=== PATIENT | male | born 1935 | race Caucasian/White ===

== ENCOUNTER → 2017-12-16 12:01 | Outpatient (CLI) | payer MEDICARE, SELFPAY ==
[2017-12-16 12:51] LABS: Add Manual Diff / Slide Review NO; Basophils Percent Auto 0.2 % (0-2); Eosinophils Percent Auto 1.1 % (2-4); Hematocrit 43.7 % (41-53); Hemoglobin 14.8 g/dL (13.5-17.5); Lymphocytes Percent Auto 7.9 % (25-40); Mean Corpuscular HGB Conc 33.8 % (30-36); Mean Corpuscular Hemoglobin 32.6 PG (26-34); Mean Corpuscular Volume 96.4 fL (80-100); Monocytes Percent Auto 5.5 % (3-14); Neutrophils Absolute Auto 8100 /uL (3000-5900); Neutrophils Percent Auto 85.3 % (50-75); Platelet Count 243 X10^3/uL (150-400); Red Blood Cell Count 4.53 X10^6/uL (4.5-5.9); Red Cell Distribution Width 13.6 % (11.6-14.8); White Blood Cell Count 9.5 X10^3/uL (4.5-11.0)
[2017-12-16 12:53] LABS: Alanine Aminotransferase 29 IU/L (21-72); Albumin 4.4 g/dL (3.5-5.0); Albumin Globulin Ratio 1.5 (1.0-2.8); Alkaline Phosphatase 50 U/L (38-126); Aspartate Aminotransferase 27 IU/L (17-59); BUN Creatinine Ratio 22.9 (6-22); Blood Urea Nitrogen 16 mg/dL (9-20); Calcium 9.9 mg/dL (8.4-10.2); Carbon Dioxide 36 mmol/L (22-32); Chloride 101 mmol/L (98-107); Cholesterol 254 mg/dL (140-199); Estimated Glomerular Filt Rate > 60.0 mL/min (>60); Globulin 2.9 g/dL (1.7-4.1); Glucose 89 mg/dL (80-110); HDL Cholesterol 53 mg/dL (40-60); HEMOLYSIS < 15 (0-50); LDL Cholesterol Calculated 165 mg/dL (<100); Potassium 4.1 mmol/L (3.4-5.1); Sodium 144 mmol/L (137-145); Total Protein 7.3 g/dL (6.3-8.2); Triglycerides 181 mg/dL (35-150)
[2017-12-16 14:05] LABS: TSH w/ Reflex to FT4 0.95 uIU/mL (0.47-4.68)
== END ==
PROVIDERS: Family Provider Family Medicine; PCP Family Medicine; Visit Provider Family Medicine
DX: E78.00 Pure hypercholesterolemia, unspecified (principal); I48.91 Unspecified atrial fibrillation; M35.3 Polymyalgia rheumatica
CPT/HCPCS: 36415; 80053; 80061; 84443; 85025

== ENCOUNTER → 2018-10-06 12:45 | Outpatient (CLI) | payer MEDICARE, SELFPAY | PROVIDERS: Family Provider Family Medicine; PCP Family Medicine; Visit Provider Family Medicine | DX: M35.3 Polymyalgia rheumatica (principal); M85.80 Other specified disorders of bone density and structure, unspecified site; M89.9 Disorder of bone, unspecified; R29.890 Loss of height | CPT/HCPCS: 77080; 77081 ==

== ENCOUNTER 2018-10-19 08:17 | Day surgery (SDC) | payer MEDICARE, SELFPAY ==
[2018-10-19 09:15] VITALS: BP 143/84; PULSE 91; RESP 16; TEMP 36.3; O2SAT 100
[2018-10-19 09:25] VITALS: BMI 21.7
[2018-10-19] MEDS: PROPARACAINE 0.5% OPHTH SOL 2 DROPS EYE-OP (09:34)
[2018-10-19] MEDS: CATARACT EYE COMPOUND (10 DROPS/SYRINGE) 3 DROPS EYE-OP (09:35)
--- NOTE | 2018-10-19 09:48 | PM.PREOP ---
Pre-operative Note Interval Note History & Physical reviewed/Exam performed by Physician: No Changes to H&P: No
--- NOTE | 2018-10-19 09:48 | PM.OP.1 ---
Operative Date/Time/Diagnoses Pre-op diagnosis: Nuclear cataract right eye Procedure & Clinicians Procedure: Cataract Surgery Same procedure as scheduled: Yes Surgeon: Mandeep Astorga Anesthesia Type: MAC +/- and Sedation Operative Notes Procedure in detail: Patient brought to the operating suite. Tetracaine drops placed in the right eye. Patient was prepped and draped in sterile manner. Wire lid speculum was placed in the eye. Betadine drops were placed on the eye. This was irrigated. Lidocaine jelly was placed on the eye. A paracentesis port was created with a side-port blade. 0.1 mL 1% preservative free lidocaine was injected into the anterior chamber. The anterior chamber was deepened with viscoelastic. 2.6 mm keratome was used to create a temporal clear corneal incision. The pupil was floppy and miotic. A 6.25 mm Malugyin ring was used to enlarge the pupil. Cystotome and Utrata forceps were used to create continuous tear capsulorrhexis. Balanced salt solution was used to hydro dissect the nucleus. The phacoemulsification handpiece was inserted and the nucleus was removed using the stop and chop technique. The irrigation aspiration handpiece was inserted and the remaining cortex was removed. Anterior chamber was deepened with viscoelastic. An Neil ZCB00 intraocular lens with a power of 20.5 was injected into the capsular bag. The malyugin ring was removed. Irrigation aspiration handpiece was inserted and the remaining viscoelastic was removed. Incision was hydrated with balanced salt solution and found to be leak free with pressure with Weck-Cat sponges. 0.1 mL Vigamox injected anterior chamber. 0.3 mL Kenalog 10 mg was injected subconjunctivally. Lid speculum was removed. The patient left the operating room in excellent condition. Complications: none Condition: stable Disposition: same day surgery
--- NOTE | 2018-10-19 10:23 | SUR.OPER ---
Supine on eye stretcher, head on extension cradle secured with tape. Arms tucked at sides with blanket. Pillow under knees. Supine on eye stretcher, head on extension cradle secured with tape. Arms tucked at sides with blanket. Pillow under knees.
--- NOTE | 2018-10-19 10:23 | SUR.OPER ---
Supine on eye stretcher, head on extension cradle secured with tape. Arms tucked at sides with blanket. Pillow under knees.
[2018-10-19] MEDS: MOXIFLOXACIN OPHTH DROPS 3 ML BOTTLE 2 DROPS INJ ×2 (10:29)
[2018-10-19] MEDS: TETRACAINE 0.5% OPHTH DROPS 15 ML 2 DROPS EYE-RIGHT (10:30)
[2018-10-19] MEDS: CHONDROIDTIN/SOD HYALURONATE 1.05 ML SYRINGE INTRAOCULA (10:30)
[2018-10-19] MEDS: TRIAMCINOLONE 50 MG/5 ML VIAL INJ (10:30)
[2018-10-19] MEDS: BALANCED SALT IRRIG SOLN NO.2 500 ML, EPINEPHrine 1 MG IRR (10:31)
[2018-10-19 10:40] VITALS: BP 103/70; PULSE 81; RESP 14; TEMP 36.1; O2SAT 100
== END 2018-10-19 10:52 | disposition home or self-care (01) ==
LOC: OR 08:20
PROVIDERS: Family Provider Family Medicine; PCP Family Medicine; Visit Provider Ophthalmology
PROC: (CPT 66984; principal; 2018-10-19 10:15)
DX: H25.11 Age-related nuclear cataract, right eye (principal); I48.91 Unspecified atrial fibrillation
CPT/HCPCS: 66984; J0171; J2250; J3010; J3301

== ENCOUNTER 2018-11-09 09:14 | Day surgery (SDC) | payer MEDICARE, SELFPAY ==
[2018-11-09 09:51] VITALS: BMI 22.2
[2018-11-09 09:58] VITALS: BP 107/58; PULSE 74; RESP 16; TEMP 36.6; O2SAT 99
[2018-11-09] MEDS: PROPARACAINE 0.5% OPHTH SOL 2 DROPS EYE-OP (10:00)
[2018-11-09] MEDS: CATARACT EYE COMPOUND (10 DROPS/SYRINGE) 3 DROPS EYE-OP (10:05)
--- NOTE | 2018-11-09 11:23 | PM.PREOP ---
Pre-operative Note Interval Note History & Physical reviewed/Exam performed by Physician: No Changes to H&P: No
--- NOTE | 2018-11-09 11:23 | PM.OP.1 ---
Operative Date/Time/Diagnoses Pre-op diagnosis: Nuclear Cataract Left eye Post-op diagnosis: same Procedure & Clinicians Surgeon: Mandeep Astorga Anesthesia Type: MAC +/- and Sedation Operative Notes Procedure in detail: Patient brought to the operating suite. Tetracaine drops placed in the left eye. Patient was prepped and draped in sterile manner. Wire lid speculum was placed in the eye. Betadine drops were placed on the eye. This was irrigated. Lidocaine jelly was placed on the eye. A paracentesis port was created with a side-port blade. 0.1 mL 1% preservative free lidocaine was injected into the anterior chamber. The anterior chamber was deepened with viscoelastic. 2.6 mm keratome was used to create a temporal clear corneal incision. The pupil was floppy and miotic. A 6.25mm Malyugin ring was used to enlarge the pupil. Cystotome and Utrata forceps were used to create continuous tear capsulorrhexis. Balanced salt solution was used to hydro dissect the nucleus. The phacoemulsification handpiece was inserted and the nucleus was removed using the stop and chop technique. The irrigation aspiration handpiece was inserted and the remaining cortex was removed. Anterior chamber was deepened with viscoelastic. An Neil ZCB00 intraocular lens with a power of 21.0 was injected into the capsular bag. The Malyugin ring was removed. A tear was noted in the anterior capsule. This did not extend and there was no vitreous. Irrigation aspiration handpiece was inserted and the remaining viscoelastic was removed. Incision was hydrated with balanced salt solution and found to be leak free with pressure with Weck-Cat sponges. 0.1 mL Vigamox injected anterior chamber. 0.3 mL Kenalog 10 mg was injected subconjunctivally. Lid speculum was removed. The patient left the operating room in excellent condition. Complications: none Condition: stable Disposition: same day surgery
[2018-11-09] MEDS: PHENYLEPHRINE/LIDOCAINE VIAL (OR) 0.2 ML EYE-OP (11:41)
[2018-11-09] MEDS: TRIAMCINOLONE 50 MG/5 ML VIAL INJ (11:42)
[2018-11-09] MEDS: MOXIFLOXACIN INJ 5 MG/ML VIAL EYE-OP (11:42)
[2018-11-09] MEDS: LIDOCAINE JELLY 2% 5 ML 1 APPLIC TOP (11:43)
[2018-11-09] MEDS: BALANCED SALT IRRIG SOLN NO.2 500 ML, EPINEPHrine 1 MG IRR (11:43)
[2018-11-09] MEDS: CHONDROIDTIN/SOD HYALURONATE 1.05 ML SYRINGE INTRAOCULA (11:43)
[2018-11-09] MEDS: TETRACAINE 0.5% OPHTH DROPS 4 ML 2 DROPS EYE-OP (11:43)
[2018-11-09 12:05] VITALS: BP 105/65; PULSE 84; RESP 16; TEMP 36.2; O2SAT 100
--- NOTE | 2018-11-09 15:06 | SUR.PREOP ---
Addendum entered by Prachi Garcia R.N. 11/09/18 15:13: bag place in safe bag [id number] and logged into the safe book. Original Note: 1500 Staff found gold colored ring in OR room 1; remembered pt taking off ring. I called and spoke to his , she checked her 's hand (he was sleeping) and found that it was missing. She described it as gold and square. 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
--- NOTE | 2018-11-09 15:19 | SUR.PREOP ---
pre p pt took off gold band . he was planning on giving it to his pre op. when i asked pt if he handed it off he told me he had. I never witnessed it. later the band was found in the OR. placed in to valuables for pt to pickling grader later
== END 2018-11-09 12:10 | disposition home or self-care (01) ==
LOC: OR 09:16
PROVIDERS: Family Provider Family Medicine; PCP Family Medicine; Visit Provider Ophthalmology
PROC: (CPT 66982; principal; 2018-11-09 11:15)
DX: H25.12 Age-related nuclear cataract, left eye (principal); I48.91 Unspecified atrial fibrillation; E78.00 Pure hypercholesterolemia, unspecified; Z79.01 Long term (current) use of anticoagulants
CPT/HCPCS: 66982; J0171; J2250; J3301

== ENCOUNTER → 2018-11-24 12:40 | Outpatient (CLI) | payer MEDICARE, SELFPAY ==
[2018-11-24 13:11] LABS: Hematocrit 41.9 % (41-53); Hemoglobin 14.2 g/dL (13.5-17.5); Mean Corpuscular HGB Conc 33.8 % (30-36); Mean Corpuscular Hemoglobin 33.4 PG (26-34); Mean Corpuscular Volume 98.7 fL (80-100); Platelet Count 238 X10^3/uL (150-400); Red Blood Cell Count 4.25 X10^6/uL (4.5-5.9); Red Cell Distribution Width 14.6 % (11.6-14.8); White Blood Cell Count 6.5 X10^3/uL (4.5-11.0)
[2018-11-24 13:56] LABS: Alanine Aminotransferase 23 IU/L (21-72); Albumin Globulin Ratio 1.5 (1.0-2.8); Alkaline Phosphatase 60 U/L (38-126); Aspartate Aminotransferase 30 IU/L (17-59); BUN Creatinine Ratio 23.3 (6-22); Blood Urea Nitrogen 14 mg/dL (9-20); Calcium 9.7 mg/dL (8.4-10.2); Carbon Dioxide 29 mmol/L (22-32); Chloride 100 mmol/L (98-107); Estimated Glomerular Filt Rate > 60.0 mL/min (>60); Globulin 2.6 g/dL (1.7-4.1); Glucose 105 mg/dL (80-110); HEMOLYSIS < 15 (0-50); Sodium 139 mmol/L (137-145); Total Protein 6.6 g/dL (6.3-8.2); Uric Acid 5.7 mg/dL (3.5-8.5)
[2018-11-24 13:59] LABS: Erythrocyte Sedimentation Rate 7 MM/HR (0-15)
[2018-11-24 14:09] LABS: C-Reactive Protein Quant < 0.5 mg/dL (<1.0)
[2018-11-24 14:21] LABS: TSH w/ Reflex to FT4 1.09 uIU/mL (0.47-4.68)
== END ==
PROVIDERS: PCP Family Medicine; Visit Provider Family Medicine
DX: E78.00 Pure hypercholesterolemia, unspecified (principal); M35.3 Polymyalgia rheumatica; M47.816 Spondylosis without myelopathy or radiculopathy, lumbar region; M51.36 Other intervertebral disc degeneration, lumbar region
CPT/HCPCS: 36415; 80053; 84443; 84550; 85027; 85651; 86140

== ENCOUNTER 2019-06-30 11:57 | Inpatient (IN) | payer MEDICARE, SELFPAY ==
[2019-06-30] VITALS (29 sets, daily range): BP systolic 69–139; BP diastolic 40–92; PULSE 74–156; RESP 12–27; TEMP 36.1–36.8; O2SAT 93–100; BMI 21.3
--- NOTE | 2019-06-30 | PATH_ITS ---
[facility] Accession Number: [id number] . 01 Material submitted: . colon - COLON BIOPSY AT 30 CM . 02 Diagnosis: Colon At 30 CM, Biopsy: Fragments of ulcer bed; please see comment. No intact colonic mucosa present. No neoplasm identified. [facility] 07/04/2019 1306 Local . 02 Comment: The finding of ulcer raises a differential diagnosis including infection, drug/toxin-induced injury, ischemia, and in the appropriate clinical setting, idiopathic inflammatory bowel disease. . . . 02 Electronically signed: . Jamey Harris MD, PhD, Pathologist NPI- [id number] . 01 Gross description: . Received in formalin, labeled colon biopsy @ 30 cm, are multiple fragments of infante tissue (0.8 x 0.5 x 0.1 cm in aggregate). Filtered and entirely submitted in cassette A1. ([id number]) /MRV 07/03/2019 2159 Local . 02 Pathologist provided ICD-10: K63.3 . 02 CPT . [id number] Performed at: 01 [facility] [address], [place], [place] [id number] MD Brad Macdonald MD Phone: [phone] Performed at: 02 [facility] [address] [place], [place] [id number] MD Zulay Castaneda MD Phone: [phone]
--- NOTE | 2019-06-30 12:20 | DI.RAD.S_ITS ---
PROCEDURE: XR CHEST 1V INDICATIONS: Flu like symptoms TECHNIQUE: One view of the chest was acquired. COMPARISON: [facility], , CHEST 2 VIEW, 07/19/2014, 10:10. FINDINGS: Surgical changes and devices: None. Lungs and pleura: Lungs are clear. No pleural effusions or pneumothorax. Chronic elevation of right hemidiaphragm. Mediastinum: Mediastinal contours appear normal. Heart size is normal. Bones and chest wall: No suspicious bony lesions. Overlying soft tissues appear unremarkable. IMPRESSION: No evidence acute pulmonary process. Dictated by: John Rebollar M.D. on 06/30/2019 at 12:42 Approved by: John Rebollar M.D. on 06/30/2019 at 12:44
--- NOTE | 2019-06-30 12:30 | ED_ITS ---
HPI - Weakness General Chief complaint: Weakness Stated complaint: very depressed/suicidal/fall Time Seen by Provider: 06/30/19 12:19 Source: patient and family Limitations: no limitations History of Present Illness HPI Narrative: This is a 84-year-old male comes to the emergency department with complaint of feeling weak and unwell for the past several days. He states he has pain all over from multiple falls he falls quite frequently most recently was yesterday. He did not think he had a head injury initially but is unsure. He is on warfarin. His weakness has been generalized. He has also felt like his heart rate has been elevated at times. He denies any chest pain or pressure. He denies any shortness of breath. He denies any nausea or vomiting he has had some achiness in his belly but denies any discrete pain. He has had bright red blood in his stool for the past 4 days and describes loose stools with a ?sheet of bright red blood when he wipes. Patient takes warfarin for atrial fibrillation. His primary care to stop the digoxin about a week ago as he has been feeling increasingly weak and they thought this may be part of his symptomatology. He also has a history of colon cancer, aortic aneurysm, dyslipidemia, hypertension, prior lung cancer, prior salivary gland cancer, TIA, and chronic lumbar/mid and low back pain. Related Data Home Medications Medication Instructions Recorded Confirmed CYANOCOBALAMIN (VITAMIN B-12) 1 tab PO QDAY #0 07/22/12 06/30/19 cholecalciferol (vitamin D3) 1,000 unit PO QDAY #0 01/20/17 06/30/19 [Vitamin D3] Previous Rx's Medication Instructions Recorded sildenafil (pulm.hypertension) 20 See Rx Instructions PO .PRN #30 tab 05/31/18 mg tablet losartan 50 mg tablet 25 mg PO QDAY #45 tab 08/24/18 digoxin 125 mcg (0.125 mg) tablet 125 mcg PO QDAY #90 tab 11/19/18 tamsulosin 0.4 mg capsule 0.4 mg PO DAILY #90 cap 11/24/18 ipratropium bromide 42 mcg (0.06 2 spray NASAL QID #15 ml 01/14/19 %) nasal spray prednisone 5 mg tablet 10 mg PO QDAY #180 tab 01/28/19 warfarin 2.5 mg tablet 2.5 mg PO DAILY #130 tab 02/28/19 metoprolol succinate 25 mg 25 mg PO QDAY #90 tab 05/09/19 tablet,extended release 24 hr Allergies Allergy/AdvReac Type Severity Reaction Status Date / Time iodine [IODINE] Allergy Mild FACIAL Verified 06/30/19 12:28 SWELLING Patient History Medical History Ankle pain (Chronic) Anxiety (Acute) Aortic aneurysm (Chronic) Atrial fibrillation (Chronic) Cancer of parotid gland (Resolved) Chronic back pain (Chronic) Chronic cough (Chronic) Colorectal cancer (Resolved) Foot pain (Chronic) Head and neck cancer (Resolved) Hyperlipidemia (Chronic) Hypertension (Chronic) Lumbar spine pain (Chronic) Lung cancer (Resolved) Mid back pain (Chronic) Osteopenia (Chronic 2015) Positive PPD (Resolved) Salivary gland cancer (Resolved) TIA (transient ischemic attack) (Resolved) Surgical History Anesthesia (Resolved) History of head, eyes, ears, nose, and throat (HEENT) surgery (Resolved) History of sinus surgery (Resolved) History of surgery of head (Resolved) History of throat surgery (Resolved) Status post cervical spinal fusion (Resolved) Status post colectomy (Resolved) Status post lumbar laminectomy (Resolved) Family History Brother Heart disease Mother Breast cancer Heart disease Father Heart disease Social History marital status: household members: spouse Smoking Status: Former smoker alcohol intake: current (2+ A DAY ) substance use type: does not use Smoking Status: Former smoker alcohol intake frequency: 0-2 drinks per day Substance Use Type: does not use Exam Narrative Exam Narrative: GEN: Patient appears in mild distress. HEAD: No evidence of trauma, no raccoon/Guerrero sign. NECK: Nontender, painless range of motion, trachea midline Negative Nexus criteria, there is no mid line tenderness, distracting injury, altered mental status, neuro deficit, recent EtOH. EYES: PERRLA, EOMI ENT: External inspection normal, trachea is midline, TM's are normal no hemotypanum, no dental or oral injury, airway is normal and with normal occlusion, No bony tenderness RESP: Chest is nontender and has symmetric movement, no ecchymosis, breath sounds are normal no crackles, wheezes or rales, patient does have bruises on his anterior chest consistent with prior falls and landing on his walker. CVS: Heart sounds are normal, no murmur noted, No JVD. ABG/GI: Nontender, soft, normal bowel sounds, no distention, no organomegaly, pelvic rock is negative GENIT, RECTAL: Normal external inspection, normal rectal tone, [prostate is in normal position] NEURO: Oriented AOx3, neuro is grossly intact, sensation and motor is normal all 4 extremities moving, cranial nerves II through XII are intact, GCS is 15 PSYCH: Normal mood and affect SKIN: Intact, warm and dry, no crepitus and without decubitus BACK: No CVA tenderness, no vertebral tenderness, no step-off's, no crepitus EXT: Atraumatic, hips are nontender, no pedal edema, normal color and temperature, normal range of motion of extremities with normal tendon exam, 2+ pulses in all four extremities Initial Vital Signs Initial Vital Signs: Vital Signs Temperature 97.9 F 06/30/19 12:00 Pulse Rate 125 H 06/30/19 12:00 Respiratory Rate 20 06/30/19 12:00 Blood Pressure 77/40 L 06/30/19 12:00 Pulse Oximetry 97 06/30/19 12:00 Course Orders Ordered: ED Orders 06/30/19 12:15 Complete Blood Count AUTO DIFF Stat Comprehensive Metabolic Panel Stat Digoxin Stat Lactate (Lactic Acid) Stat Magnesium Stat NT-proBNP (BNP-Adult 18+) Stat Packed Cells Stat Partial Thromboplastin Time Stat Prothrombin Time INR Stat Thyroid Stimulating Hormone Stat Troponin & CK Cardiac Panel Stat Type and Screen Stat 06/30/19 12:20 XR chest 1V Stat EKG-12 Lead Stat 06/30/19 12:43 CT abdomen pelvis w con Stat CT head/brain wo con Stat 06/30/19 14:13 Urine Culture Stat Urine Microscopic Stat Discontinued Medications Digoxin (Lanoxin) 500 mcg IV NOW ONE Stop: 06/30/19 12:31 Last Admin: 06/30/19 12:37 Dose: 500 mcg Documented by: MARYSOL Fentanyl (Sublimaze) 25 mcg IV NOW ONE Stop: 06/30/19 13:40 Last Admin: 06/30/19 13:49 Dose: 25 mcg Documented by: KRISTALONEStan Sodium Chloride (Normal Saline 0.9%) 1,000 mls @ 1,000 mls/hr IV BOLUS ONE Stop: 06/30/19 13:43 Last Infusion: 06/30/19 14:20 Dose: 0 mls/hr Documented by: Admin: 06/30/19 12:52 Dose: 1,000 mls/hr Documented by: MARYSOL Phytonadione 5 mg/ Dextrose 50.5 mls @ 101 mls/hr IV NOW ONE Stop: 06/30/19 14:47 Last Infusion: 06/30/19 16:14 Dose: 0 mls/hr Documented by: Admin: 06/30/19 15:20 Dose: 101 mls/hr Documented by: GEOFF Methylprednisolone (Solu-Medrol 125 Mg Vial) 125 mg IV NOW ONE Stop: 06/30/19 13:40 Last Admin: 06/30/19 13:49 Dose: 125 mg Documented by: GEOFF Pantoprazole Sodium (Protonix) 40 mg IV NOW ONE Stop: 06/30/19 15:03 Last Admin: 06/30/19 15:20 Dose: 40 mg Documented by: GEOFF Vital Signs Vital signs: Vital Signs - 8 hr 06/30/19 12:00 06/30/19 12:11 06/30/19 12:20 Temperature 97.9 F Pulse Rate 125 H 110 H 154 H Respiratory Rate 20 22 22 Blood Pressure 77/40 L Blood Pressure [Left Arm] 106/58 L 99/58 L Pulse Oximetry 97 99 95 06/30/19 12:30 06/30/19 12:37 06/30/19 13:30 Temperature Pulse Rate 140 H 140 H 120 H Respiratory Rate 20 24 Blood Pressure 86/61 L Blood Pressure [Left Arm] 88/61 L 133/92 H Pulse Oximetry 96 98 06/30/19 14:04 06/30/19 15:00 Temperature Pulse Rate 118 H 90 Respiratory Rate 27 H 25 H Blood Pressure Blood Pressure [Left Arm] 99/66 124/58 L Pulse Oximetry 93 95 MDM - Weakness Lab Data Attestation: I reviewed the patient's lab results. Result diagrams: 06/30/19 12:15 06/30/19 12:15 Labs: Lab Results 06/30/19 06/30/19 06/30/19 Range/Units 12:15 12:15 12:15 WBC 8.0 (4.5-11.0) X10^3/uL RBC 2.58 L (4.5-5.9) X10^6/uL Hgb 8.5 L (13.5-17.5) g/dL Hct 25.6 L (41-53) % MCV 99.1 (80-100) fL MCH 33.0 (26-34) PG MCHC 33.4 (30-36) % RDW 13.6 (11.6-14.8) % Plt Count 250 (150-400) X10^3/uL Neut % (Auto) 83.9 H (50-75) % Lymph % (Auto) 9.7 L (25-40) % Ransom % (Auto) 5.6 (3-14) % Eos % (Auto) 0.3 L (2-4) % Baso % (Auto) 0.5 (0-2) % Neut # (Auto) 6700 (2759-7005) /uL Lymph # (Auto) 800 L (0721-3895) /uL Ransom # (Auto) 400 (0-900) /uL Eos # (Auto) 0 (0-450) /uL Baso # (Auto) 0 (0-100) /uL PT 29.6 H (10.1-12.7) SECONDS INR 2.6 H (0.9-1.3) APTT 35 (26.4-36.2) SECONDS Sodium 136 L (137-145) mmol/L Potassium 3.9 (3.4-5.1) mmol/L Chloride 104 (98-107) mmol/L Carbon Dioxide 25 (22-32) mmol/L BUN 37 H (9-20) mg/dL Creatinine 0.63 L (0.66-1.25) mg/dL Estimated GFR > 60.0 (>60) mL/min BUN/Creatinine Ratio 58.7 H (6-22) Glucose 135 H (80-110) mg/dL Lactate (0.7-2.1) mmol/L Calcium 8.7 (8.4-10.2) mg/dL Magnesium (1.6-2.3) mg/dL Total Bilirubin 0.6 (0.2-1.3) mg/dL AST 22 (17-59) IU/L ALT 14 (<50) IU/L Alkaline Phosphatase 49 (38-126) U/L Total Creatine Kinase 36 L (55-170) U/L CK-MB (CK-2) TNP CK-MB (CK-2) Rel Index TNP Troponin I < 0.012 (0.01-0.034) ng/mL NT-Pro-B Natriuret Pep 720 H (<450) pg/mL Total Protein 5.8 L (6.3-8.2) g/dL Albumin 3.2 L (3.5-5.0) g/dL Globulin 2.6 (1.7-4.1) g/dL Albumin/Globulin Ratio 1.2 (1.0-2.8) TSH (0.47-4.68) uIU/mL Urine RBC (0-5/HPF) Urine WBC (0-5/HPF) Ur Squamous Epith Cells (0-5/HPF) Amorphous Sediment Urine Bacteria (None) Urine Mucus (Negative) Ur Culture Indicated? Digoxin (0.8-2.0) ng/mL Blood Type Antibody Screen Crossmatch 06/30/19 06/30/19 06/30/19 Range/Units 12:15 12:15 12:15 WBC (4.5-11.0) X10^3/uL RBC (4.5-5.9) X10^6/uL Hgb (13.5-17.5) g/dL Hct (41-53) % MCV (80-100) fL MCH (26-34) PG MCHC (30-36) % RDW (11.6-14.8) % Plt Count (150-400) X10^3/uL Neut % (Auto) (50-75) % Lymph % (Auto) (25-40) % Ransom % (Auto) (3-14) % Eos % (Auto) (2-4) % Baso % (Auto) (0-2) % Neut # (Auto) (3251-3587) /uL Lymph # (Auto) (9372-7974) /uL Ransom # (Auto) (0-900) /uL Eos # (Auto) (0-450) /uL Baso # (Auto) (0-100) /uL PT (10.1-12.7) SECONDS INR (0.9-1.3) APTT (26.4-36.2) SECONDS Sodium (137-145) mmol/L Potassium (3.4-5.1) mmol/L Chloride (98-107) mmol/L Carbon Dioxide (22-32) mmol/L BUN (9-20) mg/dL Creatinine (0.66-1.25) mg/dL Estimated GFR (>60) mL/min BUN/Creatinine Ratio (6-22) Glucose (80-110) mg/dL Lactate 3.2 H (0.7-2.1) mmol/L Calcium (8.4-10.2) mg/dL Magnesium (1.6-2.3) mg/dL Total Bilirubin (0.2-1.3) mg/dL AST (17-59) IU/L ALT (<50) IU/L Alkaline Phosphatase (38-126) U/L Total Creatine Kinase (55-170) U/L CK-MB (CK-2) CK-MB (CK-2) Rel Index Troponin I (0.01-0.034) ng/mL NT-Pro-B Natriuret Pep (<450) pg/mL Total Protein (6.3-8.2) g/dL Albumin (3.5-5.0) g/dL Globulin (1.7-4.1) g/dL Albumin/Globulin Ratio (1.0-2.8) TSH (0.47-4.68) uIU/mL Urine RBC (0-5/HPF) Urine WBC (0-5/HPF) Ur Squamous Epith Cells (0-5/HPF) Amorphous Sediment Urine Bacteria (None) Urine Mucus (Negative) Ur Culture Indicated? Digoxin < 0.4 L (0.8-2.0) ng/mL Blood Type A Positive Antibody Screen Negative Crossmatch See Detail 06/30/19 06/30/19 06/30/19 Range/Units 12:15 12:15 14:13 WBC (4.5-11.0) X10^3/uL RBC (4.5-5.9) X10^6/uL Hgb (13.5-17.5) g/dL Hct (41-53) % MCV (80-100) fL MCH (26-34) PG MCHC (30-36) % RDW (11.6-14.8) % Plt Count (150-400) X10^3/uL Neut % (Auto) (50-75) % Lymph % (Auto) (25-40) % Ransom % (Auto) (3-14) % Eos % (Auto) (2-4) % Baso % (Auto) (0-2) % Neut # (Auto) (6657-5745) /uL Lymph # (Auto) (6141-5364) /uL Ransom # (Auto) (0-900) /uL Eos # (Auto) (0-450) /uL Baso # (Auto) (0-100) /uL PT (10.1-12.7) SECONDS INR (0.9-1.3) APTT (26.4-36.2) SECONDS Sodium (137-145) mmol/L Potassium (3.4-5.1) mmol/L Chloride (98-107) mmol/L Carbon Dioxide (22-32) mmol/L BUN (9-20) mg/dL Creatinine (0.66-1.25) mg/dL Estimated GFR (>60) mL/min BUN/Creatinine Ratio (6-22) Glucose (80-110) mg/dL Lactate (0.7-2.1) mmol/L Calcium (8.4-10.2) mg/dL Magnesium 1.7 (1.6-2.3) mg/dL Total Bilirubin (0.2-1.3) mg/dL AST (17-59) IU/L ALT (<50) IU/L Alkaline Phosphatase (38-126) U/L Total Creatine Kinase (55-170) U/L CK-MB (CK-2) CK-MB (CK-2) Rel Index Troponin I (0.01-0.034) ng/mL NT-Pro-B Natriuret Pep (<450) pg/mL Total Protein (6.3-8.2) g/dL Albumin (3.5-5.0) g/dL Globulin (1.7-4.1) g/dL Albumin/Globulin Ratio (1.0-2.8) TSH 1.61 (0.47-4.68) uIU/mL Urine RBC None seen (0-5/HPF) Urine WBC 1-5/hpf (0-5/HPF) Ur Squamous Epith Cells 0-1 /hpf (0-5/HPF) Amorphous Sediment 1+ Urine Bacteria None seen (None) Urine Mucus 1+ H (Negative) Ur Culture Indicated? Specimen cultured Digoxin (0.8-2.0) ng/mL Blood Type Antibody Screen Crossmatch 06/30/19 Range/Units 14:40 WBC (4.5-11.0) X10^3/uL RBC (4.5-5.9) X10^6/uL Hgb (13.5-17.5) g/dL Hct (41-53) % MCV (80-100) fL MCH (26-34) PG MCHC (30-36) % RDW (11.6-14.8) % Plt Count (150-400) X10^3/uL Neut % (Auto) (50-75) % Lymph % (Auto) (25-40) % Ransom % (Auto) (3-14) % Eos % (Auto) (2-4) % Baso % (Auto) (0-2) % Neut # (Auto) (2573-2560) /uL Lymph # (Auto) (1406-2576) /uL Ransom # (Auto) (0-900) /uL Eos # (Auto) (0-450) /uL Baso # (Auto) (0-100) /uL PT (10.1-12.7) SECONDS INR (0.9-1.3) APTT (26.4-36.2) SECONDS Sodium (137-145) mmol/L Potassium (3.4-5.1) mmol/L Chloride (98-107) mmol/L Carbon Dioxide (22-32) mmol/L BUN (9-20) mg/dL Creatinine (0.66-1.25) mg/dL Estimated GFR (>60) mL/min BUN/Creatinine Ratio (6-22) Glucose (80-110) mg/dL Lactate 1.4 (0.7-2.1) mmol/L Calcium (8.4-10.2) mg/dL Magnesium (1.6-2.3) mg/dL Total Bilirubin (0.2-1.3) mg/dL AST (17-59) IU/L ALT (<50) IU/L Alkaline Phosphatase (38-126) U/L Total Creatine Kinase (55-170) U/L CK-MB (CK-2) CK-MB (CK-2) Rel Index Troponin I (0.01-0.034) ng/mL NT-Pro-B Natriuret Pep (<450) pg/mL Total Protein (6.3-8.2) g/dL Albumin (3.5-5.0) g/dL Globulin (1.7-4.1) g/dL Albumin/Globulin Ratio (1.0-2.8) TSH (0.47-4.68) uIU/mL Urine RBC (0-5/HPF) Urine WBC (0-5/HPF) Ur Squamous Epith Cells (0-5/HPF) Amorphous Sediment Urine Bacteria (None) Urine Mucus (Negative) Ur Culture Indicated? Digoxin (0.8-2.0) ng/mL Blood Type Antibody Screen Crossmatch Urine Dip Bedside Urine Glucose Negative Bedside Urine Bilirubin ++ 2 Bedside Urine Ketone - Negative Urine Specific [place] 1.010 Bedside Urine Occult Blood - Negative Bedside Urine pH 6.0 Bedside Urine Protein +/- 15 Bedside Urine Urobilinogen +/- 1mg Bedside Urine Nitrite - Negative Bedside Urine Leukocytes +/- [address] scan - head: Radiologist Impression: [address] [address] [address] Scan Report Signed Patient: Alex Galan BMR#: [id number] : 6Acct:[id number] Age/Sex: 84 / MDate of Service: 06/30/19 Loc: ED Accession Number: [id number] Procedure: CT head/brain wo con Ordering Provider: Pricila Wilcox D.O. PROCEDURE: CT HEAD/BRAIN WO CON INDICATIONS: multiple falls, on warfarin TECHNIQUE: Noncontrast 4.5 mm thick angled axial sections acquired from the foramen magnum to the vertex, with coronal and sagittal reformats. For radiation dose reduction, the following was used: automated exposure control, adjustment of mA and/or kV according to patient size. COMPARISON: [facility], MR, BRAIN WITHOUT CONTRAST, 05/19/2017, 13:49. [facility], MR, STROKE PROTOCOL, 01/09/2014, 13:15. [facility], CT, HEAD WITHOUT CONTRAST, 01/05/2014, 7:53. FINDINGS: Image quality: Excellent. CSF spaces: Basal cisterns are patent. No extra-axial fluid collections. The ventricles are symmetric in size and shape. Brain: No intracranial bleeds or masses. There is cerebral volume loss for age, with resultant ventricular and sulcal prominence. There are periventricular and deep white matter chronic small vessel ischemic changes. Old lacunar infarcts in the right thalamus and internal capsule. There is intracranial internal carotid artery atherosclerosis. Skull and face: Calvarium and visualized facial bones appear intact, without suspicious lesions. Sinuses: Visualized sinuses and mastoids are clear. IMPRESSION: 1. No acute intracranial abnormalities. 2. Cerebral volume loss and chronic microvascular ischemic changes. 2. Old lacunar infarcts. Dictated by: Dwight Gaviria M.D. on 06/30/2019 at 13:20 Approved by: Dwight Gaviria M.D. on 06/30/2019 at 13:24 CT scan - abdomen/pelvis: Radiologist Impression: [place] [address] CT Scan Report Signed Patient: Alex Galan BMR#: [id number] : 6Acct:[id number] Age/Sex: 84 / MDate of Service: 06/30/19 Loc: ED Accession Number: [id number] Procedure: CT abdomen pelvis w con Ordering Provider: Pricila Wilcox D.O. PROCEDURE: CT ABDOMEN PELVIS W CON INDICATIONS: rectal bleeding, BRB and hx colon ca TECHNIQUE: After the administration of intravenous contrast, 5 mm thick sections acquired from the diaphragm to the symphysis. 5 mm coronal and sagittal reformats were acquired. For radiation dose reduction, the following was used: automated exposure control, adjustment of mA and/or kV according to patient size. COMPARISON: None. FINDINGS: Image quality: Excellent. ABDOMEN: Lung bases: Lung bases are clear. 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 Scattered vascular calcifications seen in the aorta. Coronary artery calcifications are present. Solid organs: Liver is normal in size and enhancement. Gallbladder negative. Biliary system is non dilated. Pancreas enhances normally. Spleen is normal in size and enhancement. No adrenal nodules. Kidneys demonstrate normal size and enhancement, without hydronephrosis. Left renal cortical scarring/small infarcts. 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 Postsurgical changes, with surgical anastomosis present in the distal colon. Colonic diverticulosis is seen without evidence of acute complication. Normal appendix. No free fluid or air. Nodes and vessels: No retroperitoneal or mesenteric adenopathy by size criteria. Aorta and inferior vena cava are normal in size. Miscellaneous: No ventral hernias. PELVIS: Genitourinary: Bladder is unremarkable. Numerous pelvic surgical clips. Small bilateral fat-containing inguinal hernias. Bones: No suspicious bony lesions. No vertebral body compression fractures. Diffuse spondylosis and facet arthropathy IMPRESSION: Overall, no acute abnormality seen. 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 Postsurgical changes and chronic incidental findings as detailed above. Normal appendix Large amount of stool within the rectal vault raising the possibility of fecal retention/impaction ECG Data Attestation: I personally reviewed and interpreted this ECG as follows: Interpretation: AFib with rapid ventricular response rate of 119 QRS 80 and QTC 385. No obvious ST segment changes appreciated. MDM Narrative Medical decision making narrative: Patient comes in with AFib with RVR, patient did have his digoxin stopped about a week ago but he has also noticed bright red blood with his stool. His hemoglobin is 8.5 today was 14 in November of 2018 with a significant change. He does not have a white count or drop in his platelets. Patient is anticoagulated on Coumadin with an INR of 2.6. His labs show a sodium 136, BUN is 37 creatinine is and typical range for the patient. Glucose is 135 his lactate is elevated at 3.2, LFTs do not show any major abnormalities. Troponins negative with a BNP that is elevated at 720 with no priors for comparison. And TSH is 1.61. Does levels less than 0.4. No acute changes or obvious pulmonary edema. Negative this was ordered as patient has had multiple falls some hitting his head and is on Coumadin. He has old lacunar infarcts and chronic microvascular ischemic changes. With his history of colon cancer CT of abdomen pelvis was ordered as he has had bright red bleeding. This shows aneurysmal enlargement the ascending thoracic aorta measuring 4.7 cm. Patient has duodenal diverticulum with air-fluid level. Postsurgical changes and a large amount of stool in the rectal vault raising possibility of fecal impaction/retention. Patient does not have prior imaging available with AAA sizing but is aware of his AAA and has in his prior visits. I spoke with , patient does have a history of aneurysm and he states that it large and there was discussion about getting evaluated and repaired in the past but patient deferred at that time. Spoke with Dr. Javier, asks for patient to be prepped not today but potentially tomorrow. Order rapid covered as patient will go to the OR and needs to be ruled out, reversal of Coumadin and to prep patient medically with is afib with RVR so that he can tolerate sedation for a colonoscopy. Spoke with Dr. Nelson, she accepts for admission. Discussed patient is AFib RVR he does have a drop in his hemoglobin although unclear how quickly this occurred and he has also had his digoxin recently stopped in the last week or so so this could be a combination of events causing his tachycardia and hypotension versus is AFib or having his drop in hemoglobin cause him to flip into atrial fibrillat ion. Heart rate has been improving although not completely controlled with digoxin IV. Patient has a negative troponin but BNP is slightly elevated with no prior proBNP is available. His lactate elevated at 3.2 but was improved on repeat. Renal functions and electrolytes do not show major changes BUN is elevated at 37. Plan to give vitamin K 5mg. Covid testing for rule out sent as rapid test. Discharge Plan Departure Patient Disposition: Admitted as Observation Clinical Impression: Atrial fibrillation with RVR, GI bleed Admit Date/Time: 06/30/19 15:01 Admit Provider: Evelyn Nelson
[2019-06-30 12:31] LABS: Add Manual Diff / Slide Review NO; Basophils Absolute Auto 0 /uL (0-100); Basophils Percent Auto 0.5 % (0-2); Eosinophils Absolute Auto 0 /uL (0-450); Eosinophils Percent Auto 0.3 % (2-4); Hematocrit 25.6 % (41-53); Hemoglobin 8.5 g/dL (13.5-17.5); Lymphocytes Absolute Auto 800 /uL (1100-4500); Lymphocytes Percent Auto 9.7 % (25-40); Mean Corpuscular HGB Conc 33.4 % (30-36); Mean Corpuscular Volume 99.1 fL (80-100); Monocytes Absolute Auto 400 /uL (0-900); Monocytes Percent Auto 5.6 % (3-14); Neutrophils Absolute Auto 6700 /uL (1500-7000); Neutrophils Percent Auto 83.9 % (50-75); Platelet Count 250 X10^3/uL (150-400); Red Blood Cell Count 2.58 X10^6/uL (4.5-5.9); Red Cell Distribution Width 13.6 % (11.6-14.8)
[2019-06-30 12:33] LABS: INR 2.6 (0.9-1.3); Prothrombin Time 29.6 SECONDS (10.1-12.7)
[2019-06-30 12:35] LABS: PTT Partial Thromboplastin Tim 35 SECONDS (26.4-36.2)
[2019-06-30 12:37] LABS: Alanine Aminotransferase 14 IU/L (<50); Albumin 3.2 g/dL (3.5-5.0); Albumin Globulin Ratio 1.2 (1.0-2.8); Alkaline Phosphatase 49 U/L (38-126); Aspartate Aminotransferase 22 IU/L (17-59); BUN Creatinine Ratio 58.7 (6-22); Bilirubin Total 0.6 mg/dL (0.2-1.3); Blood Urea Nitrogen 37 mg/dL (9-20); Calcium 8.7 mg/dL (8.4-10.2); Carbon Dioxide 25 mmol/L (22-32); Chloride 104 mmol/L (98-107); Creatine Kinase 36 U/L (55-170); Estimated Glomerular Filt Rate > 60.0 mL/min (>60); Globulin 2.6 g/dL (1.7-4.1); Glucose 135 mg/dL (80-110); HEMOLYSIS < 15 (0-50); Potassium 3.9 mmol/L (3.4-5.1); Sodium 136 mmol/L (137-145); Total Protein 5.8 g/dL (6.3-8.2)
[2019-06-30] MEDS: DIGOXIN 500 MCG/2 ML AMPUL IV (12:37)
[2019-06-30 12:43] LABS: Lactate (Lactic Acid) 3.2 mmol/L (0.7-2.1)
--- NOTE | 2019-06-30 12:43 | DI.CT.S_ITS ---
PROCEDURE: CT HEAD/BRAIN WO CON INDICATIONS: multiple falls, on warfarin TECHNIQUE: Noncontrast 4.5 mm thick angled axial sections acquired from the foramen magnum to the vertex, with coronal and sagittal reformats. For radiation dose reduction, the following was used: automated exposure control, adjustment of mA and/or kV according to patient size. COMPARISON: [facility], MR, BRAIN WITHOUT CONTRAST, 05/19/2017, 13:49. [facility], MR, STROKE PROTOCOL, 01/09/2014, 13:15. [facility], CT, HEAD WITHOUT CONTRAST, 01/05/2014, 7:53. FINDINGS: Image quality: Excellent. CSF spaces: Basal cisterns are patent. No extra-axial fluid collections. The ventricles are symmetric in size and shape. Brain: No intracranial bleeds or masses. There is cerebral volume loss for age, with resultant ventricular and sulcal prominence. There are periventricular and deep white matter chronic small vessel ischemic changes. Old lacunar infarcts in the right thalamus and internal capsule. There is intracranial internal carotid artery atherosclerosis. Skull and face: Calvarium and visualized facial bones appear intact, without suspicious lesions. Sinuses: Visualized sinuses and mastoids are clear. IMPRESSION: 1. No acute intracranial abnormalities. 2. Cerebral volume loss and chronic microvascular ischemic changes. 2. Old lacunar infarcts. Dictated by: Dwight Gaviria M.D. on 06/30/2019 at 13:20 Approved by: Dwight Gaviria M.D. on 06/30/2019 at 13:24
--- NOTE | 2019-06-30 12:43 | DI.CT.S_ITS ---
PROCEDURE: CT ABDOMEN PELVIS W CON INDICATIONS: rectal bleeding, BRB and hx colon ca TECHNIQUE: After the administration of intravenous contrast, 5 mm thick sections acquired from the diaphragm to the symphysis. 5 mm coronal and sagittal reformats were acquired. For radiation dose reduction, the following was used: automated exposure control, adjustment of mA and/or kV according to patient size. COMPARISON: None. FINDINGS: Image quality: Excellent. ABDOMEN: Lung bases: Lung bases are clear. 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 Scattered vascular calcifications seen in the aorta. Coronary artery calcifications are present. Solid organs: Liver is normal in size and enhancement. Gallbladder negative. Biliary system is non dilated. Pancreas enhances normally. Spleen is normal in size and enhancement. No adrenal nodules. Kidneys demonstrate normal size and enhancement, without hydronephrosis. Left renal cortical scarring/small infarcts. 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 Postsurgical changes, with surgical anastomosis present in the distal colon. Colonic diverticulosis is seen without evidence of acute complication. Normal appendix. No free fluid or air. Nodes and vessels: No retroperitoneal or mesenteric adenopathy by size criteria. Aorta and inferior vena cava are normal in size. Miscellaneous: No ventral hernias. PELVIS: Genitourinary: Bladder is unremarkable. Numerous pelvic surgical clips. Small bilateral fat-containing inguinal hernias. Bones: No suspicious bony lesions. No vertebral body compression fractures. Diffuse spondylosis and facet arthropathy IMPRESSION: Overall, no acute abnormality seen. 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 Postsurgical changes and chronic incidental findings as detailed above. Normal appendix Large amount of stool within the rectal vault raising the possibility of fecal retention/impaction Dictated by: Devon Merchant M.D. on 06/30/2019 at 13:24 Approved by: Devon Merchant M.D. on 06/30/2019 at 13:38
[2019-06-30 12:48] LABS: NT-proBNP (BNP-Adult 18+) 720 pg/mL (<450); Troponin I < 0.012 ng/mL (0.01-0.034)
[2019-06-30] MEDS: SODIUM CHLORIDE 0.9% 1,000 ML 1000 ML IV (12:52)
[2019-06-30 12:57] LABS: Digoxin < 0.4 ng/mL (0.8-2.0)
[2019-06-30 13:03] LABS: Magnesium 1.7 mg/dL (1.6-2.3)
--- NOTE | 2019-06-30 13:11 | PC.NURSE ---
pt has had multiple falls recently. patient states the falls are causing pain all over.
[2019-06-30 13:34] LABS: Thyroid Stimulating Hormone 1.61 uIU/mL (0.47-4.68)
[2019-06-30] MEDS: fentaNYL 100 MCG/2 ML INJ 25 MCG IV (13:49)
[2019-06-30] MEDS: methylPREDNISolone 125 MG/2 ML VIAL IV (13:49)
[2019-06-30 14:31] LABS: Bacteria Urine None Seen; RBC Urine None Seen (0-5/HPF)
[2019-06-30 14:37] LABS: Reflexed Lactate in 2 Hours Y
[2019-06-30 14:45] LABS: Amorphous Sediment Urine 1+; Culture Indicated Urine Specimen Cultured; Mucus Urine 1+ (Negative); Squamous Epithelial Cell Urine 0-1 /HPF (0-5/HPF); WBC Urine 1-5/HPF (0-5/HPF)
[2019-06-30 14:57] LABS: Lactate 2HR (Lactic Acid Rflx) 1.4 mmol/L (0.7-2.1)
--- NOTE | 2019-06-30 15:02 | PM.CN ---
History of Present Illness Consult details Date Patient Seen: 06/30/19 Time Patient Seen: 15:03 Chief complaint: very depressed/suicidal/fall Reason for consult: GI bleed/anemia Requesting provider: Pricila Wilcox Narrative: The patient is a gentleman whose had a 4 day history of blood per rectum. Sometimes he passed a large amount of very dark stool. It appeared to him to be black. He has not had this before. He is anticoagulated on warfarin and has a long history of atrial fibrillation. He has been having upper abdominal pain. Is located mainly in the epigastric area. His last colonoscopy was over 10 years ago. He has a history of a colon cancer but he does not know what part of his colon was removed. Meds Home Medications and Allergies Home Medications Medication Instructions Recorded Confirmed Type CYANOCOBALAMIN (VITAMIN B-12) 1 tab PO QDAY #0 07/22/12 06/30/19 History cholecalciferol (vitamin D3) 1,000 unit PO QDAY #0 01/20/17 06/30/19 History [Vitamin D3] sildenafil (pulm.hypertension) 20 See Rx Instructions PO .PRN #30 tab 05/31/18 06/30/19 Rx mg tablet losartan 50 mg tablet 25 mg PO QDAY #45 tab 08/24/18 06/30/19 Rx digoxin 125 mcg (0.125 mg) tablet 125 mcg PO QDAY #90 tab 11/19/18 06/30/19 Rx tamsulosin 0.4 mg capsule 0.4 mg PO DAILY #90 cap 11/24/18 06/30/19 Rx ipratropium bromide 42 mcg (0.06 2 spray NASAL QID #15 ml 01/14/19 06/30/19 Rx %) nasal spray prednisone 5 mg tablet 10 mg PO QDAY #180 tab 01/28/19 06/30/19 Rx warfarin 2.5 mg tablet 2.5 mg PO DAILY #130 tab 02/28/19 06/30/19 Rx metoprolol succinate 25 mg 25 mg PO QDAY #90 tab 05/09/19 06/30/19 Rx tablet,extended release 24 hr Allergies Allergy/AdvReac Type Severity Reaction Status Date / Time iodine [IODINE] Allergy Mild FACIAL Verified 06/30/19 12:28 SWELLING Review of Systems Review of Systems Narrative: Has been generally weak the last few days and required using a cane or a walker which normally he did not need. Patient denies vomiting. No seizures or blackouts. He is not aware of ever having a heart attack. When asked if he has chest pain he says that he hurts from his head to his toes. He does get up at night to urinate but no blood in his urine. He takes medicine for an enlarged prostate. Exam Vital Signs (past 8 hours): - 06/30/19 12:00 06/30/19 12:11 06/30/19 12:20 Temperature 97.9 F Pulse Rate 125 H 110 H 154 H Respiratory Rate 20 22 22 Blood Pressure 77/40 L Blood Pressure [Left Arm] 106/58 L 99/58 L Pulse Oximetry 97 99 95 06/30/19 12:30 06/30/19 12:37 06/30/19 13:30 Temperature Pulse Rate 140 H 140 H 120 H Respiratory Rate 20 24 Blood Pressure 86/61 L Blood Pressure [Left Arm] 88/61 L 133/92 H Pulse Oximetry 96 98 06/30/19 14:04 Temperature Pulse Rate 118 H Respiratory Rate 27 H Blood Pressure Blood Pressure [Left Arm] 99/66 Pulse Oximetry 93 Oxygen Delivery Method Room Air Narrative Exam Narrative: Cooperative gentleman a little hard of hearing in no apparent distress. His eyes are nonicteric. Lungs are clear to auscultation. No rales or rhonchi. Heart irregularly irregular. He has a 2 to 3/6 blowing systolic murmur heard best at the bases with radiation into both sides of his neck. Abdomen is scaphoid soft. He has a vertical midline scar from the umbilicus down. No tenderness. No hernias appreciated. Patient is alert and oriented x3. Speech rate and content are appropriate. Affect is appropriate. His memory is fairly intact though he does have trouble remembering some details about his health. Patient is very thin with very little fat and no significant muscle mass suggesting possible chronic malnutrition. Objective Labs Result Diagrams: 06/30/19 12:15 06/30/19 12:15 Labs: Laboratory Results - last 24 hr 06/30/19 06/30/19 06/30/19 12:15 12:15 12:15 WBC 8.0 RBC 2.58 L Hgb 8.5 L Hct 25.6 L MCV 99.1 MCH 33.0 MCHC 33.4 RDW 13.6 Plt Count 250 Neut % (Auto) 83.9 H Lymph % (Auto) 9.7 L [place] % (Auto) 5.6 Eos % (Auto) 0.3 L Baso % (Auto) 0.5 Neut # (Auto) 6700 Lymph # (Auto) 800 L [place] # (Auto) 400 Eos # (Auto) 0 Baso # (Auto) 0 PT 29.6 H INR 2.6 H APTT 35 Sodium 136 L Potassium 3.9 Chloride 104 Carbon Dioxide 25 BUN 37 H Creatinine 0.63 L Estimated GFR > 60.0 BUN/Creatinine Ratio 58.7 H Glucose 135 H Lactate Calcium 8.7 Magnesium Total Bilirubin 0.6 AST 22 ALT 14 Alkaline Phosphatase 49 Total Creatine Kinase 36 L CK-MB (CK-2) TNP CK-MB (CK-2) Rel Index TNP Troponin I < 0.012 NT-Pro-B Natriuret Pep 720 H Total Protein 5.8 L Albumin 3.2 L Globulin 2.6 Albumin/Globulin Ratio 1.2 TSH Urine RBC Urine WBC Ur Squamous Epith Cells Amorphous Sediment Urine Bacteria Urine Mucus Ur Culture Indicated? Digoxin Blood Type Antibody Screen Crossmatch 06/30/19 06/30/19 06/30/19 12:15 12:15 12:15 WBC RBC Hgb Hct MCV MCH MCHC RDW Plt Count Neut % (Auto) Lymph % (Auto) [place] % (Auto) Eos % (Auto) Baso % (Auto) Neut # (Auto) Lymph # (Auto) [place] # (Auto) Eos # (Auto) Baso # (Auto) PT INR APTT Sodium Potassium Chloride Carbon Dioxide BUN Creatinine Estimated GFR BUN/Creatinine Ratio Glucose Lactate 3.2 H Calcium Magnesium Total Bilirubin AST ALT Alkaline Phosphatase Total Creatine Kinase CK-MB (CK-2) CK-MB (CK-2) Rel Index Troponin I NT-Pro-B Natriuret Pep Total Protein Albumin Globulin Albumin/Globulin Ratio TSH Urine RBC Urine WBC Ur Squamous Epith Cells Amorphous Sediment Urine Bacteria Urine Mucus Ur Culture Indicated? Digoxin < 0.4 L Blood Type A Positive Antibody Screen Negative Crossmatch See Detail 06/30/19 06/30/19 06/30/19 12:15 12:15 14:13 WBC RBC Hgb Hct MCV MCH MCHC RDW Plt Count Neut % (Auto) Lymph % (Auto) [place] % (Auto) Eos % (Auto) Baso % (Auto) Neut # (Auto) Lymph # (Auto) [place] # (Auto) Eos # (Auto) Baso # (Auto) PT INR APTT Sodium Potassium Chloride Carbon Dioxide BUN Creatinine Estimated GFR BUN/Creatinine Ratio Glucose Lactate Calcium Magnesium 1.7 Total Bilirubin AST ALT Alkaline Phosphatase Total Creatine Kinase CK-MB (CK-2) CK-MB (CK-2) Rel Index Troponin I NT-Pro-B Natriuret Pep Total Protein Albumin Globulin Albumin/Globulin Ratio TSH 1.61 Urine RBC None seen Urine WBC 1-5/hpf Ur Squamous Epith Cells 0-1 /hpf Amorphous Sediment 1+ Urine Bacteria None seen Urine Mucus 1+ H Ur Culture Indicated? Specimen cultured Digoxin Blood Type Antibody Screen Crossmatch 06/30/19 14:40 WBC RBC Hgb Hct MCV MCH MCHC RDW Plt Count Neut % (Auto) Lymph % (Auto) [place] % (Auto) Eos % (Auto) Baso % (Auto) Neut # (Auto) Lymph # (Auto) [place] # (Auto) Eos # (Auto) Baso # (Auto) PT INR APTT Sodium Potassium Chloride Carbon Dioxide BUN Creatinine Estimated GFR BUN/Creatinine Ratio Glucose Lactate 1.4 Calcium Magnesium Total Bilirubin AST ALT Alkaline Phosphatase Total Creatine Kinase CK-MB (CK-2) CK-MB (CK-2) Rel Index Troponin I NT-Pro-B Natriuret Pep Total Protein Albumin Globulin Albumin/Globulin Ratio TSH Urine RBC Urine WBC Ur Squamous Epith Cells Amorphous Sediment Urine Bacteria Urine Mucus Ur Culture Indicated? Digoxin Blood Type Antibody Screen Crossmatch Assessment & Plan Assessment & Plan narrative: Patient with an intestinal bleed. This could be a lower bleed but also likely to be upper given the darkness of the stool in his epigastric pain. He has an INR of 2.6. He had a fairly rapid atrial fibrillation apparently initially but has been given digoxin and had his heart rate has slowed at the time I am seeing him. He does appear to be quite thin and has lost fat and muscle mass. Effects of Coumadin are being reversed. Heart rate is being controlled. I would recommend a proton pump inhibitor Protonix 40 mg twice a day IV. I would recommend that he have an upper endoscopy and a colonoscopy. If the bleeding process continues with black stool an upper endoscopy should be done urgently. Otherwise I would bowel prep him tomorrow if his bleeding ceases and an EGD and colonoscopy could be done together on Thursday or Thursday. I would keep him NPO for now in case he needs an emergent EGD.
[2019-06-30] MEDS: PHYTONADIONE (VIT K1) 5 MG in DEXTROSE 5 % IN WATER 50 ML 101 ML IV (15:20)
[2019-06-30] MEDS: PANTOPRAZOLE 40 MG VIAL IV (15:20)
--- NOTE | 2019-06-30 16:17 | PC.NURSE ---
late entry, patient arrived with heart rate of 130's to 150's. pt tolerated the digoxin well. his heart rate did come down to 100'-120', as charted in his vitals. pt started his fluid bolus of NS of 1000mls. with in 300mls pt heart rate down to 80's-100s. pt bp also more stable. pt states he was feeling better. after pt CT scan, complaints of pain increasing and having tremors, pt oral temp 97.5 rec'd orders for pain medicine.
[2019-06-30] MEDS: PHYTONADIONE (VIT K1) 10 MG in DEXTROSE 5 % IN WATER 50 ML 102 ML IV (18:07)
[2019-06-30 18:10] LABS: Hematocrit 22.4 % (41-53); Hemoglobin 7.4 g/dL (13.5-17.5)
[2019-06-30] MEDS: HYDROCORTISONE 100 MG/2 ML VIAL IV (18:43)
[2019-06-30] MEDS: PANTOPRAZOLE 80 MG in SODIUM CHLORIDE 0.9% 100 ML 10 ML IV (18:45)
--- NOTE | 2019-06-30 18:46 | PM.PREOP ---
Pre-operative Note Interval Note History & Physical reviewed/Exam performed by Physician: Yes Changes to H&P: Yes H&P completed within 30 days and has changed as indicated here:: pt became hypotensive and tacchycardic after a large black bowel movement. He has been resuscitated with 2 units of prbc and a unit of FFP . His pulse is variable and his blood pressure has responded appropriately. He is alert. I discussed the procedure with him including risks of perforation, bleeding, cardiac issues, and aspiration. Anesthesia will be necessary to protect his airway and due to the critical nature of his condition
[2019-06-30] MEDS: MAGNESIUM SULFATE 2 GM/50 ML PIGGYBACK IV (18:51)
--- NOTE | 2019-06-30 18:55 | PM.HP.1 ---
History of Present Illness History of Present Illness Date Patient Seen: 06/30/19 Chief complaint: GI bleed, generalized weakness, falls Narrative: Alex Galan is an 84-year-old male with a past medical history significant for CAD, hypertension, hyperlipidemia, ascending aortic aneurysm, chronic atrial fibrillation on warfarin, BPH, colon cancer status post colon resection, parotid gland cancer status post parotidectomy, TIA, and polymyalgia rheumatica on prednisone who presented to the ED from PCP's office due to progressive worsening generalized weakness, multiple falls, and GI bleed. Upon entry to the room, the patient was on the toilet and was having symptomatic GI bleeding with lightheadedness. Multiple nursing staff moved patient to bed and he had a presyncopal episode in which he was briefly unresponsive and is eyes rolled into the back of his head. A rapid response was called. His systolic blood pressure was 69 mmHg and he was in atrial fibrillation with RVR with heart rate in te 160 to 180's. He was placed in Trendelenburg and given a normal saline bolus wide open until the 2 units of PRBCs on standby were brought up from blood bank. He is on warfarin and received another dose of vitamin K 10 mg IV x1 (previously received vitamin K 5 mg PO x 1 in ED) and he was started on a Protonix gtt (received Protonix 40 mg IV x1 in ED). His blood pressure improved with SBP 120s and heart rate 80-100 bpm. General surgery, Dr. Javier, was contacted and the patient was prepared to go to OR for upper endoscopy. The patient reports he has had multiple falls over the last 5 days with injury to his head several days ago. CT brain without contrast did not demonstrate any acute intracranial abnormalities. The patient reports he aches all over and he did not take his prednisone this morning. He received a stress dose of hydrocortisone 100 mg IV x1. He endorses generalized weakness, fatigue, and lightheadedness. He denies any shortness of breath, chest pain/pressure, nausea or vomiting. He complains of epigastric and mid abdominal pain that radiates to low abdomen over the last 1 week. The patient has had melanotic stool with occasional bright red blood per rectum. The patient was recently taken off of digoxin by his PCP due to concern for digoxin driven generalized weakness. The patient was found to be in atrial fibrillation with RVR in the ED and he was loaded with digoxin. The patient is admitted inpatient to intensive care unit for symptomatic GI bleed. Patient History Medical History Ankle pain (Chronic) Anxiety (Acute) Aortic aneurysm (Chronic) Atrial fibrillation (Chronic) Cancer of parotid gland (Resolved) Chronic back pain (Chronic) Chronic cough (Chronic) Colorectal cancer (Resolved) Foot pain (Chronic) Head and neck cancer (Resolved) Hyperlipidemia (Chronic) Hypertension (Chronic) Lumbar spine pain (Chronic) Lung cancer (Resolved) Mid back pain (Chronic) Osteopenia (Chronic 2015) Positive PPD (Resolved) Salivary gland cancer (Resolved) TIA (transient ischemic attack) (Resolved) Surgical History Anesthesia (Resolved) History of head, eyes, ears, nose, and throat (HEENT) surgery (Resolved) History of sinus surgery (Resolved) History of surgery of head (Resolved) History of throat surgery (Resolved) Status post cervical spinal fusion (Resolved) Status post colectomy (Resolved) Status post lumbar laminectomy (Resolved) Family & Social History Family History Brother Heart disease Mother Breast cancer Heart disease Father Heart disease Social History: household members spouse Safety & Behavioral: Feels Safe in Current Yes Environment Been Physically Hurt or No Threatened By a Person Tobacco & Substance use: Smoking Status Former smoker alcohol intake current alcohol intake frequency 0-2 drinks per day Substance Use Type does not use Meds Home Medications and Allergies Home Medications Medication Instructions Recorded Confirmed Type CYANOCOBALAMIN (VITAMIN B-12) 1 tab PO QDAY #0 07/22/12 06/30/19 History cholecalciferol (vitamin D3) 1,000 unit PO QDAY #0 01/20/17 06/30/19 History [Vitamin D3] sildenafil (pulm.hypertension) 20 See Rx Instructions PO .PRN #30 tab 05/31/18 06/30/19 Rx mg tablet losartan 50 mg tablet 25 mg PO QDAY #45 tab 08/24/18 06/30/19 Rx digoxin 125 mcg (0.125 mg) tablet 125 mcg PO QDAY #90 tab 11/19/18 06/30/19 Rx tamsulosin 0.4 mg capsule 0.4 mg PO DAILY #90 cap 11/24/18 06/30/19 Rx ipratropium bromide 42 mcg (0.06 2 spray NASAL QID #15 ml 01/14/19 06/30/19 Rx %) nasal spray prednisone 5 mg tablet 10 mg PO QDAY #180 tab 01/28/19 06/30/19 Rx warfarin 2.5 mg tablet 2.5 mg PO DAILY #130 tab 02/28/19 06/30/19 Rx metoprolol succinate 25 mg 25 mg PO QDAY #90 tab 05/09/19 06/30/19 Rx tablet,extended release 24 hr Allergies Allergy/AdvReac Type Severity Reaction Status Date / Time iodine [IODINE] Allergy Mild FACIAL Verified 06/30/19 12:28 SWELLING Review of Systems Review of Systems Narrative: A 10 system comprehensive review of systems was conducted with the patient and found to be negative except as above in the History of Present Illness. Exam Vital Signs (past 8 hours): - 06/30/19 14:04 06/30/19 15:00 06/30/19 16:35 Temperature 98.3 F Pulse Rate 118 H 90 117 H Respiratory Rate 27 H 25 H 18 Blood Pressure 128/76 Blood Pressure [Left Arm] 99/66 124/58 L Pulse Oximetry 93 95 94 06/30/19 18:00 06/30/19 18:09 06/30/19 18:14 Temperature 98.3 F 97.0 F L Pulse Rate 156 H 117 H 117 H Respiratory Rate 18 18 Blood Pressure 69/43 L 96/74 108/75 Blood Pressure [Left Arm] Pulse Oximetry 06/30/19 18:30 06/30/19 18:40 06/30/19 18:46 Temperature 97.4 F L 98.3 F 97.4 F L Pulse Rate 108 H 97 H 134 H Respiratory Rate 18 18 18 Blood Pressure 108/65 132/59 L 116/78 Blood Pressure [Left Arm] Pulse Oximetry 06/30/19 18:55 06/30/19 19:12 06/30/19 20:56 Temperature 98.3 F 98.2 F 97.1 F L Pulse Rate 97 H 107 H 83 Respiratory Rate 18 18 14 Blood Pressure 132/59 L 117/71 103/69 Blood Pressure [Left Arm] Pulse Oximetry 99 06/30/19 21:01 06/30/19 21:06 06/30/19 21:11 Temperature 97.1 F L 97.2 F L 96.9 F L Pulse Rate 76 98 H 74 Respiratory Rate 12 25 H 16 Blood Pressure 101/64 110/73 111/70 Blood Pressure [Left Arm] Pulse Oximetry 99 100 99 06/30/19 21:16 06/30/19 21:30 Temperature 97.6 F Pulse Rate 100 H 77 Respiratory Rate 22 16 Blood Pressure 111/64 117/77 Blood Pressure [Left Arm] Pulse Oximetry 100 100 Oxygen Delivery Method Room Air Oxygen Flow Rate 0 Narrative Exam Narrative: General: Elderly pale gentleman lying in bed and in mild distress with symptomatic GI bleed with lightheadedness. HEENT: Normocephalic, atraumatic. External ears without defect. Pupils equal, round, and reactive to light. Pale conjunctiva. No lid lag. Oropharynx free of erythema and cobble stoning with moist mucosa. Neck: Supple with full range of motion. No jugular venous distension. No lymphadenopathy or thyromegaly. Cardiovascular: Irregularly irregular, tachycardic, without murmurs, rubs, or gallops appreciated. Pulmonary: Clear to auscultation bilaterally without crackles, wheezes, or rhonchi. Normal respiratory effort with no use of accessory muscles. Abdomen: Soft, scaphoid, bowel sounds present, small palpable mass in mid right abdomen that is mildly tender, nondistended. No hepatosplenomegaly or masses appreciated. Extremities: No clubbing, cyanosis, or edema. Skin: Normal temperature, turgor, and texture; no rash, ulcers, or subcutaneous nodules appreciated. Neurological: Cranial nerves grossly intact. Psychiatric: Depressed mood and affect. Mild drowsiness. Appears oriented to person, place, and time. Patient reports has had suicidal thoughts in the past but has no suicide plan or intent to kill himself. Objective Labs Result Diagrams: 07/01/19 06:00 07/01/19 06:00 Labs: Laboratory Results - last 24 hr 06/30/19 06/30/19 06/30/19 12:15 12:15 12:15 WBC 8.0 RBC 2.58 L Hgb 8.5 L Hct 25.6 L MCV 99.1 MCH 33.0 MCHC 33.4 RDW 13.6 Plt Count 250 Neut % (Auto) 83.9 H Lymph % (Auto) 9.7 L [place] % (Auto) 5.6 Eos % (Auto) 0.3 L Baso % (Auto) 0.5 Neut # (Auto) 6700 Lymph # (Auto) 800 L [place] # (Auto) 400 Eos # (Auto) 0 Baso # (Auto) 0 PT 29.6 H INR 2.6 H APTT 35 Sodium 136 L Potassium 3.9 Chloride 104 Carbon Dioxide 25 BUN 37 H Creatinine 0.63 L Estimated GFR > 60.0 BUN/Creatinine Ratio 58.7 H Glucose 135 H Lactate Calcium 8.7 Magnesium Total Bilirubin 0.6 AST 22 ALT 14 Alkaline Phosphatase 49 Total Creatine Kinase 36 L CK-MB (CK-2) TNP CK-MB (CK-2) Rel Index TNP Troponin I < 0.012 NT-Pro-B Natriuret Pep 720 H Total Protein 5.8 L Albumin 3.2 L Globulin 2.6 Albumin/Globulin Ratio 1.2 TSH Urine RBC Urine WBC Ur Squamous Epith Cells Amorphous Sediment Urine Bacteria Urine Mucus Ur Culture Indicated? Digoxin Blood Type Antibody Screen Crossmatch 06/30/19 06/30/19 06/30/19 12:15 12:15 12:15 WBC RBC Hgb Hct MCV MCH MCHC RDW Plt Count Neut % (Auto) Lymph % (Auto) [place] % (Auto) Eos % (Auto) Baso % (Auto) Neut # (Auto) Lymph # (Auto) [place] # (Auto) Eos # (Auto) Baso # (Auto) PT INR APTT Sodium Potassium Chloride Carbon Dioxide BUN Creatinine Estimated GFR BUN/Creatinine Ratio Glucose Lactate 3.2 H Calcium Magnesium Total Bilirubin AST ALT Alkaline Phosphatase Total Creatine Kinase CK-MB (CK-2) CK-MB (CK-2) Rel Index Troponin I NT-Pro-B Natriuret Pep Total Protein Albumin Globulin Albumin/Globulin Ratio TSH Urine RBC Urine WBC Ur Squamous Epith Cells Amorphous Sediment Urine Bacteria Urine Mucus Ur Culture Indicated? Digoxin < 0.4 L Blood Type A Positive Antibody Screen Negative Crossmatch See Detail 06/30/19 06/30/19 06/30/19 12:15 12:15 14:13 WBC RBC Hgb Hct MCV MCH MCHC RDW Plt Count Neut % (Auto) Lymph % (Auto) [place] % (Auto) Eos % (Auto) Baso % (Auto) Neut # (Auto) Lymph # (Auto) [place] # (Auto) Eos # (Auto) Baso # (Auto) PT INR APTT Sodium Potassium Chloride Carbon Dioxide BUN Creatinine Estimated GFR BUN/Creatinine Ratio Glucose Lactate Calcium Magnesium 1.7 Total Bilirubin AST ALT Alkaline Phosphatase Total Creatine Kinase CK-MB (CK-2) CK-MB (CK-2) Rel Index Troponin I NT-Pro-B Natriuret Pep Total Protein Albumin Globulin Albumin/Globulin Ratio TSH 1.61 Urine RBC None seen Urine WBC 1-5/hpf Ur Squamous Epith Cells 0-1 /hpf Amorphous Sediment 1+ Urine Bacteria None seen Urine Mucus 1+ H Ur Culture Indicated? Specimen cultured Digoxin Blood Type Antibody Screen Crossmatch 06/30/19 06/30/19 06/30/19 14:40 18:05 18:58 WBC RBC Hgb 7.4 L Hct 22.4 L MCV MCH MCHC RDW Plt Count Neut % (Auto) Lymph % (Auto) [place] % (Auto) Eos % (Auto) Baso % (Auto) Neut # (Auto) Lymph # (Auto) [place] # (Auto) Eos # (Auto) Baso # (Auto) PT 25.3 H INR 2.2 H APTT Sodium Potassium Chloride Carbon Dioxide BUN Creatinine Estimated GFR BUN/Creatinine Ratio Glucose Lactate 1.4 Calcium Magnesium Total Bilirubin AST ALT Alkaline Phosphatase Total Creatine Kinase CK-MB (CK-2) CK-MB (CK-2) Rel Index Troponin I NT-Pro-B Natriuret Pep Total Protein Albumin Globulin Albumin/Globulin Ratio TSH Urine RBC Urine WBC Ur Squamous Epith Cells Amorphous Sediment Urine Bacteria Urine Mucus Ur Culture Indicated? Digoxin Blood Type Antibody Screen Crossmatch 06/30/19 06/30/19 18:58 18:58 WBC RBC Hgb 9.6 L Hct 28.4 L MCV MCH MCHC RDW Plt Count Neut % (Auto) Lymph % (Auto) [place] % (Auto) Eos % (Auto) Baso % (Auto) Neut # (Auto) Lymph # (Auto) [place] # (Auto) Eos # (Auto) Baso # (Auto) PT INR APTT Sodium 136 L Potassium 4.5 Chloride 107 Carbon Dioxide 22 BUN 34 H Creatinine 0.58 L Estimated GFR > 60.0 BUN/Creatinine Ratio 58.6 H Glucose 173 H Lactate Calcium 7.8 L Magnesium 1.5 L Total Bilirubin AST ALT Alkaline Phosphatase Total Creatine Kinase CK-MB (CK-2) CK-MB (CK-2) Rel Index Troponin I NT-Pro-B Natriuret Pep Total Protein Albumin Globulin Albumin/Globulin Ratio TSH Urine RBC Urine WBC Ur Squamous Epith Cells Amorphous Sediment Urine Bacteria Urine Mucus Ur Culture Indicated? Digoxin Blood Type Antibody Screen Crossmatch Assessment & Plan Assessment & Plan narrative: Alex Galan is an 84-year-old male with a past medical history significant for CAD, hypertension, hyperlipidemia, ascending aortic aneurysm, chronic atrial fibrillation on warfarin, BPH, colon cancer status post colon resection, parotid gland cancer status post parotidectomy, TIA, and polymyalgia rheumatica on prednisone who presented to the ED from PCP's office due to progressive worsening generalized weakness, multiple falls, and GI bleed. 1. Acute symptomatic GI bleed with acute blood loss anemia, generalized weakness and hypotension, present on admission. Active. -Patient presented with generalized weakness and fatigue x1 week with associated melena and occasional hematochezia. -CT abdomen and pelvis with contrast did not demonstrate any acute abnormalities. Note is made of CAD, aneurysmal enlargement of ascending thoracic aorta, and large amount of stool within the rectal vault raising the possibility of fecal retention/impaction. -Initial hemoglobin 8.5. Patient had large melanotic BM and dropped hemoglobin to 7.4. Received 2 units PRBC and 1 unit FFP. Ordered another 2 units PRBC on standby. Continue to monitor hemoglobin and hematocrit every 6 hours. Transfusion goal hemoglobin < 8.0 as patient has evidence of CAD on CT scan. -Initial INR therapeutic at 2.6. Reversed warfarin with vitamin K 5 mg PO x1 in ED, additional vitamin K 10 mg IV x1 and 1 unit FFP. Continue to hold warfarin. -Received Protonix 40 mg IV x1 in ED. Started and continue Protonix gtt. -Continue to monitor closely on telemetry. -Consulted general surgery, Dr. Javier, who plans to perform emergent EGD this evening. Patient is NPO. 2. Chronic atrial fibrillation on warfarin with acute RVR, present on admission. Active. -Secondary to GI bleed as above. -Patient was found to be in atrial fibrillation with RVR with heart rate in the 160s upon presentation to the ED. -Patient was recently taken off digoxin due to concern symptomatology of generalized weakness. -Received digoxin loading with 500 mcg IV x 1 in ED. Plan to give additional 250 mcg IV x1 6 hours later then start 125 mcg daily thereafter. -Initial INR therapeutic at 2.6. Reversed warfarin with vitamin K 5 mg PO x1 in ED, additional vitamin K 10 mg IV x1 and 1 unit FFP. Continue to hold warfarin. -Held home losartan and metoprolol due to hypotension from GI bleed. -Continue to monitor closely on telemetry. -Continue to treat underlying cause of GI bleed as above. 3. PMR, acute on chronic, present on admission. Active. -Patient reports he did not take his prednisone this morning. He endorses aches and pains all over with associated muscle twitching. -Received stress dose of hydrocortisone 100 mg IV x1 and then hydrocortisone 50 mg IV every 6 hours thereafter while NPO. 4. BPH, chronic, present on admission. Stable. -Held tamsulosin 0.4 mg daily due to hypotension from GI bleed as above. 5. Depression, chronic, present on admission. Stable. -Patient has depressed mood and he reports he has had suicidal thoughts in the past but has no suicide plan or intent to kill himself. The patient's driving factor for depression seems to be pain. -Recommend outpatient follow-up with PCP and consideration of antidepressant and cognitive behavioral therapy. Also may consider pain management referral. 6. History of colon cancer status post colon resection thought to be in remission. -Patient is followed by oncology in [place]. 7. History of parotid gland cancer status post parotidectomy thought to be in remission. -Patient is followed by oncology in [place]. 8. History of lung cancer status post chemo and radiation thought to be in remission. -Patient is followed by oncology in [place]. Code status: DNR/DNI DVT prophylaxis: Contraindicated 90 minutes critical care time spent Inpatient stay Patient is admitted under inpatient status with expected length of stay greater than 2 midnights due to severity of presenting symptoms, risk of adverse event, and complexity of treatment plan.
[2019-06-30 19:04] LABS: Hematocrit 28.4 % (41-53); Hemoglobin 9.6 g/dL (13.5-17.5)
[2019-06-30 19:09] LABS: INR 2.2 (0.9-1.3); Prothrombin Time 25.3 SECONDS (10.1-12.7)
[2019-06-30 19:13] LABS: BUN Creatinine Ratio 58.6 (6-22); Blood Urea Nitrogen 34 mg/dL (9-20); Calcium 7.8 mg/dL (8.4-10.2); Carbon Dioxide 22 mmol/L (22-32); Chloride 107 mmol/L (98-107); Estimated Glomerular Filt Rate > 60.0 mL/min (>60); Glucose 173 mg/dL (80-110); HEMOLYSIS < 15 (0-50); Magnesium 1.5 mg/dL (1.6-2.3); Potassium 4.5 mmol/L (3.4-5.1); Sodium 136 mmol/L (137-145)
[2019-06-30] MEDS: DIGOXIN 500 MCG/2 ML AMPUL 250 MCG IV (19:17)
[2019-06-30] MEDS: SODIUM CHLORIDE 0.9% 1,000 ML 84 ML IV (19:46)
--- NOTE | 2019-06-30 20:28 | PM.OP.ENDO ---
Operative Date/Time/Diagnoses Date of procedure: 06/30/19 Time of procedure: 20:28 Pre-op diagnosis: Gastrointestinal bleeding Post-op diagnosis: same (Suspect ischemic colitis versus Clostridium difficile colitis. Large duodenal diverticulum multiple. No blood in the upper tract.) Procedure & Clinicians Study performed: EGD. Flexible sigmoidoscopy to 30 cm. Same procedure as scheduled: Yes Indications: Determine cause of gastrointestinal bleeding. Surgeon: Smooth Javier Procedure Notes SCOAP/Timeout: Performed Procedure in detail: Patient was placed supine on his bed in the GI lab. He underwent general endotracheal anesthesia. Because of the significant bleeding hypotension and tachycardia we had just resuscitated him from the usual COVID-19 precautions were amended and such that the time from intubation to the procedure was foreshortened considerably. A bite block was inserted and scope advanced through it into the esophagus under direct vision. The esophagus was normal. The GE junction was at 43 cm. It was normal in appearance. The stomach insufflated well. It was somewhat shortened. The pyloric channel was widely patent. The duodenal bulb was pristine. As I made the turn into the 2nd part of the duodenum there was a huge diverticulum noted. A 2nd 1 was noted further down on the 2nd part of the duodenum and another was noted in the 3rd part of the duodenum. There was no blood in any of these and no evidence of recent bleeding. The scope was brought back into the stomach and retroflexed. The proximal stomach was normal in appearance. The scope was removed. Colonoscope was obtained and inserted into the anus. I immediately encountered maroon stool. We irrigated and suctioned and advanced to a level of about 30 cm from the anal verge. At this level in irrigating identified what appeared to be either pseudomembrane or evidence of colonic ischemia. I biopsied this area. I could really not get further beyond it however due to the solid column of clot. Colonic fluid mostly blood was collected to be submitted for GI panel which would include C diff testing. The scope was removed and the patient tolerated the procedure well. Scope withdrawal time: Not applicable Sedation minutes: 0 (General anesthesia necessary to protect the patient's airway and due to his critical ill nature.) Findings: colitis and diverticulosis (Of the duodenum) Specimen(s): other (Biopsies at 30 cm) Complications: none Post-procedure Recommendations: Start medication(s) (Will treat for both C diff and for ischemia. Will correct coagulopathy from warfarin) Plan for aftercare: To the ICU after recovery in the GI lab Disposition: ICU
--- NOTE | 2019-06-30 21:52 | SUR.PHASEI ---
Patient taken to room 227 in stable condition. Report given to receiving RN and patient left in room with receiving RN at bedside.
--- NOTE | 2019-06-30 22:13 | TAR.TRANSNT ---
Blood product would not scan d/t FFPT and expiration wrote in.
[2019-06-30 22:32] LABS: Adenovirus F 40/41 Not Detected (Not Detect); Astrovirus Not Detected (Not Detect); Campylobacter Not Detected (Not Detect); Clostridium difficile toxin AB Not Detected (Not Detect); Cryptosporidium Not Detected (Not Detect); Cyclospora cayetanensis Not Detected (Not Detect); Entamoeba histolytica Not Detected (Not Detect); Enteroaggregative E.coli Not Detected (Not Detect); Enteropathogenic E.coli Not Detected (Not Detect); Enterotoxigenic E.coli It/st Not Detected (Not Detect); Giardia lamblia Not Detected (Not Detect); Norovirus GI/GII Not Detected (Not Detect); Plesiomonsa shigelloides Not Detected (Not Detect); Rotavirus A Not Detected (Not Detect); Salmonella Not Detected (Not Detect); Sapovirus Not Detected (Not Detect); Shiga-like toxin-prod E.coli Not Detected (Not Detect); Shigella/Enteroinvasive E.coli Not Detected (Not Detect); Vibrio Not Detected (Not Detect); Vibrio cholerae Not Detected (Not Detect); Yersinia enterocolitica Not Detected (Not Detect)
--- NOTE | 2019-06-30 22:50 | PC.NURSE ---
LATE NOTE, PATIENT WAS ASSISTED UP TO BATHROOM ,HAD LARGE BLOODY STOOL,BECAME DIZZY,PALE, BP DROPPED INTO 60-70, HE WAS ASSISTED BACK TO BED, IN ROOM ,WE STARTED NS WIDE OPEN ,AND GOT TWO UNITS OF PRBCS TRANSFUSING WIDE OPEN,AND PATIENT BEGAN TO FEEL BETTER,1 UNIT FFP ALSO GIVEN BEFORE TAKING PT TO SURGERY. PATIENT WAS ABLE TO TALK TO STAFF THE ENTIRE TIME PRIOR TO GOING TO SURGERY. UPDATED PATIENTS , PRIOR TO LEAVING THE FLOOR. PATIENT WAS GETTING MAG.RIDER AND PROTONIX DRIP , LEFT FLOOR APPROX [id number]
--- NOTE | 2019-06-30 23:19 | PC.NURSE ---
2129- Patient arrived to room 227 from PACU. Patient is awake though groggy. Patient cleaned and new bedding and gown applied. Patient has dark stool in his chux and gown. Patient is cooperative, vitals are stable. Report rec. from [facility] at bedside. Coordinator got FFP and hung it when available. Patient in AFIB/CVR. Patient oriented to the room and advised to not get oob without assist. Patient does not have a tyler and pulled out one IV attempting to sit up to void. Stable at this time.
[2019-07-01] VITALS (18 sets, daily range): BP systolic 87–132; BP diastolic 50–71; PULSE 67–113; RESP 18–20; TEMP 30.7–36.8; O2SAT 92–100
[2019-07-01] MEDS: VANCOMYCIN 125 MG CAPSULE PO (00:01)
[2019-07-01] MEDS: CEFTRIAXONE 1 GM/50 ML FROZ.PIGGY IV ×2 (00:03→10:47)
[2019-07-01 02:05] LABS: COVID19 Sendout Not Detected (Not Detect)
[2019-07-01] MEDS: PANTOPRAZOLE 80 MG in SODIUM CHLORIDE 0.9% 100 ML 10 ML IV (04:12)
[2019-07-01] MEDS: metroNIDAZOLE 500 MG/100 ML PIGGYBACK 100 MG IV ×3 (04:38→15:40)
[2019-07-01] MEDS: MORPHINE 2 MG/ML INJ IV (05:54)
[2019-07-01 06:14] LABS: Add Manual Diff / Slide Review NO; Basophils Absolute Auto 0 /uL (0-100); Basophils Percent Auto 0.2 % (0-2); Eosinophils Absolute Auto 0 /uL (0-450); Hemoglobin 7.4 g/dL (13.5-17.5); Lymphocytes Absolute Auto 500 /uL (1100-4500); Lymphocytes Percent Auto 6.1 % (25-40); Mean Corpuscular HGB Conc 34.4 % (30-36); Mean Corpuscular Hemoglobin 31.7 PG (26-34); Mean Corpuscular Volume 91.9 fL (80-100); Monocytes Absolute Auto 300 /uL (0-900); Neutrophils Absolute Auto 7800 /uL (1500-7000); Neutrophils Percent Auto 90.7 % (50-75); Platelet Count 158 X10^3/uL (150-400); Red Blood Cell Count 2.35 X10^6/uL (4.5-5.9); Red Cell Distribution Width 16.1 % (11.6-14.8); White Blood Cell Count 8.6 X10^3/uL (4.5-11.0)
[2019-07-01] MEDS: SODIUM CHLORIDE 0.9% 500 ML 1000 ML IV (06:15)
[2019-07-01 06:17] LABS: INR 1.4 (0.9-1.3); Prothrombin Time 16.2 SECONDS (10.1-12.7)
[2019-07-01 06:22] LABS: Alanine Aminotransferase 11 IU/L (<50); Albumin 2.1 g/dL (3.5-5.0); Alkaline Phosphatase 28 U/L (38-126); Aspartate Aminotransferase 18 IU/L (17-59); BUN Creatinine Ratio 52.7 (6-22); Bilirubin Total 1.6 mg/dL (0.2-1.3); Blood Urea Nitrogen 29 mg/dL (9-20); Calcium 7.5 mg/dL (8.4-10.2); Carbon Dioxide 25 mmol/L (22-32); Chloride 109 mmol/L (98-107); Estimated Glomerular Filt Rate > 60.0 mL/min (>60); Globulin 2.1 g/dL (1.7-4.1); Glucose 151 mg/dL (80-110); HEMOLYSIS < 15 (0-50); Hematocrit 21.6 % (41-53); Potassium 4.2 mmol/L (3.4-5.1); Sodium 136 mmol/L (137-145); Total Protein 4.2 g/dL (6.3-8.2)
--- NOTE | 2019-07-01 06:24 | PC.NURSE ---
Addendum entered by Lucille Love R.N. 07/01/19 06:29: Pt has not had a stool this shift, Urine slightly pink in color at 0615 Original Note: NOC NOTE: Pt completed FFP this shift and received 1untit of PRBC this shift, ABX given in between the blood products. At 0605 reported a cramping ABD pain of 6/10, IVP morhine given. At 0615 Pt requested to sit at side of bed and use the urinal, he became lightheaded and was put back to bed. BP check at this time was 87/50 map of 64. CLARISSA Kapoor notified and ordered 500cc bolus, repeat if SBP is below 100. H&H 7.4 and 21.6 this morning.
[2019-07-01] MEDS: HYDROCORTISONE 100 MG/2 ML VIAL 50 MG IV ×2 (08:57→15:42)
--- NOTE | 2019-07-01 10:33 | P.DS_ITS ---
History of Present Illness History of Present Illness Date Patient Seen: 06/30/19 Chief complaint: GI bleed, generalized weakness, falls Narrative: Written by myself Dr. Nelson: Alex Galan is an 84-year-old male with a past medical history significant for CAD, hypertension, hyperlipidemia, ascending aortic aneurysm, chronic atrial fibrillation on warfarin, BPH, colon cancer status post colon resection, parotid gland cancer status post parotidectomy, TIA, and polymyalgia rheumatica on prednisone who presented to the ED from PCP's office due to progressive worsening generalized weakness, multiple falls, and GI bleed. Upon entry to the room, the patient was on the toilet and was having symptomatic GI bleeding with lightheadedness. Multiple nursing staff moved patient to bed and he had a presyncopal episode in which he was briefly unresponsive and is eyes rolled into the back of his head. A rapid response was called. His systolic blood pressure was 69 mmHg and he was in atrial fibrillation with RVR with heart rate in te 160 to 180's. He was placed in Trendelenburg and given a normal saline bolus wide open until the 2 units of PRBCs on standby were brought up from blood bank. He is on warfarin and received another dose of vitamin K 10 mg IV x1 (previously received vitamin K 5 mg PO x 1 in ED) and he was started on a Protonix gtt (received Protonix 40 mg IV x1 in ED). His blood pressure improved with SBP 120s and heart rate 80-100 bpm. General surgery, Dr. Javier, was contacted and the patient was prepared to go to OR for upper endoscopy. The patient reports he has had multiple falls over the last 5 days with injury to his head several days ago. CT brain without contrast did not demonstrate any acute intracranial abnormalities. The patient reports he aches all over and he did not take his prednisone this morning. He received a stress dose of hydrocortisone 100 mg IV x1. He endorses generalized weakness, fatigue, and lightheadedness. He denies any shortness of breath, chest pain/pressure, nausea or vomiting. He complains of epigastric and mid abdominal pain that radiates to low abdomen over the last 1 week. The patient has had melanotic stool with occasional bright red blood per rectum. The patient was recently taken off of digoxin by his PCP due to concern for digoxin driven generalized weakness. The patient was found to be in atrial fibrillation with RVR in the ED and he was loaded with digoxin. The patient is admitted inpatient to intensive care unit for symptomatic GI bleed. Discharge Providers Provider Date of admission: 06/30/19 15:01 Discharge Date: 07/01/19 Primary care physician: Leif Healy MD Consults: 06/30/19 21:57 Consult to Discharge Planning Routine Comment: Discharge provider: Evelyn Nelson DO Summary Hospital Course Discharge Diagnosis: 1. Acute symptomatic GI bleed with acute blood loss anemia, generalized weakness and hypotension, present on admission. Active. 2. Chronic atrial fibrillation on warfarin with acute RVR, present on admission. Active. 3. PMR, acute on chronic, present on admission. Active. 4. BPH, chronic, present on admission. Stable. 5. Depression, chronic, present on admission. Stable. 6. History of colon cancer status post colon resection thought to be in remission. 7. History of parotid gland cancer status post parotidectomy thought to be in remission. 8. History of lung cancer status post chemo and radiation thought to be in remission. Hospital Course: Alex Galan is an 84-year-old male with a past medical history significant for CAD, hypertension, hyperlipidemia, ascending aortic aneurysm, chronic atrial fibrillation on warfarin, BPH, colon cancer status post colon resection, parotid gland cancer status post parotidectomy, TIA, and polymyalgia rheumatica on prednisone who presented to the ED from PCP's office due to progressive worsening generalized weakness, multiple falls, and GI bleed. 1. Acute symptomatic GI bleed with acute blood loss anemia, generalized weakness and hypotension, present on admission. Active. -Patient presented with generalized weakness and fatigue x1 week with associated melena and occasional hematochezia. -CT abdomen and pelvis with contrast did not demonstrate any acute abnormalities. Note is made of CAD, aneurysmal enlargement of ascending t horacic aorta, and large amount of stool within the rectal vault raising the possibility of fecal retention/impaction. -Initial hemoglobin 8.5. Patient had large melanotic BM and dropped hemoglobin to 7.4. Received 3 units PRBC and 1 unit FFP with improvement in hemoglobin to 9.6. Patient's hemoglobin dropped to 7.4 with morning labs and he had recurrent atrial fibrillation with RVR heart rate 120-140s this morning with mild hypotension SBP 90s and received 1 additional unit PRBC with improvement of SBP to 130s and heart rate to 90s. Continued to monitor hemoglobin and hematocrit every 6 hours. Transfusion goal hemoglobin < 8.0 as patient has evidence of CAD on CT scan. -Initial INR therapeutic at 2.6. Reversed warfarin with vitamin K 5 mg PO x1 in ED, additional vitamin K 10 mg IV x1 and 1 unit FFP. Continued to hold warfarin. INR now 1.4. -Received Protonix 40 mg IV x1 in ED. Started and continued Protonix gtt. -Continued to monitor vital signs and telemetry closely. -Consulted general surgery, Dr. Javier, who performed emergent EGD and flexible sigmoidoscopy without evidence of upper GI bleed or stigmata of bleeding with several large diverticulum of duodenum (could potentially be source of bleed although no evidence visualize) and flexible sigmoidoscopy with black/maroon liquid stool and large clot permitting further evaluation of colon without source of bleeding identified. -Patient on clear liquid diet. 2. Chronic atrial fibrillation on warfarin with acute RVR, present on admission. Active. -Secondary to GI bleed as above. -Patient was found to be in atrial fibrillation with RVR with heart rate in the 160s upon presentation to the ED. -Patient was recently taken off digoxin due to concern for contributing to generalized weakness. -Received digoxin loading with 500 mcg IV x 1 in ED and 250 mcg IV x1 6 hours later then started and continued digoxin 125 mcg daily. Recommend digoxin level and 3-4 days. -Initial INR therapeutic at 2.6. Reversed warfarin with vitamin K 5 mg PO x1 in ED, additional vitamin K 10 mg IV x1 and 1 unit FFP. Continued to hold warfarin. INR now 1.4. -Held home losartan and metoprolol due to hypotension from GI bleed. -Continued to monitor closely on telemetry. -Continued to treat underlying cause of GI bleed as above. 3. PMR, acute on chronic, present on admission. Active. -Patient reports he did not take his prednisone on the morning of admission. He endorses aches and pains all over with associated muscle twitching. -Received stress dose of hydrocortisone 100 mg IV x1 and continued hydrocortisone 50 mg IV every 6 hours. 4. BPH, chronic, present on admission. Stable. -Iniitally held tamsulosin 0.4 mg daily due to hypotension from GI bleed as above. Restarted and continued tamsulosin 0.4 mg daily. 5. Depression, chronic, present on admission. Stable. -Patient has depressed mood and he reports he has had suicidal thoughts in the past but has no suicide plan or intent to kill himself. The patient's driving factor for depression seems to be uncontrolled pain. -Recommend outpatient follow-up with PCP and consideration of antidepressant and cognitive behavioral therapy. Also may consider pain management referral. 6. History of colon cancer status post colon resection thought to be in remiss ion. -Patient is followed by oncology in [place]. 7. History of parotid gland cancer status post parotidectomy thought to be in remission. -Patient is followed by oncology in [place]. 8. History of lung cancer status post chemo and radiation thought to be in remission. -Patient is followed by oncology in [place]. Exam Vital Signs (past 8 hours): - 07/01/19 04:40 07/01/19 04:43 07/01/19 06:15 Temperature 98.2 F 98.2 F Pulse Rate 81 81 94 H Respiratory Rate 18 18 20 Blood Pressure 112/71 112/71 87/50 L Pulse Oximetry 99 07/01/19 06:46 07/01/19 06:58 07/01/19 07:10 Temperature 97.6 F 87.2 F L 97.0 F L Pulse Rate 92 H 87 92 H Respiratory Rate 18 18 18 Blood Pressure 91/60 93/53 L 89/54 L Pulse Oximetry 100 07/01/19 08:00 07/01/19 08:48 07/01/19 09:12 Temperature 97.2 F L 97.1 F L 97.5 F L Pulse Rate 79 83 86 Respiratory Rate 18 18 18 Blood Pressure 96/58 L 132/57 L 107/55 L Pulse Oximetry 100 97 100 07/01/19 09:28 Temperature 97.5 F L Pulse Rate 86 Respiratory Rate 18 Blood Pressure 107/55 L Pulse Oximetry Oxygen Delivery Method Room Air Oxygen Flow Rate 0 Narrative Exam Narrative: General: Elderly pale gentleman lying in bed comfortably, in no acute distress, depressed with slight emotional lability but otherwise appropriately interactive. HEENT: Normocephalic, atraumatic. External ears without defect. Pupils equal, round, and reactive to light. Pale conjunctiva. No lid lag. Oropharynx free of erythema and cobble stoning with moist mucosa. Neck: Supple with full range of motion. No jugular venous distension. No lymphadenopathy or thyromegaly. Cardiovascular: Irregularly irregular, normal rate, without murmurs, rubs, or gallops appreciated. Pulmonary: Clear to auscultation bilaterally without crackles, wheezes, or rhonchi. Normal respiratory effort with no use of accessory muscles. Abdomen: Soft, scaphoid, bowel sounds present, nontender, nondistended. Small palpable pulsatile mass in mid abdomen. No hepatosplenomegaly appreciated. Extremities: No clubbing or cyanosis. Mild bipedal edema. Skin: Normal temperature, turgor, and texture; no rash, ulcers, or subcutaneous nodules appreciated. Neurological: Cranial nerves grossly intact. Psychiatric: Depressed mood and affect. Slight emotional lability. Alert and oriented to person, place, and time. Patient reports has had suicidal thoughts in the past but has no suicide plan or intent to kill himself. Objective Labs Result Diagrams: 07/01/19 06:00 07/01/19 06:00 Labs: Laboratory Results - last 24 hr 06/30/19 06/30/19 06/30/19 12:15 12:15 12:15 WBC 8.0 RBC 2.58 L Hgb 8.5 L Hct 25.6 L MCV 99.1 MCH 33.0 MCHC 33.4 RDW 13.6 Plt Count 250 Neut % (Auto) 83.9 H Lymph % (Auto) 9.7 L [place] % (Auto) 5.6 Eos % (Auto) 0.3 L Baso % (Auto) 0.5 Neut # (Auto) 6700 Lymph # (Auto) 800 L [place] # (Auto) 400 Eos # (Auto) 0 Baso # (Auto) 0 PT 29.6 H INR 2.6 H APTT 35 Sodium 136 L Potassium 3.9 Chloride 104 Carbon Dioxide 25 BUN 37 H Creatinine 0.63 L Estimated GFR > 60.0 BUN/Creatinine Ratio 58.7 H Glucose 135 H Lactate Calcium 8.7 Magnesium Total Bilirubin 0.6 AST 22 ALT 14 Alkaline Phosphatase 49 Total Creatine Kinase 36 L CK-MB (CK-2) TNP CK-MB (CK-2) Rel Index TNP Troponin I < 0.012 NT-Pro-B Natriuret Pep 720 H Total Protein 5.8 L Albumin 3.2 L Globulin 2.6 Albumin/Globulin Ratio 1.2 TSH Urine RBC Urine WBC Ur Squamous Epith Cells Amorphous Sediment Urine Bacteria Urine Mucus Ur Culture Indicated? Nasal Screen MRSA (PCR) Stl C. cayetanensis PCR Stool Rotavirus (PCR) Stool Adenovirus (PCR) Stool Astrovirus (PCR) Stool Cryptosporidium PCR Stl E.coli Shiga Tox PCR St Sh/Enteroin Ecoli PCR Stool E coli O157 PCR Stl Enterotoxigenic E PCR Stool EPEC (PCR) Stl E. histolytica PCR Stool Giardia Lamblia PCR Stool Sapovirus (PCR) Stl P. shigelloides PCR St Y.enterocolitica PCR Stool Vibrio (PCR) Stl Vibrio cholerae PCR Stl Enteroaggr Ecoli PCR Stl Norovirus GI/GII PCR Digoxin Campylobacter (PCR) C. difficile Tox (PCR) COVID-19 PCR Salmonella (PCR) Blood Type Antibody Screen Crossmatch 06/30/19 06/30/19 06/30/19 12:15 12:15 12:15 WBC RBC Hgb Hct MCV MCH MCHC RDW Plt Count Neut % (Auto) Lymph % (Auto) [place] % (Auto) Eos % (Auto) Baso % (Auto) Neut # (Auto) Lymph # (Auto) [place] # (Auto) Eos # (Auto) Baso # (Auto) PT INR APTT Sodium Potassium Chloride Carbon Dioxide BUN Creatinine Estimated GFR BUN/Creatinine Ratio Glucose Lactate 3.2 H Calcium Magnesium Total Bilirubin AST ALT Alkaline Phosphatase Total Creatine Kinase CK-MB (CK-2) CK-MB (CK-2) Rel Index Troponin I NT-Pro-B Natriuret Pep Total Protein Albumin Globulin Albumin/Globulin Ratio TSH Urine RBC Urine WBC Ur Squamous Epith Cells Amorphous Sediment Urine Bacteria Urine Mucus Ur Culture Indicated? Nasal Screen MRSA (PCR) Stl C. cayetanensis PCR Stool Rotavirus (PCR) Stool Adenovirus (PCR) Stool Astrovirus (PCR) Stool Cryptosporidium PCR Stl E.coli Shiga Tox PCR St Sh/Enteroin Ecoli PCR Stool E coli O157 PCR Stl Enterotoxigenic E PCR Stool EPEC (PCR) Stl E. histolytica PCR Stool Giardia Lamblia PCR Stool Sapovirus (PCR) Stl P. shigelloides PCR St Y.enterocolitica PCR Stool Vibrio (PCR) Stl Vibrio cholerae PCR Stl Enteroaggr Ecoli PCR Stl Norovirus GI/GII PCR Digoxin < 0.4 L Campylobacter (PCR) C. difficile Tox (PCR) COVID-19 PCR Salmonella (PCR) Blood Type A Positive Antibody Screen Negative Crossmatch See Detail 06/30/19 06/30/19 06/30/19 12:15 12:15 14:13 WBC RBC Hgb Hct MCV MCH MCHC RDW Plt Count Neut % (Auto) Lymph % (Auto) [place] % (Auto) Eos % (Auto) Baso % (Auto) Neut # (Auto) Lymph # (Auto) [place] # (Auto) Eos # (Auto) Baso # (Auto) PT INR APTT Sodium Potassium Chloride Carbon Dioxide BUN Creatinine Estimated GFR BUN/Creatinine Ratio Glucose Lactate Calcium Magnesium 1.7 Total Bilirubin AST ALT Alkaline Phosphatase Total Creatine Kinase CK-MB (CK-2) CK-MB (CK-2) Rel Index Troponin I NT-Pro-B Natriuret Pep Total Protein Albumin Globulin Albumin/Globulin Ratio TSH 1.61 Urine RBC None seen Urine WBC 1-5/hpf Ur Squamous Epith Cells 0-1 /hpf Amorphous Sediment 1+ Urine Bacteria None seen Urine Mucus 1+ H Ur Culture Indicated? Specimen cultured Nasal Screen MRSA (PCR) Stl C. cayetanensis PCR Stool Rotavirus (PCR) Stool Adenovirus (PCR) Stool Astrovirus (PCR) Stool Cryptosporidium PCR Stl E.coli Shiga Tox PCR St Sh/Enteroin Ecoli PCR Stool E coli O157 PCR Stl Enterotoxigenic E PCR Stool EPEC (PCR) Stl E. histolytica PCR Stool Giardia Lamblia PCR Stool Sapovirus (PCR) Stl P. shigelloides PCR St Y.enterocolitica PCR Stool Vibrio (PCR) Stl Vibrio cholerae PCR Stl Enteroaggr Ecoli PCR Stl Norovirus GI/GII PCR Digoxin Campylobacter (PCR) C. difficile Tox (PCR) COVID-19 PCR Salmonella (PCR) Blood Type Antibody Screen Crossmatch 06/30/19 06/30/19 06/30/19 14:40 15:30 18:05 WBC RBC Hgb 7.4 L Hct 22.4 L MCV MCH MCHC RDW Plt Count Neut % (Auto) Lymph % (Auto) [place] % (Auto) Eos % (Auto) Baso % (Auto) Neut # (Auto) Lymph # (Auto) [place] # (Auto) Eos # (Auto) Baso # (Auto) PT INR APTT Sodium Potassium Chloride Carbon Dioxide BUN Creatinine Estimated GFR BUN/Creatinine Ratio Glucose Lactate 1.4 Calcium Magnesium Total Bilirubin AST ALT Alkaline Phosphatase Total Creatine Kinase CK-MB (CK-2) CK-MB (CK-2) Rel Index Troponin I NT-Pro-B Natriuret Pep Total Protein Albumin Globulin Albumin/Globulin Ratio TSH Urine RBC Urine WBC Ur Squamous Epith Cells Amorphous Sediment Urine Bacteria Urine Mucus Ur Culture Indicated? Nasal Screen MRSA (PCR) Stl C. cayetanensis PCR Stool Rotavirus (PCR) Stool Adenovirus (PCR) Stool Astrovirus (PCR) Stool Cryptosporidium PCR Stl E.coli Shiga Tox PCR St Sh/Enteroin Ecoli PCR Stool E coli O157 PCR Stl Enterotoxigenic E PCR Stool EPEC (PCR) Stl E. histolytica PCR Stool Giardia Lamblia PCR Stool Sapovirus (PCR) Stl P. shigelloides PCR St Y.enterocolitica PCR Stool Vibrio (PCR) Stl Vibrio cholerae PCR Stl Enteroaggr Ecoli PCR Stl Norovirus GI/GII PCR Digoxin Campylobacter (PCR) C. difficile Tox (PCR) COVID-19 PCR Not detected Salmonella (PCR) Blood Type Antibody Screen Crossmatch 06/30/19 06/30/19 06/30/19 18:58 18:58 18:58 WBC RBC Hgb 9.6 L Hct 28.4 L MCV MCH MCHC RDW Plt Count Neut % (Auto) Lymph % (Auto) [place] % (Auto) Eos % (Auto) Baso % (Auto) Neut # (Auto) Lymph # (Auto) [place] # (Auto) Eos # (Auto) Baso # (Auto) PT 25.3 H INR 2.2 H APTT Sodium 136 L Potassium 4.5 Chloride 107 Carbon Dioxide 22 BUN 34 H Creatinine 0.58 L Estimated GFR > 60.0 BUN/Creatinine Ratio 58.6 H Glucose 173 H Lactate Calcium 7.8 L Magnesium 1.5 L Total Bilirubin AST ALT Alkaline Phosphatase Total Creatine Kinase CK-MB (CK-2) CK-MB (CK-2) Rel Index Troponin I NT-Pro-B Natriuret Pep Total Protein Albumin Globulin Albumin/Globulin Ratio TSH Urine RBC Urine WBC Ur Squamous Epith Cells Amorphous Sediment Urine Bacteria Urine Mucus Ur Culture Indicated? Nasal Screen MRSA (PCR) Stl C. cayetanensis PCR Stool Rotavirus (PCR) Stool Adenovirus (PCR) Stool Astrovirus (PCR) Stool Cryptosporidium PCR Stl E.coli Shiga Tox PCR St Sh/Enteroin Ecoli PCR Stool E coli O157 PCR Stl Enterotoxigenic E PCR Stool EPEC (PCR) Stl E. histolytica PCR Stool Giardia Lamblia PCR Stool Sapovirus (PCR) Stl P. shigelloides PCR St Y.enterocolitica PCR Stool Vibrio (PCR) Stl Vibrio cholerae PCR Stl Enteroaggr Ecoli PCR Stl Norovirus GI/GII PCR Digoxin Campylobacter (PCR) C. difficile Tox (PCR) COVID-19 PCR Salmonella (PCR) Blood Type Antibody Screen Crossmatch 06/30/19 06/30/19 07/01/19 20:10 22:56 06:00 WBC RBC Hgb Hct MCV MCH MCHC RDW Plt Count Neut % (Auto) Lymph % (Auto) [place] % (Auto) Eos % (Auto) Baso % (Auto) Neut # (Auto) Lymph # (Auto) [place] # (Auto) Eos # (Auto) Baso # (Auto) PT 16.2 H D INR 1.4 H APTT Sodium Potassium Chloride Carbon Dioxide BUN Creatinine Estimated GFR BUN/Creatinine Ratio Glucose Lactate Calcium Magnesium Total Bilirubin AST ALT Alkaline Phosphatase Total Creatine Kinase CK-MB (CK-2) CK-MB (CK-2) Rel Index Troponin I NT-Pro-B Natriuret Pep Total Protein Albumin Globulin Albumin/Globulin Ratio TSH Urine RBC Urine WBC Ur Squamous Epith Cells Amorphous Sediment Urine Bacteria Urine Mucus Ur Culture Indicated? Nasal Screen MRSA (PCR) Negative for mrsa Stl C. cayetanensis PCR Not detected Stool Rotavirus (PCR) Not detected Stool Adenovirus (PCR) Not detected Stool Astrovirus (PCR) Not detected Stool Cryptosporidium PCR Not detected Stl E.coli Shiga Tox PCR Not detected St Sh/Enteroin Ecoli PCR Not detected Stool E coli O157 PCR Not Reportable Stl Enterotoxigenic E PCR Not detected Stool EPEC (PCR) Not detected Stl E. histolytica PCR Not detected Stool Giardia Lamblia PCR Not detected Stool Sapovirus (PCR) Not detected Stl P. shigelloides PCR Not detected St Y.enterocolitica PCR Not detected Stool Vibrio (PCR) Not detected Stl Vibrio cholerae PCR Not detected Stl Enteroaggr Ecoli PCR Not detected Stl Norovirus GI/GII PCR Not detected Digoxin Campylobacter (PCR) Not detected C. difficile Tox (PCR) Not detected COVID-19 PCR Salmonella (PCR) Not detected Blood Type Antibody Screen Crossmatch 07/01/19 07/01/19 06:00 06:00 WBC 8.6 RBC 2.35 L Hgb 7.4 L Hct 21.6 L MCV 91.9 D MCH 31.7 MCHC 34.4 RDW 16.1 H Plt Count 158 Neut % (Auto) 90.7 H Lymph % (Auto) 6.1 L [place] % (Auto) 3.0 Eos % (Auto) 0.0 L Baso % (Auto) 0.2 Neut # (Auto) 7800 H Lymph # (Auto) 500 L [place] # (Auto) 300 Eos # (Auto) 0 Baso # (Auto) 0 PT INR APTT Sodium 136 L Potassium 4.2 Chloride 109 H Carbon Dioxide 25 BUN 29 H Creatinine 0.55 L Estimated GFR > 60.0 BUN/Creatinine Ratio 52.7 H Glucose 151 H Lactate Calcium 7.5 L Magnesium 2.0 Total Bilirubin 1.6 H AST 18 ALT 11 Alkaline Phosphatase 28 L Total Creatine Kinase CK-MB (CK-2) CK-MB (CK-2) Rel Index Troponin I NT-Pro-B Natriuret Pep Total Protein 4.2 L Albumin 2.1 L Globulin 2.1 Albumin/Globulin Ratio 1.0 TSH Urine RBC Urine WBC Ur Squamous Epith Cells Amorphous Sediment Urine Bacteria Urine Mucus Ur Culture Indicated? Nasal Screen MRSA (PCR) Stl C. cayetanensis PCR Stool Rotavirus (PCR) Stool Adenovirus (PCR) Stool Astrovirus (PCR) Stool Cryptosporidium PCR Stl E.coli Shiga Tox PCR St Sh/Enteroin Ecoli PCR Stool E coli O157 PCR Stl Enterotoxigenic E PCR Stool EPEC (PCR) Stl E. histolytica PCR Stool Giardia Lamblia PCR Stool Sapovirus (PCR) Stl P. shigelloides PCR St Y.enterocolitica PCR Stool Vibrio (PCR) Stl Vibrio cholerae PCR Stl Enteroaggr Ecoli PCR Stl Norovirus GI/GII PCR Digoxin Campylobacter (PCR) C. difficile Tox (PCR) COVID-19 PCR Salmonella (PCR) Blood Type Antibody Screen Crossmatch Discharge Plan Discharge Plan [facility] Under care of provider: Dr. Oneil, hospitalist Diet/Activity/Treatments Diet: Clear Liquid Activity: Bedrest Discharge Data Primary Care Provider: Leif Healy Attending Provider: Evelyn Nelson Admit Date/Time: 06/30/19 15:01
[2019-07-01] MEDS: DIGOXIN 0.125 MG TABLET PO (10:50)
--- NOTE | 2019-07-01 11:37 | P.PN_ITS ---
Subjective Subjective Date Patient Seen: 07/01/19 Time Patient Seen: 11:37 Interval history: The patient denies any further bloody bowel movements overnight. He denies abdominal pain. He c/o discolored urine, but can not remember when he last voided. Exam Vital Signs (past 8 hours): - 07/01/19 04:40 07/01/19 04:43 07/01/19 06:15 Temperature 98.2 F 98.2 F Pulse Rate 81 81 94 H Respiratory Rate 18 18 20 Blood Pressure 112/71 112/71 87/50 L Pulse Oximetry 99 07/01/19 06:46 07/01/19 06:58 07/01/19 07:10 Temperature 97.6 F 87.2 F L 97.0 F L Pulse Rate 92 H 87 92 H Respiratory Rate 18 18 18 Blood Pressure 91/60 93/53 L 89/54 L Pulse Oximetry 100 07/01/19 08:00 07/01/19 08:48 07/01/19 09:12 Temperature 97.2 F L 97.1 F L 97.5 F L Pulse Rate 79 83 86 Respiratory Rate 18 18 18 Blood Pressure 96/58 L 132/57 L 107/55 L Pulse Oximetry 100 97 100 07/01/19 09:28 Temperature 97.5 F L Pulse Rate 86 Respiratory Rate 18 Blood Pressure 107/55 L Pulse Oximetry Oxygen Delivery Method Room Air Oxygen Flow Rate 0 Narrative Exam Narrative: GENERAL: Alert, comfortable, pale. Appears stated age. Answers questions promptly. Appears moderately confused. Vital signs noted. HENT: Normocephalic, atraumatic. Hearing intact. Oral mucosa is pink and moist. EYES: Conjunctiva pink, sclera white, no periorbital swelling. CARDIOVASCULAR: Irregularly irregular RESPIRATORY: Non-tachypneic, breathing comfortably on room air. GASTROINTESTINAL: Abdomen soft and non-distended; non tender; no palpable masses GENITALURINARY: No flank tenderness. MUSCULOSKELETAL: Equal tone and mass bilaterally. SKIN: Warm, dry, soft, pale, otherwise appropriate color for ethnicity. No other lesions, rashes, or wounds. NEURO: Oriented to self; some confusion c/w mild to moderate dementia. No gross sensory deficits. PSYCH: Flattened affect and depressed mood. Objective Labs Result Diagrams: 07/01/19 06:00 07/01/19 06:00 Labs: Laboratory Results - last 24 hr 06/30/19 06/30/19 06/30/19 12:15 12:15 12:15 WBC 8.0 RBC 2.58 L Hgb 8.5 L Hct 25.6 L MCV 99.1 MCH 33.0 MCHC 33.4 RDW 13.6 Plt Count 250 Neut % (Auto) 83.9 H Lymph % (Auto) 9.7 L Anderson % (Auto) 5.6 Eos % (Auto) 0.3 L Baso % (Auto) 0.5 Neut # (Auto) 6700 Lymph # (Auto) 800 L Anderson # (Auto) 400 Eos # (Auto) 0 Baso # (Auto) 0 PT 29.6 H INR 2.6 H APTT 35 Sodium 136 L Potassium 3.9 Chloride 104 Carbon Dioxide 25 BUN 37 H Creatinine 0.63 L Estimated GFR > 60.0 BUN/Creatinine Ratio 58.7 H Glucose 135 H Lactate Calcium 8.7 Magnesium Total Bilirubin 0.6 AST 22 ALT 14 Alkaline Phosphatase 49 Total Creatine Kinase 36 L CK-MB (CK-2) TNP CK-MB (CK-2) Rel Index TNP Troponin I < 0.012 NT-Pro-B Natriuret Pep 720 H Total Protein 5.8 L Albumin 3.2 L Globulin 2.6 Albumin/Globulin Ratio 1.2 TSH Urine RBC Urine WBC Ur Squamous Epith Cells Amorphous Sediment Urine Bacteria Urine Mucus Ur Culture Indicated? Nasal Screen MRSA (PCR) Stl C. cayetanensis PCR Stool Rotavirus (PCR) Stool Adenovirus (PCR) Stool Astrovirus (PCR) Stool Cryptosporidium PCR Stl E.coli Shiga Tox PCR St Sh/Enteroin Ecoli PCR Stool E coli O157 PCR Stl Enterotoxigenic E PCR Stool EPEC (PCR) Stl E. histolytica PCR Stool Giardia Lamblia PCR Stool Sapovirus (PCR) Stl P. shigelloides PCR St Y.enterocolitica PCR Stool Vibrio (PCR) Stl Vibrio cholerae PCR Stl Enteroaggr Ecoli PCR Stl Norovirus GI/GII PCR Digoxin Campylobacter (PCR) C. difficile Tox (PCR) COVID-19 PCR Salmonella (PCR) Blood Type Antibody Screen Crossmatch 06/30/19 06/30/19 06/30/19 12:15 12:15 12:15 WBC RBC Hgb Hct MCV MCH MCHC RDW Plt Count Neut % (Auto) Lymph % (Auto) Anderson % (Auto) Eos % (Auto) Baso % (Auto) Neut # (Auto) Lymph # (Auto) Anderson # (Auto) Eos # (Auto) Baso # (Auto) PT INR APTT Sodium Potassium Chloride Carbon Dioxide BUN Creatinine Estimated GFR BUN/Creatinine Ratio Glucose Lactate 3.2 H Calcium Magnesium Total Bilirubin AST ALT Alkaline Phosphatase Total Creatine Kinase CK-MB (CK-2) CK-MB (CK-2) Rel Index Troponin I NT-Pro-B Natriuret Pep Total Protein Albumin Globulin Albumin/Globulin Ratio TSH Urine RBC Urine WBC Ur Squamous Epith Cells Amorphous Sediment Urine Bacteria Urine Mucus Ur Culture Indicated? Nasal Screen MRSA (PCR) Stl C. cayetanensis PCR Stool Rotavirus (PCR) Stool Adenovirus (PCR) Stool Astrovirus (PCR) Stool Cryptosporidium PCR Stl E.coli Shiga Tox PCR St Sh/Enteroin Ecoli PCR Stool E coli O157 PCR Stl Enterotoxigenic E PCR Stool EPEC (PCR) Stl E. histolytica PCR Stool Giardia Lamblia PCR Stool Sapovirus (PCR) Stl P. shigelloides PCR St Y.enterocolitica PCR Stool Vibrio (PCR) Stl Vibrio cholerae PCR Stl Enteroaggr Ecoli PCR Stl Norovirus GI/GII PCR Digoxin < 0.4 L Campylobacter (PCR) C. difficile Tox (PCR) COVID-19 PCR Salmonella (PCR) Blood Type A Positive Antibody Screen Negative Crossmatch See Detail 06/30/19 06/30/19 06/30/19 12:15 12:15 14:13 WBC RBC Hgb Hct MCV MCH MCHC RDW Plt Count Neut % (Auto) Lymph % (Auto) Anderson % (Auto) Eos % (Auto) Baso % (Auto) Neut # (Auto) Lymph # (Auto) Anderson # (Auto) Eos # (Auto) Baso # (Auto) PT INR APTT Sodium Potassium Chloride Carbon Dioxide BUN Creatinine Estimated GFR BUN/Creatinine Ratio Glucose Lactate Calcium Magnesium 1.7 Total Bilirubin AST ALT Alkaline Phosphatase Total Creatine Kinase CK-MB (CK-2) CK-MB (CK-2) Rel Index Troponin I NT-Pro-B Natriuret Pep Total Protein Albumin Globulin Albumin/Globulin Ratio TSH 1.61 Urine RBC None seen Urine WBC 1-5/hpf Ur Squamous Epith Cells 0-1 /hpf Amorphous Sediment 1+ Urine Bacteria None seen Urine Mucus 1+ H Ur Culture Indicated? Specimen cultured Nasal Screen MRSA (PCR) Stl C. cayetanensis PCR Stool Rotavirus (PCR) Stool Adenovirus (PCR) Stool Astrovirus (PCR) Stool Cryptosporidium PCR Stl E.coli Shiga Tox PCR St Sh/Enteroin Ecoli PCR Stool E coli O157 PCR Stl Enterotoxigenic E PCR Stool EPEC (PCR) Stl E. histolytica PCR Stool Giardia Lamblia PCR Stool Sapovirus (PCR) Stl P. shigelloides PCR St Y.enterocolitica PCR Stool Vibrio (PCR) Stl Vibrio cholerae PCR Stl Enteroaggr Ecoli PCR Stl Norovirus GI/GII PCR Digoxin Campylobacter (PCR) C. difficile Tox (PCR) COVID-19 PCR Salmonella (PCR) Blood Type Antibody Screen Crossmatch 06/30/19 06/30/19 06/30/19 14:40 15:30 18:05 WBC RBC Hgb 7.4 L Hct 22.4 L MCV MCH MCHC RDW Plt Count Neut % (Auto) Lymph % (Auto) Anderson % (Auto) Eos % (Auto) Baso % (Auto) Neut # (Auto) Lymph # (Auto) Anderson # (Auto) Eos # (Auto) Baso # (Auto) PT INR APTT Sodium Potassium Chloride Carbon Dioxide BUN Creatinine Estimated GFR BUN/Creatinine Ratio Glucose Lactate 1.4 Calcium Magnesium Total Bilirubin AST ALT Alkaline Phosphatase Total Creatine Kinase CK-MB (CK-2) CK-MB (CK-2) Rel Index Troponin I NT-Pro-B Natriuret Pep Total Protein Albumin Globulin Albumin/Globulin Ratio TSH Urine RBC Urine WBC Ur Squamous Epith Cells Amorphous Sediment Urine Bacteria Urine Mucus Ur Culture Indicated? Nasal Screen MRSA (PCR) Stl C. cayetanensis PCR Stool Rotavirus (PCR) Stool Adenovirus (PCR) Stool Astrovirus (PCR) Stool Cryptosporidium PCR Stl E.coli Shiga Tox PCR St Sh/Enteroin Ecoli PCR Stool E coli O157 PCR Stl Enterotoxigenic E PCR Stool EPEC (PCR) Stl E. histolytica PCR Stool Giardia Lamblia PCR Stool Sapovirus (PCR) Stl P. shigelloides PCR St Y.enterocolitica PCR Stool Vibrio (PCR) Stl Vibrio cholerae PCR Stl Enteroaggr Ecoli PCR Stl Norovirus GI/GII PCR Digoxin Campylobacter (PCR) C. difficile Tox (PCR) COVID-19 PCR Not detected Salmonella (PCR) Blood Type Antibody Screen Crossmatch 06/30/19 06/30/19 06/30/19 18:58 18:58 18:58 WBC RBC Hgb 9.6 L Hct 28.4 L MCV MCH MCHC RDW Plt Count Neut % (Auto) Lymph % (Auto) Anderson % (Auto) Eos % (Auto) Baso % (Auto) Neut # (Auto) Lymph # (Auto) Anderson # (Auto) Eos # (Auto) Baso # (Auto) PT 25.3 H INR 2.2 H APTT Sodium 136 L Potassium 4.5 Chloride 107 Carbon Dioxide 22 BUN 34 H Creatinine 0.58 L Estimated GFR > 60.0 BUN/Creatinine Ratio 58.6 H Glucose 173 H Lactate Calcium 7.8 L Magnesium 1.5 L Total Bilirubin AST ALT Alkaline Phosphatase Total Creatine Kinase CK-MB (CK-2) CK-MB (CK-2) Rel Index Troponin I NT-Pro-B Natriuret Pep Total Protein Albumin Globulin Albumin/Globulin Ratio TSH Urine RBC Urine WBC Ur Squamous Epith Cells Amorphous Sediment Urine Bacteria Urine Mucus Ur Culture Indicated? Nasal Screen MRSA (PCR) Stl C. cayetanensis PCR Stool Rotavirus (PCR) Stool Adenovirus (PCR) Stool Astrovirus (PCR) Stool Cryptosporidium PCR Stl E.coli Shiga Tox PCR St Sh/Enteroin Ecoli PCR Stool E coli O157 PCR Stl Enterotoxigenic E PCR Stool EPEC (PCR) Stl E. histolytica PCR Stool Giardia Lamblia PCR Stool Sapovirus (PCR) Stl P. shigelloides PCR St Y.enterocolitica PCR Stool Vibrio (PCR) Stl Vibrio cholerae PCR Stl Enteroaggr Ecoli PCR Stl Norovirus GI/GII PCR Digoxin Campylobacter (PCR) C. difficile Tox (PCR) COVID-19 PCR Salmonella (PCR) Blood Type Antibody Screen Crossmatch 06/30/19 06/30/19 07/01/19 20:10 22:56 06:00 WBC RBC Hgb Hct MCV MCH MCHC RDW Plt Count Neut % (Auto) Lymph % (Auto) Anderson % (Auto) Eos % (Auto) Baso % (Auto) Neut # (Auto) Lymph # (Auto) Anderson # (Auto) Eos # (Auto) Baso # (Auto) PT 16.2 H D INR 1.4 H APTT Sodium Potassium Chloride Carbon Dioxide BUN Creatinine Estimated GFR BUN/Creatinine Ratio Glucose Lactate Calcium Magnesium Total Bilirubin AST ALT Alkaline Phosphatase Total Creatine Kinase CK-MB (CK-2) CK-MB (CK-2) Rel Index Troponin I NT-Pro-B Natriuret Pep Total Protein Albumin Globulin Albumin/Globulin Ratio TSH Urine RBC Urine WBC Ur Squamous Epith Cells Amorphous Sediment Urine Bacteria Urine Mucus Ur Culture Indicated? Nasal Screen MRSA (PCR) Negative for mrsa Stl C. cayetanensis PCR Not detected Stool Rotavirus (PCR) Not detected Stool Adenovirus (PCR) Not detected Stool Astrovirus (PCR) Not detected Stool Cryptosporidium PCR Not detected Stl E.coli Shiga Tox PCR Not detected St Sh/Enteroin Ecoli PCR Not detected Stool E coli O157 PCR Not Reportable Stl Enterotoxigenic E PCR Not detected Stool EPEC (PCR) Not detected Stl E. histolytica PCR Not detected Stool Giardia Lamblia PCR Not detected Stool Sapovirus (PCR) Not detected Stl P. shigelloides PCR Not detected St Y.enterocolitica PCR Not detected Stool Vibrio (PCR) Not detected Stl Vibrio cholerae PCR Not detected Stl Enteroaggr Ecoli PCR Not detected Stl Norovirus GI/GII PCR Not detected Digoxin Campylobacter (PCR) Not detected C. difficile Tox (PCR) Not detected COVID-19 PCR Salmonella (PCR) Not detected Blood Type Antibody Screen Crossmatch 07/01/19 07/01/19 06:00 06:00 WBC 8.6 RBC 2.35 L Hgb 7.4 L Hct 21.6 L MCV 91.9 D MCH 31.7 MCHC 34.4 RDW 16.1 H Plt Count 158 Neut % (Auto) 90.7 H Lymph % (Auto) 6.1 L Anderson % (Auto) 3.0 Eos % (Auto) 0.0 L Baso % (Auto) 0.2 Neut # (Auto) 7800 H Lymph # (Auto) 500 L Anderson # (Auto) 300 Eos # (Auto) 0 Baso # (Auto) 0 PT INR APTT Sodium 136 L Potassium 4.2 Chloride 109 H Carbon Dioxide 25 BUN 29 H Creatinine 0.55 L Estimated GFR > 60.0 BUN/Creatinine Ratio 52.7 H Glucose 151 H Lactate Calcium 7.5 L Magnesium 2.0 Total Bilirubin 1.6 H AST 18 ALT 11 Alkaline Phosphatase 28 L Total Creatine Kinase CK-MB (CK-2) CK-MB (CK-2) Rel Index Troponin I NT-Pro-B Natriuret Pep Total Protein 4.2 L Albumin 2.1 L Globulin 2.1 Albumin/Globulin Ratio 1.0 TSH Urine RBC Urine WBC Ur Squamous Epith Cells Amorphous Sediment Urine Bacteria Urine Mucus Ur Culture Indicated? Nasal Screen MRSA (PCR) Stl C. cayetanensis PCR Stool Rotavirus (PCR) Stool Adenovirus (PCR) Stool Astrovirus (PCR) Stool Cryptosporidium PCR Stl E.coli Shiga Tox PCR St Sh/Enteroin Ecoli PCR Stool E coli O157 PCR Stl Enterotoxigenic E PCR Stool EPEC (PCR) Stl E. histolytica PCR Stool Giardia Lamblia PCR Stool Sapovirus (PCR) Stl P. shigelloides PCR St Y.enterocolitica PCR Stool Vibrio (PCR) Stl Vibrio cholerae PCR Stl Enteroaggr Ecoli PCR Stl Norovirus GI/GII PCR Digoxin Campylobacter (PCR) C. difficile Tox (PCR) COVID-19 PCR Salmonella (PCR) Blood Type Antibody Screen Crossmatch Assessment & Plan Assessment and plan (1) Atrial fibrillation with RVR: Current visit: Yes Status: Acute (2) GI bleed: Current visit: Yes Status: Acute (3) Anxiety: Current visit: No Status: Acute (4) BPH (benign prostatic hyperplasia): Current visit: No Status: Chronic (5) Polymyalgia rheumatica: Current visit: No Status: Chronic Assessment & Plan narrative: 84 yo man with significant GI bleed. EGD was done yesterday showing no upper source, but multiple duodenal diverticula were seen. Colonoscopy was attempted, but due to blood and clots, not much could be seen. The source has not been localized and the patient is on his fourth unit of blood. We do not have the capabilities of IR or of an appropriate nuc med scan at this time without transfer. I can offer the patient a repeat scope or a colectomy, however with an unidentified source of bleeding, this may not identify or solve his problem as it may be in the small intestine. I discussed this with Dr. Nelson who is planning on transfer. Hold coumadin and any other blood thinners Continue Protonix 40 mg twice a day IV Consider transfer for angiography, tagged scan, or double balloon enteroscopy to further evaluate GI bleed Time Spent With Patient Time with patient: 25 - 35 minutes Quality VTE Deep Vein Thrombosis/Pulmonary Embolism Present on Admission: No
--- NOTE | 2019-07-01 12:55 | CM.DPNOTE ---
DCP According to Dr Nelson, patient will be transferred to [facility] once bed available. DC planning team will remain available in case this changes or needs arise JW
[2019-07-01 13:41] LABS: Hematocrit 24.7 % (41-53); Hemoglobin 8.6 g/dL (13.5-17.5)
[2019-07-01 16:49] LABS: Hematocrit 24.9 % (41-53); Hemoglobin 8.6 g/dL (13.5-17.5)
--- NOTE | 2019-07-01 17:20 | PC.NURSE ---
1715- Patient transferred to [facility]. Report called to Jacquie NEVAREZ. PRBC hanging in transit per MD order. Patient VSS and Alert and Oriented at time of transfer. Patient notified of room number and time of transport.
== END 2019-07-01 17:18 | disposition short-term general hospital (02) | DRG 378 ==
LOC: ED 14:56 → ICU 07-01 07:50 → AC 07-05 12:36 → ICU 07-06 08:06
PROVIDERS: Specialist; Admitting Provider Internal Medicine; Emergency Provider Emergency Medicine; PCP Family Medicine; Referring Provider Emergency Medicine; Visit Provider Internal Medicine
PROC: 0DJD8ZZ Inspection of Lower Intestinal Tract, Via Natural or Artificial Opening Endoscopic (ICD-10-PCS; CPT 45378; principal; 2019-06-30 19:15)
DX: K92.2 Gastrointestinal hemorrhage, unspecified (principal); D62 Acute posthemorrhagic anemia; I48.20 Chronic atrial fibrillation, unspecified; R53.1 Weakness; F41.9 Anxiety disorder, unspecified; N40.0 Benign prostatic hyperplasia without lower urinary tract symptoms; Z79.01 Long term (current) use of anticoagulants; M35.3 Polymyalgia rheumatica; K57.10 Diverticulosis of small intestine without perforation or abscess without bleeding; W19.XXXA Unspecified fall, initial encounter; Z91.81 History of falling; Z86.73 Personal history of transient ischemic attack (TIA), and cerebral infarction without residual deficits; Z03.818 Encounter for observation for suspected exposure to other biological agents ruled out; I95.9 Hypotension, unspecified; R00.0 Tachycardia, unspecified; Z85.038 Personal history of other malignant neoplasm of large intestine; F32.9 Major depressive disorder, single episode, unspecified; Z85.118 Personal history of other malignant neoplasm of bronchus and lung; Z66 Do not resuscitate; Z79.52 Long term (current) use of systemic steroids; Z85.89 Personal history of malignant neoplasm of other organs and systems
CPT/HCPCS: 43235; 45331; 36415; 36430; 70450; 71045; 74177; 80048; 80053; 80162; 81003; 81015; 82550; 83605; 83735; 83880; 84443; 84484; 85014; 85018; 85025; 85610; 85730; 86850; 86900; 86901; 86927; 87086; 87507; 87635; 87797; 93005; 96361; 96374; 96375; 99285; G0378; P9016; C9113; J0330; J1160; J1720; J2270; J2704; J2930; J3010; J3430

== ENCOUNTER → 2019-08-18 12:47 | Outpatient (CLI) | payer MEDICARE, SELFPAY ==
[2019-06-30 19:36] VITALS: BMI 21.3
--- NOTE | 2019-08-18 12:49 | DI.RAD.S_ITS ---
PROCEDURE: XR HIP W PEL IF DONE LT MIN 4V INDICATIONS: Pain after fall TECHNIQUE: AP pelvis with lateral view(s) of the bilateral hip(s). COMPARISON: None. FINDINGS: Bones: No fractures or dislocations. Pelvic ring appears intact. No suspicious bony lesions. Soft tissues: The visualized bowel gas pattern is normal. No suspicious soft tissue calcifications. IMPRESSION: Minimal hip joint degenerative osteoarthritis, no trauma found. Dictated by: Antwon Villa M.D. on 08/18/2019 at 13:52 Approved by: Antwon Villa M.D. on 08/18/2019 at 13:53
== END ==
PROVIDERS: PCP Family Medicine; Referring Provider Family Medicine; Visit Provider Family Medicine
DX: M25.551 Pain in right hip (principal); M25.552 Pain in left hip
CPT/HCPCS: 73522

== ENCOUNTER 2019-08-26 20:35 | Emergency (ER) | payer MEDICARE, SELFPAY ==
[2019-06-30 19:36] VITALS: BMI 21.3
[2019-08-26 20:52] VITALS: BP 128/82; PULSE 93; RESP 16; TEMP 37.1; O2SAT 97; BMI 19.8
[2019-08-26 21:06] LABS: INR 1.2 (0.9-1.3); Prothrombin Time 13.3 SECONDS (10.1-12.7)
[2019-08-26 21:07] LABS: Add Manual Diff / Slide Review NO; Basophils Absolute Auto 0 /uL (0-100); Basophils Percent Auto 0.4 % (0-2); Eosinophils Absolute Auto 0 /uL (0-450); Hematocrit 34.8 % (41-53); Hemoglobin 11.7 g/dL (13.5-17.5); Lymphocytes Absolute Auto 600 /uL (1100-4500); Lymphocytes Percent Auto 7.3 % (25-40); Mean Corpuscular HGB Conc 33.5 % (30-36); Mean Corpuscular Volume 89.5 fL (80-100); Monocytes Absolute Auto 500 /uL (0-900); Monocytes Percent Auto 6.1 % (3-14); Neutrophils Absolute Auto 7100 /uL (1500-7000); Neutrophils Percent Auto 86.2 % (50-75); Platelet Count 235 X10^3/uL (150-400); Red Blood Cell Count 3.89 X10^6/uL (4.5-5.9); Red Cell Distribution Width 16.3 % (11.6-14.8); White Blood Cell Count 8.2 X10^3/uL (4.5-11.0)
[2019-08-26 21:09] LABS: PTT Partial Thromboplastin Tim 29 SECONDS (26.4-36.2)
--- NOTE | 2019-08-26 21:15 | ED.ABDPAIN ---
HPI - Abdominal Pain General Chief Complaint: Abdominal Pain Stated Complaint: Abd pain/constipation Time Seen by Provider: 08/26/19 21:05 Mode of arrival: EMS History of Present Illness HPI narrative: 84-year-old gentleman presents with complaints of increasing abdominal pain over the last week. He has a distant history of colon cancer and the current history of atrial fibrillation. He notes that he has not had a bowel movement for over a week. At this point he is unable to even pass gas. He has tried stool softeners as well as a number of doses of milk of magnesia none of which have been effective. He has not had a prior diagnosis of a bowel obstruction. He describes no fevers, chest pain, shortness of breath, orthopnea, lower extremity edema. He notes that he has not been eating or drinking well because of the abdominal pain and discomfort. Related Data Home Medications Medication Instructions Recorded Confirmed CYANOCOBALAMIN (VITAMIN B-12) 1 tab PO QDAY #0 07/22/12 08/26/19 cholecalciferol (vitamin D3) 1,000 unit PO QDAY #0 01/20/17 08/26/19 [Vitamin D3] donepezil 10 mg tablet 10 mg PO BEDTIME 08/23/19 08/26/19 prednisone 10 mg PO BID 08/26/19 08/26/19 Previous Rx's Medication Instructions Recorded digoxin 125 mcg (0.125 mg) tablet 125 mcg PO QDAY #90 tab 11/19/18 ipratropium bromide 42 mcg (0.06 2 spray NASAL QID #15 ml 01/14/19 %) nasal spray tamsulosin 0.4 mg capsule 0.4 mg PO DAILY #90 cap 07/11/19 mirtazapine 7.5 mg tablet 7.5 mg PO DAILY #30 tab 08/01/19 pantoprazole 40 mg tablet,delayed 40 mg PO BID #180 tab 08/12/19 release Allergies Allergy/AdvReac Type Severity Reaction Status Date / Time iodine [IODINE] Allergy Mild FACIAL Verified 08/16/19 10:45 SWELLING Review of Systems Review of Systems Narrative: Pertinent positive and negative findings as per HPI Does describe increasing global weakness and specifically bilateral lower extremity weakness, difficulty standing up straight because of the abdominal pain and Remainder of review of systems is otherwise unremarkable for Constitutional: Fevers, chills, ENT: No sore throat, neck pain, ear pain CV: Chest pain, palpitations, dyspnea on exertion Respiratory: Cough, wheeze, dyspnea : Dysuria, hematuria, flank pain MS: joint swelling or warmth Skin: Rashes, nonhealing lesions Neuro: Syncope, tingling Psych: Depression, anxiety, suicidal ideation Endocrine: heat or cold intolerance, very dry skin Patient History Medical History Ankle pain (Chronic) Anxiety (Acute) Aortic aneurysm (Chronic) Atrial fibrillation (Chronic) Cancer of parotid gland (Resolved) Chronic back pain (Chronic) Chronic cough (Chronic) Colorectal cancer (Resolved) Foot pain (Chronic) Head and neck cancer (Resolved) Hyperlipidemia (Chronic) Hypertension (Chronic) Lumbar spine pain (Chronic) Lung cancer (Resolved) Mid back pain (Chronic) Osteopenia (Chronic 2015) Positive PPD (Resolved) Salivary gland cancer (Resolved) TIA (transient ischemic attack) (Resolved) Surgical History Anesthesia (Resolved) History of head, eyes, ears, nose, and throat (HEENT) surgery (Resolved) History of sinus surgery (Resolved) History of surgery of head (Resolved) History of throat surgery (Resolved) Status post cervical spinal fusion (Resolved) Status post colectomy (Resolved) Status post lumbar laminectomy (Resolved) Family History Brother Heart disease Mother Breast cancer Heart disease Father Heart disease Social History marital status: household members: spouse Smoking Status: Former smoker alcohol intake: current substance use type: does not use Smoking Status: Former smoker alcohol intake frequency: 0-2 drinks per day Substance Use Type: does not use Exam Narrative Exam Narrative: General: Frail appearing, in no acute distress. Able to give a complete and coherent history. Well-nourished well-developed HEENT: Moist mucous membranes, normal sclera with reactive pupils, Neck: No JVD, supple Respiratory: Lungs are clear to auscultation, no wheezing no rales no rhonchi. Full and symmetrical air movement Cardiac: iregular rate and rhythm, 4/6 systolic ejection murmurs no bruits Abdomen: Soft, tender in the entire lower abdomen without rebound or guarding. Good bowel tones, no flank pain Skin: Warm and dry, no rashes, multiple subcutaneous bruises across most of his body consistent with his prior history of steroid use, anticoagulants and very thin skin Neurologic: Grossly neurologically intact, globally weak with no obvious asymmetries or abnormalities Extremities: No trauma, well perfused Psych: Cooperative, appropriate insight and affect Initial Vital Signs Initial Vital Signs: Vital Signs Temperature 98.8 F 08/26/19 20:52 Pulse Rate 93 H 08/26/19 20:52 Respiratory Rate 16 08/26/19 20:52 Blood Pressure 128/82 08/26/19 20:52 Pulse Oximetry 97 08/26/19 20:52 Course Orders Ordered: ED Orders 08/26/19 20:49 Complete Blood Count AUTO DIFF Stat Comprehensive Metabolic Panel Stat Lipase Stat Partial Thromboplastin Time Stat Prothrombin Time INR Stat 08/26/19 21:00 EKG-12 Lead Stat 08/26/19 21:25 CT abdomen pelvis w con Stat Discontinued Medications Hydromorphone HCl (Dilaudid) 0.5 mg IV NOW ONE Stop: 08/26/19 21:25 Last Admin: 08/26/19 21:33 Dose: 0.5 mg Documented by: JOANNA Sodium Chloride (Normal Saline 0.9%) 1,000 mls @ 1,000 mls/hr IV BOLUS ONE Stop: 08/26/19 22:23 Last Infusion: 08/26/19 22:49 Dose: 0 mls/hr Documented by: Admin: 08/26/19 21:33 Dose: 1,000 mls/hr Documented by: JOANNA Magnesium Citrate (Magnesium Citrate) 300 ml PO NOW ONE Stop: 08/26/19 22:39 Last Admin: 08/26/19 22:48 Dose: 300 ml Documented by: JOANNA Mineral Oil (Mineral Oil Enema) 1 each AL NOW ONE Stop: 08/26/19 22:38 Last Admin: 08/26/19 22:55 Dose: 1 each Documented by: JOANNA Ondansetron HCl (Zofran) 4 mg IV NOW ONE Stop: 08/26/19 21:25 Last Admin: 08/26/19 21:33 Dose: 4 mg Documented by: JOANNA Vital Signs Vital signs: Vital Signs - 8 hr 08/26/19 20:52 08/26/19 22:23 08/26/19 23:18 Temperature 98.8 F Pulse Rate 93 H 108 H 128 H Respiratory Rate 16 16 16 Blood Pressure 128/82 Blood Pressure [Left Arm] 119/67 127/97 H Pulse Oximetry 97 97 97 MDM - Abdominal Pain Medical Records Attestation: I reviewed the patient's medical records. Lab Data Attestation: I reviewed the patient's lab results. Result diagrams: 08/26/19 20:49 08/26/19 20:49 Labs: Lab Results 08/26/19 08/26/19 08/26/19 Range/Units 20:49 20:49 20:49 WBC 8.2 (4.5-11.0) X10^3/uL RBC 3.89 L (4.5-5.9) X10^6/uL Hgb 11.7 L (13.5-17.5) g/dL Hct 34.8 L (41-53) % MCV 89.5 (80-100) fL MCH 30.0 (26-34) PG MCHC 33.5 (30-36) % RDW 16.3 H (11.6-14.8) % Plt Count 235 (150-400) X10^3/uL Neut % (Auto) 86.2 H (50-75) % Lymph % (Auto) 7.3 L (25-40) % [place] % (Auto) 6.1 (3-14) % Eos % (Auto) 0.0 L (2-4) % Baso % (Auto) 0.4 (0-2) % Neut # (Auto) 7100 H (7519-5239) /uL Lymph # (Auto) 600 L (6722-4633) /uL [place] # (Auto) 500 (0-900) /uL Eos # (Auto) 0 (0-450) /uL Baso # (Auto) 0 (0-100) /uL PT 13.3 H (10.1-12.7) SECONDS INR 1.2 (0.9-1.3) APTT 29 D (26.4-36.2) SECONDS Sodium 137 (137-145) mmol/L Potassium 4.2 (3.4-5.1) mmol/L Chloride 104 (98-107) mmol/L Carbon Dioxide 29 (22-32) mmol/L BUN 21 H (9-20) mg/dL Creatinine 0.57 L (0.66-1.25) mg/dL Estimated GFR > 60.0 (>60) mL/min BUN/Creatinine Ratio 36.8 H (6-22) Glucose 143 H (80-110) mg/dL Calcium 9.2 (8.4-10.2) mg/dL Total Bilirubin 0.6 (0.2-1.3) mg/dL AST 23 (17-59) IU/L ALT 13 (<50) IU/L Alkaline Phosphatase 69 (38-126) U/L Total Protein 6.2 L (6.3-8.2) g/dL Albumin 3.3 L (3.5-5.0) g/dL Globulin 2.9 (1.7-4.1) g/dL Albumin/Globulin Ratio 1.1 (1.0-2.8) Lipase 46 (23-300) U/L Imaging Data CT scan - abdomen/pelvis: Radiologist's Impression: IMPRESSION: 1. Proctitis. Moderate to severe distention of the rectum. 2. Normal appendix. 3. Mildly distended and thickened small bowel loops, consistent with gastroenteritis. 4. Possible mild thickening of the stomach, which could indicate gastritis. 5. New right lung base nodule, concerning for malignancy. IV contrast enhanced chest CT is recommended for further assessment. Dictated by: Lin Alvarez M.D. on 08/26/2019 at 21:50 MDM Narrative Medical decision making narrative: Labs, CT scan exam and history are most consistent with obstipation. Manual stool disimpaction is attempted with a moderate amount of stool removed from the rectal vault. This was followed by 150 mg of oral magnesium citrate and a mineral oil enema. After the enema a moderate amount of stool was returned. At this point his belly is soft he is feeling improved and is requesting discharge. There is no evidence of small-bowel obstruction, infection, bowel perforation. He is safe for home discharge Discharge Plan Departure Patient Disposition: Home Clinical Impression: Obstipation Abdominal pain Qualifiers: Abdominal location: generalized Qualified Code(s): R10.84 - Generalized abdominal pain Instructions: DI for Constipation Activity Restrictions/Additional Instructions: Thank you for coming in today Your workup revealed that you do not have a bowel obstruction, any recurrent cancers or tumors in your belly or any significant infection. You do have a dramatic amount of stool throughout her entire colon but certainly impacted in your rectum. We did a manual disimpaction in the emergency department followed by an enema. This was able to get out most of the stool in the rectum and sigmoid colon however therer is still quite a bit more stool that needs to come out. You were also given half of the bottle of magnesium citrate to encourage water to be drawn into your colon and help with pressure from above to push the stool around your colon and out. Please drink the 2nd half of the magnesium citrate bottle when you get home. I would expect to have quite a bit of stool within the next 12-24 hours. If you do not, it is okay to try another large dose of milk of magnesia. If that too is ineffective, it may be worth another trip to the emergency department to see what other options we have. If you have significantly increasing pain, fevers, bleeding from your bottom or any vomiting please feel free to return for further evaluation. Prescriptions: No Action CYANOCOBALAMIN (VITAMIN B-12) 1 tab PO QDAY Qty: 0 RF: 0 cholecalciferol (vitamin D3) [Vitamin D3] 1,000 UNIT tablet 1,000 unit PO QDAY Qty: 0 RF: 0 digoxin [Lanoxin] 125 mcg tablet 125 mcg PO QDAY Qty: 90 RF: 5 ipratropium bromide 42 mcg (0.06 %) spray,non-aerosol 2 spray NASAL QID Qty: 15 RF: 1 tamsulosin [Flomax] 0.4 mg capsule 0.4 mg PO DAILY Qty: 90 RF: 1 mirtazapine 7.5 mg tablet 7.5 mg PO DAILY Qty: 30 RF: 1 pantoprazole 40 mg tablet,delayed release (DR/EC) 40 mg PO BID Qty: 180 RF: 3 donepezil [Aricept] 10 mg tablet 10 mg PO BEDTIME RF: 0 prednisone 5 mg tablet 10 mg PO BID RF: 0 Referrals: Leif Healy MD [Primary Care Provider] -
[2019-08-26 21:20] LABS: Alanine Aminotransferase 13 IU/L (<50); Albumin 3.3 g/dL (3.5-5.0); Albumin Globulin Ratio 1.1 (1.0-2.8); Alkaline Phosphatase 69 U/L (38-126); Aspartate Aminotransferase 23 IU/L (17-59); BUN Creatinine Ratio 36.8 (6-22); Bilirubin Total 0.6 mg/dL (0.2-1.3); Blood Urea Nitrogen 21 mg/dL (9-20); Calcium 9.2 mg/dL (8.4-10.2); Carbon Dioxide 29 mmol/L (22-32); Chloride 104 mmol/L (98-107); Estimated Glomerular Filt Rate > 60.0 mL/min (>60); Globulin 2.9 g/dL (1.7-4.1); Glucose 143 mg/dL (80-110); HEMOLYSIS 47 (0-50); Lipase 46 U/L (23-300); Potassium 4.2 mmol/L (3.4-5.1); Sodium 137 mmol/L (137-145); Total Protein 6.2 g/dL (6.3-8.2)
--- NOTE | 2019-08-26 21:25 | DI.CT.S_ITS ---
PROCEDURE: CT ABDOMEN PELVIS W CON INDICATIONS: belly pain, TECHNIQUE: After the administration of intravenous contrast, 5 mm thick sections acquired from the diaphragm to the symphysis. 5 mm coronal and sagittal reformats were acquired. For radiation dose reduction, the following was used: automated exposure control, adjustment of mA and/or kV according to patient size. COMPARISON: [facility], CT, CT ABDOMEN PELVIS W CON, 06/30/2019, 12:58. FINDINGS: Image quality: Excellent. ABDOMEN: Lung bases: There is a spiculated nodule within the right anterior lung base measuring 20 mm diameter, new since the prior examination. Heart size is normal. Solid organs: Liver is normal in size and enhancement. Gallbladder is within normal limits. Biliary system is non dilated. Pancreas enhances normally. Spleen is normal in size and enhancement. No adrenal nodules. Kidneys demonstrate normal size and enhancement, without hydronephrosis. Peritoneum and bowel: The stomach is decompressed but appears mildly thickwalled. There is a diverticulum of the 2nd portion of duodenum, as before. Mildly thickened and distended fluid-filled loops of small bowel are present throughout the abdomen and pelvis. Appendix is normal. There is moderate to severe distention of the rectum, which has increased. There is mild thickening of the rectum, as well as moderate surrounding fat stranding. No pericolonic abscess. There is a rectosigmoid anastomosis. No free fluid or air. Nodes and vessels: No retroperitoneal or mesenteric adenopathy by size criteria. Aorta and inferior vena cava are normal in size. Miscellaneous: No ventral hernias. PELVIS: Genitourinary: Bladder wall thickness is normal. Miscellaneous: No inguinal hernias or adenopathy. Bones: No suspicious bony lesions. No vertebral body compression fractures. IMPRESSION: 1. Proctitis. Moderate to severe distention of the rectum. 2. Normal appendix. 3. Mildly distended and thickened small bowel loops, consistent with gastroenteritis. 4. Possible mild thickening of the stomach, which could indicate gastritis. 5. New right lung base nodule, concerning for malignancy. IV contrast enhanced chest CT is recommended for further assessment. Dictated by: Lin Alvarez M.D. on 08/26/2019 at 21:50 Approved by: Lin Alvarez M.D. on 08/26/2019 at 21:54
[2019-08-26] MEDS: ONDANSETRON 4 MG/2 ML INJ IV (21:33)
[2019-08-26] MEDS: HYDROMORPHONE 0.5 MG INJ IV (21:33)
[2019-08-26] MEDS: SODIUM CHLORIDE 0.9% 1,000 ML 1000 ML IV (21:33)
[2019-08-26 22:23] VITALS: BP 119/67; PULSE 108; RESP 16; O2SAT 97
[2019-08-26] MEDS: MAGNESIUM CITRATE 300 ML SOLUTION PO (22:48)
[2019-08-26] MEDS: MINERAL OIL 1 EACH ENEMA PR (22:55)
[2019-08-26 23:18] VITALS: BP 127/97; PULSE 128; RESP 16; O2SAT 97
== END 2019-08-26 23:59 | disposition home or self-care (01) ==
PROVIDERS: Emergency Provider Emergency Medicine; PCP Family Medicine
DX: K59.00 Constipation, unspecified (principal); R10.84 Generalized abdominal pain
CPT/HCPCS: 36415; 51798; 74177; 80053; 83690; 85025; 85610; 85730; 93005; 96361; 96374; 96375; 99284; 99285; J1170; J2405

== ENCOUNTER 2019-09-30 13:13 | Emergency (ER) | payer MEDICARE, SELFPAY ==
[2019-06-30 19:36] VITALS: BMI 21.3
[2019-09-30 13:49] VITALS: BP 106/62; PULSE 94; RESP 18; TEMP 36.5; O2SAT 99; BMI 18.5
--- NOTE | 2019-09-30 16:58 | ED.DENTAL ---
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 Patient and spouse states patient has been taking nystatin for the 3rd course for oral thrush and patient was evaluated by his primary care physician Dr. Healy 2 weeks ago. Spouse reports patient has increased difficulty swallowing. However, he is able to tolerate mashed potato, smoothe and pills w/o crushed with thickened fluid. Spouse also states patient is taking oxycodone 1 tab twice a day for chronic back pain which wipes him out. Patient denies abdominal pain, nausea, vomiting, fever or chills. Reports no recent swallow evaluation. Patient reports he is able to urinate without difficulty but occasionally has dark and/concentrated urine. Patient denies current GI bleed symptoms/signs. During initial encounter and reviewing history, patient and spouse declines to wait further and expressed to leave emergency room. Related Data Home Medications Medication Instructions Recorded Confirmed CYANOCOBALAMIN (VITAMIN B-12) 1 tab PO QDAY #0 07/22/12 09/14/19 cholecalciferol (vitamin D3) 1,000 unit PO QDAY #0 01/20/17 09/14/19 [Vitamin D3] donepezil 10 mg tablet 10 mg PO BEDTIME 08/23/19 09/14/19 prednisone 10 mg PO BID 08/26/19 09/14/19 Previous Rx's Medication Instructions Recorded digoxin 125 mcg (0.125 mg) tablet 125 mcg PO QDAY #90 tab 11/19/18 ipratropium bromide 42 mcg (0.06 2 spray NASAL QID #15 ml 01/14/19 %) nasal spray tamsulosin 0.4 mg capsule 0.4 mg PO DAILY #90 cap 07/11/19 pantoprazole 40 mg tablet,delayed 40 mg PO BID #180 tab 08/12/19 release mirtazapine 7.5 mg tablet 15 mg PO DAILY #60 tab 09/15/19 hydrocodone 5 mg-acetaminophen 325 1 tab PO BID PRN #30 tab 09/26/19 mg tablet nystatin 100,000 unit/mL oral 5 ml PO QID 10 Days #200 ml 09/26/19 suspension Allergies Allergy/AdvReac Type Severity Reaction Status Date / Time iodine [IODINE] Allergy Mild FACIAL Verified 09/30/19 13:55 SWELLING Review of Systems <CLARISSA Ibanez - Last Filed: 09/30/19 17:09> Review of Systems Narrative: General: Denies fever, chills, fatigue, malaise, sweats. HEENT: See HPI Respiratory: Denies dyspnea, cough, wheezing, hemoptysis, sputum. Cardiovascular: Denies chest pain, palpitations, orthopnea, edema. Gastrointestinal: See HPI : Denies dysuria, frequency, incontinence, hematuria, urinary retention. Musculoskeletal: Denies weakness, joint pain or bony pain. Skin: Denies rash, skin lesions, or other. Neurologic: Denies weakness, headache, numbness, change in speech, confusion, seizures, incoordination. Psychiatric: No concerning psychosocial issues. 12-point review of systems is negative except for those stated above. Patient History <CLARISSA Ibanez - Last Filed: 09/30/19 17:09> Medical History Ankle pain (Chronic) Anxiety (Acute) Aortic aneurysm (Chronic) Atrial fibrillation (Chronic) Cancer of parotid gland (Resolved) Chronic back pain (Chronic) Chronic cough (Chronic) Colorectal cancer (Resolved) Foot pain (Chronic) Head and neck cancer (Resolved) Hyperlipidemia (Chronic) Hypertension (Chronic) Lumbar spine pain (Chronic) Lung cancer (Resolved) Mid back pain (Chronic) Osteopenia (Chronic 2015) Positive PPD (Resolved) Salivary gland cancer (Resolved) TIA (transient ischemic attack) (Resolved) Surgical History Anesthesia (Resolved) History of head, eyes, ears, nose, and throat (HEENT) surgery (Resolved) History of sinus surgery (Resolved) History of surgery of head (Resolved) History of throat surgery (Resolved) Status post cervical spinal fusion (Resolved) Status post colectomy (Resolved) Status post lumbar laminectomy (Resolved) Family History Brother Heart disease Mother Breast cancer Heart disease Father Heart disease Social History marital status: household members: spouse Smoking Status: Former smoker alcohol intake: current substance use type: does not use Smoking Status: Former smoker alcohol intake frequency: 0-2 drinks per day Substance Use Type: does not use Exam <CLARISSA Ibanez - Last Filed: 09/30/19 17:09> Narrative Exam Narrative: GEN: Alert, oriented x 3, under nourished and been appearing, and in no acute distress. Head: Normal cephalic, atraumatic. No scalp or temporal tenderness, palpable mass or rash. ENT: Hearing grossly intact. Nose without bleeding, purulent discharge or deviation. Mucous membrane dry, several white lesions on tongue. Throat without erythema. No tonsils. Uvula in midline, airway patent. Neck: Trachea in midline. No JVD, non-tender without lymphadenopathy. No masses or thyroid megaly. Supple, non-tender and no meningeal signs. RESPIRATORY: Lungs are clear to auscultate bilaterally. No cough, wheezes, rales, or rhonchi. No stridor, respiratory distress, increase work of breathing, or accessary muscle used. NEUROLOGICAL: Alert and oriented to place, time and person. Sensation and motor function intact bilaterally. No facial droops, dysphasia. PSYCHIATRIC: Good judgement and reason, without hallucinations, abnormal affect or abnormal behaviors during the examination. Patient is not suicidal. Initial Vital Signs Initial Vital Signs: Vital Signs Temperature 97.7 F 09/30/19 13:49 Pulse Rate 94 H 09/30/19 13:49 Respiratory Rate 18 09/30/19 13:49 Blood Pressure 106/62 09/30/19 13:49 Pulse Oximetry 99 09/30/19 13:49 <Nafisa Benavidez DO - Last Filed: 10/01/19 07:41> Initial Vital Signs Initial Vital Signs: Vital Signs Temperature 97.7 F 09/30/19 13:49 Pulse Rate 94 H 09/30/19 13:49 Respiratory Rate 18 09/30/19 13:49 Blood Pressure 106/62 09/30/19 13:49 Pulse Oximetry 99 09/30/19 13:49 Course <Jimmy AlejandraCLARISSA samuels - Last Filed: 09/30/19 17:09> Vital Signs Vital signs: Vital Signs - 8 hr 09/30/19 13:49 Temperature 97.7 F Pulse Rate 94 H Respiratory Rate 18 Blood Pressure 106/62 Pulse Oximetry 99 <Nafisa Benavidez DO - Last Filed: 10/01/19 07:41> Vital Signs Vital signs: Vital Signs - 8 hr 09/30/19 13:49 Temperature 97.7 F Pulse Rate 94 H Respiratory Rate 18 Blood Pressure 106/62 Pulse Oximetry 99 MDM - Dental/Oral <Jimmy AlejandraCLARISSA samuels - Last Filed: 09/30/19 17:09> Differential Diagnosis Differential diagnosis: Likely other (Dysphagia, oral thrush, neoplasm) Medical Records Attestation: I reviewed the patient's medical records. MDM Narrative Medical decision making narrative: Patient is awake and alert and is capable making sound medical decision. I offered lab tests for electrolytes and dehydration and gentle IV hydration while waiting for lab results which patient and spouse declined. The stated today's weight was extremely long and is not willing to wait another hour or 2 for the study and treatment. Oral thrush is improving. Suggested to patient's spouse to medicate patient half a tabs of oxycodone with 1 regular tab of Tylenol to decrease sedation. Continue with thickened nutritional oral hydration such as smoothie included protein powder and Ensure and to follow-up with primary care physician on Thursday to discuss possible swallow evaluation. Patient and spouse advised to return to ED with any worsening symptoms or concerns. They both verbalized understanding and signed out as Against Medical Advice. Discharge Plan Departure Patient Disposition: Left Against Medical Advice Clinical Impression: Oral thrush Dysphagia Qualifiers: Dysphagia type: unspecified Qualified Code(s): R13.10 - Dysphagia, unspecified Discharge Date/Time: 09/30/19 16:26 Instructions: DI for Thrush, DI for Esophageal Dysphagia Activity Restrictions/Additional Instructions: You have been diagnosed with [difficulty swallowing, dry mouth and thrush. You have declined IV, lab test and IV hydration today. You elected to follow-up with Dr. Healy on Thursday with the reason for today's visit]. What to do: *Take your medications as directed. Continue with nystatin. Please take thickened fluid, smoothie with protein powder frequently. *Follow up with your primary care provider in 2-3 days, call for an appointment. Let them know you were seen in the ED and that we asked you to be seen in follow up. *Return to ED if you have any new, worsening, or concerning symptoms, such as [chest pain, breathing difficulty, unable to tolerate fluids, facial droops, difficulty with speech, weakness in extremities, fever, dehydration or any acute concerns]. Prescriptions: No Action CYANOCOBALAMIN (VITAMIN B-12) 1 tab PO QDAY Qty: 0 RF: 0 cholecalciferol (vitamin D3) [Vitamin D3] 1,000 UNIT tablet 1,000 unit PO QDAY Qty: 0 RF: 0 digoxin [Lanoxin] 125 mcg tablet 125 mcg PO QDAY Qty: 90 RF: 5 ipratropium bromide 42 mcg (0.06 %) spray,non-aerosol 2 spray NASAL QID Qty: 15 RF: 1 tamsulosin [Flomax] 0.4 mg capsule 0.4 mg PO DAILY Qty: 90 RF: 1 pantoprazole 40 mg tablet,delayed release (DR/EC) 40 mg PO BID Qty: 180 RF: 3 donepezil [Aricept] 10 mg tablet 10 mg PO BEDTIME RF: 0 mirtazapine 7.5 mg tablet 15 mg PO DAILY Qty: 60 RF: 1 nystatin 100,000 unit/mL suspension 5 ml PO QID 10 Days Qty: 200 RF: 0 hydrocodone-acetaminophen 5-325 mg tablet 1 tab PO BID PRN (Reason: pain) Qty: 30 RF: 0 prednisone 5 mg tablet 10 mg PO BID RF: 0 Referrals: Leif Healy MD [Primary Care Provider] - Stand Alone Forms: Against Medical Advice <Nafisa Benavidez DO - Last Filed: 10/01/19 07:41> Cosign ED Attending [place] Attestation: I was immediately available in the department for consultation. Documentation has been reviewed. I agree with assessment and plan.
== END 2019-09-30 16:26 | disposition left against medical advice (07) ==
PROVIDERS: Emergency Provider Nurse Practitioner Family; PCP Family Medicine
DX: B37.0 Candidal stomatitis (principal); R13.10 Dysphagia, unspecified
CPT/HCPCS: 99281

== ENCOUNTER 2019-10-04 13:31 | Inpatient (IN) | payer MEDICARE, SELFPAY ==
[2019-06-30 19:36] VITALS: BMI 21.3
[2019-10-04] VITALS (14 sets, daily range): BP systolic 97–124; BP diastolic 57–76; PULSE 91–129; RESP 12–40; TEMP 37.4–37.8; O2SAT 81–99; BMI 17.6
[2019-10-04] MEDS: DEXTROSE IV (13:02)
[2019-10-04] MEDS: KCL IV (13:02)
[2019-10-04] MEDS: NS IV (13:02)
--- NOTE | 2019-10-04 13:58 | ED_ITS ---
HPI - Weakness General Chief complaint: Weakness Stated complaint: Failure to Thrive Time Seen by Provider: 10/04/19 13:39 Source: patient, family and EMS Mode of arrival: EMS Limitations: no limitations History of Present Illness HPI Narrative: The patient arrives by EMS accompanied by his . The patient can not answer a few simple or questions, but responses are minimal. He does answer orientation questions. He has progressive weight loss and generalized weakness. He has lost approximately 60 lb in 2 years. 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 He also has a history of colon cancer. He now has dysphagia. His oral intake has decreased significantly. He drink a little fluid yesterday morning, apparently none since. His has seen white plaques in his mouth, she is concerned about thrush. He is not diabetic. He has minimal urine output, his urine is dark. He is not vomiting. He has no diarrhea. Communicating with the patient, he does complain of neck pain. There is no suggestion of headache, chest pain, or abdominal discomfort. He has no history of stroke, heart disease or lung disease. He now has dysphagia, he has no previously existing GI complaints. He is on medications for BPH. His informs me he has had no fever, no cough, no recent infection. Related Data Home Medications Medication Instructions Recorded Confirmed CYANOCOBALAMIN (VITAMIN B-12) 1 tab PO QDAY #0 07/22/12 09/14/19 cholecalciferol (vitamin D3) 1,000 unit PO QDAY #0 01/20/17 09/14/19 [Vitamin D3] donepezil 10 mg tablet 10 mg PO BEDTIME 08/23/19 09/14/19 prednisone 10 mg PO BID 08/26/19 09/14/19 Previous Rx's Medication Instructions Recorded digoxin 125 mcg (0.125 mg) tablet 125 mcg PO QDAY #90 tab 11/19/18 ipratropium bromide 42 mcg (0.06 2 spray NASAL QID #15 ml 01/14/19 %) nasal spray tamsulosin 0.4 mg capsule 0.4 mg PO DAILY #90 cap 07/11/19 pantoprazole 40 mg tablet,delayed 40 mg PO BID #180 tab 08/12/19 release mirtazapine 7.5 mg tablet 15 mg PO DAILY #60 tab 09/15/19 hydrocodone 5 mg-acetaminophen 325 1 tab PO BID PRN #30 tab 09/26/19 mg tablet nystatin 100,000 unit/mL oral 5 ml PO QID 10 Days #200 ml 09/26/19 suspension Allergies Allergy/AdvReac Type Severity Reaction Status Date / Time iodine [IODINE] Allergy Mild FACIAL Verified 10/04/19 13:45 SWELLING Review of Systems Review of Systems ROS Unobtainable: All systems reviewed & are unremarkable except as noted in HPI and below Constitutional Constitutional: Denies chills, Reports fatigue, Denies fever(s), Reports lethargy, Reports poor appetite, Reports weakness and Reports weight loss Eyes Eyes: Denies eye pain and Denies spots in vision ENT Ears, Nose, Mouth, and Throat: Reports as per HPI, Denies dizziness, Denies sinus pain, Denies sinus pressure and Reports sore throat Cardiovascular Cardiovascular: Denies chest pain, Denies irregular heart rhythm, Denies lightheadedness, Denies dyspnea and Denies orthopnea Respiratory Respiratory: Denies cough, Denies dyspnea and Denies wheezing Gastrointestinal Gastrointestinal: Denies abdominal pain, Denies change in bowel habits, Denies diarrhea, Denies loose stools, Denies nausea and Denies vomiting Comments: Poor appetite as noted in HPI. No history of GI bleed. Genitourinary Comments: Dark urine is noted HPI. No genital pain. Musculoskeletal Musculoskeletal: Reports myalgias and Denies numbness Integumentary/Breasts Skin/Breast: Denies pruritus, Denies erythema, Denies rash and Denies wounds Neurologic Neurologic: Denies behavioral changes, Denies confusion, Denies dizziness, Denies numbness and Reports weakness Psychiatric Psychiatric: Denies behavioral changes and Denies confusion Endocrine Endocrine: Reports fatigue Allergic/Immunologic Allergic/Immunologic: Denies wheezing Patient History Medical History Ankle pain (Chronic) Anxiety (Acute) Aortic aneurysm (Chronic) Atrial fibrillation (Chronic) Cancer of parotid gland (Resolved) Chronic back pain (Chronic) Chronic cough (Chronic) Colorectal cancer (Resolved) Foot pain (Chronic) Head and neck cancer (Resolved) Hx of bronchogenic malignancy (Resolved 07/27/13) Hyperlipidemia (Chronic) Hypertension (Chronic) Lumbar spine pain (Chronic) Lung cancer (Resolved) Malignant neoplasm of colon, unspecified (Resolved 07/27/13) Mid back pain (Chronic) Osteopenia (Chronic 2014) Positive PPD (Resolved) Salivary gland cancer (Resolved) TIA (transient ischemic attack) (Resolved) Surgical History Anesthesia (Resolved) History of head, eyes, ears, nose, and throat (HEENT) surgery (Resolved) History of sinus surgery (Resolved) History of surgery of head (Resolved) History of throat surgery (Resolved) Status post cervical spinal fusion (Resolved) Status post colectomy (Resolved) Status post lumbar laminectomy (Resolved) Family History Brother Heart disease Mother Breast cancer Heart disease Father Heart disease Social History marital status: household members: spouse Smoking Status: Former smoker alcohol intake: current substance use type: does not use Smoking Status: Former smoker alcohol intake frequency: 0-2 drinks per day Substance Use Type: does not use Exam Initial Vital Signs Initial Vital Signs: Vital Signs Temperature 99.3 F 10/04/19 13:40 Pulse Rate 99 H 10/04/19 13:40 Respiratory Rate 12 10/04/19 13:40 Blood Pressure 115/59 L 10/04/19 13:40 Pulse Oximetry 96 10/04/19 13:40 Const General: cooperative and ill appearing Nutritional Appearance: well nourished, cachectic and underweight Orientation: Orientation [facility] Head: normal to inspection Face and sinus: normal facial exam Mouth: other (Dry oral mucosa) Throat: tonsils normal and uvula midline Eyes Conjunctivae: conjunctivae normal Neck Neck: No lymphadenopathy and No JVD Chest Chest: normal inspection of the chest Resp Effort & Inspection: normal respiratory effort, able to speak in complete sentences, no respiratory distress and no use of accessory muscles Auscultation: clear to auscultation bilaterally, no rales, no rhonchi and no wheezes Cardio Rate: regular rate Rhythm: regular rhythm Heart Sounds: no click, no gallops, no murmurs and no rubs Pulses: normal peripheral pulses GI Other: Abdomen thin, retracted. No palpable masses. Normal bowel sounds. Back/Spine/Pelvis Back: normal to inspection Skin Rashes: no rashes Neuro Other: Generalized weakness. No focal weakness in his face or the extremities. Extrem Other: Thin. No palpable tenderness. No calf edema. Course Course Course Narrative: The patient was obviously dehydrated, IV fluids have been administered. There is a component mental status changes, CT of the head revealed senile changes, no acute findings. Further dysphagia, the neck CT revealed an enlarged thyroid, no masses or obvious cancer formation. Regarding the weight loss in the overall appearance of significant illness, CT the chest abdomen pelvis was obtained. RML pneumonia is found. There is associated effusion, and suggestion of a solid mass. Cancer is suspected. Blood culture obtained. I started the patient on Rocephin Zithromax for the cancer. The patient has been admitted to Dr. Fry. We discussed a possible ultrasound- guided thoracentesis for culture and cytology evaluation. The patient remains quite sleepy. I discussed the clinical findings and the presence of him and his . Orders Ordered: ED Orders 10/04/19 13:55 EKG-12 Lead Stat 10/04/19 14:11 Complete Blood Count AUTO DIFF Stat Comprehensive Metabolic Panel Stat Lipase Stat Troponin & CK Cardiac Panel Stat 10/04/19 14:59 CT chest abd pel wo con Stat CT head/brain wo con Stat CT soft tissue neck wo con Stat 10/04/19 15:40 Urine Microscopic Stat 10/04/19 15:55 THAD Prep Stat THAD Prep Stat 10/04/19 17:22 Blood Culture Stat Lactate (Lactic Acid) Stat Potassium Chloride 20 meq/ (Sodium Chloride) 260 mls @ 130 mls/hr IV NOW ONE Stop: 10/04/19 19:02 Last Admin: 10/04/19 17:53 Dose: 130 mls/hr Documented by: RAMESH Cosigned by: MUSHTAQ Sodium Chloride (Normal Saline 0.9%) 1,000 mls @ 125 mls/hr IV CONT ANGI Discontinued Medications Ceftriaxone Sodium (Rocephin) 1,000 mg IM NOW ONE Stop: 10/04/19 17:04 Last Admin: 10/04/19 17:52 Dose: 1,000 mg Documented by: RAMESH Sodium Chloride (Normal Saline 0.9%) 1,000 mls @ 1,000 mls/hr IV BOLUS ONE Stop: 10/04/19 14:55 Last Infusion: 10/04/19 15:02 Dose: 0 mls/hr Documented by: Admin: 10/04/19 14:10 Dose: 1,000 mls/hr Documented by: RAMESH Sodium Chloride (Normal Saline 0.9%) 1,000 mls @ 1,000 mls/hr IV BOLUS ONE Stop: 10/04/19 16:02 Last Admin: 10/04/19 15:56 Dose: 1,000 mls/hr Documented by: RAMESH Azithromycin 500 mg/ Dextrose 250 mls @ 250 mls/hr IV NOW ONE Stop: 10/04/19 17:04 Last Admin: 10/04/19 17:53 Dose: 250 mls/hr Documented by: RAMESH Vital Signs Vital signs: Vital Signs - 8 hr 10/04/19 13:40 10/04/19 13:41 10/04/19 14:00 Temperature 99.3 F Pulse Rate 99 H 99 H 98 H Respiratory Rate 12 13 33 H Blood Pressure 115/59 L 116/58 L Pulse Oximetry 96 99 97 10/04/19 14:30 10/04/19 15:00 10/04/19 15:30 Temperature Pulse Rate 102 H 96 H 98 H Respiratory Rate Blood Pressure 121/60 108/61 Pulse Oximetry 98 99 98 10/04/19 15:31 10/04/19 16:00 10/04/19 16:30 Temperature Pulse Rate 104 H 95 H 91 H Respiratory Rate 28 H 40 H Blood Pressure 99/57 L 102/60 112/62 Pulse Oximetry 98 98 10/04/19 17:00 Temperature Pulse Rate 94 H Respiratory Rate 29 H Blood Pressure 97/60 Pulse Oximetry 96 MDM - Weakness Lab Data Result diagrams: 10/04/19 14:11 10/04/19 14:11 Labs: Lab Results 10/04/19 10/04/19 10/04/19 Range/Units 14:11 14:11 14:11 WBC 14.6 H (4.5-11.0) X10^3/uL RBC 3.64 L (4.5-5.9) X10^6/uL Hgb 9.9 L (13.5-17.5) g/dL Hct 31.2 L (41-53) % MCV 85.5 (80-100) fL MCH 27.2 (26-34) PG MCHC 31.8 (30-36) % RDW 17.4 H (11.6-14.8) % Plt Count 307 (150-400) X10^3/uL Neut % (Auto) 90.0 H (50-75) % Lymph % (Auto) 2.4 L (25-40) % Hart % (Auto) 6.5 (3-14) % Eos % (Auto) 0.0 L (2-4) % Baso % (Auto) 1.1 (0-2) % Neut # (Auto) 45844 H (4972-7047) /uL Lymph # (Auto) 400 L (7374-8342) /uL Hart # (Auto) 900 (0-900) /uL Eos # (Auto) 0 (0-450) /uL Baso # (Auto) 200 H (0-100) /uL Sodium 138 (137-145) mmol/L Potassium 3.2 L (3.4-5.1) mmol/L Chloride 104 (98-107) mmol/L Carbon Dioxide 30 (22-32) mmol/L BUN 14 (9-20) mg/dL Creatinine 0.57 L (0.66-1.25) mg/dL Estimated GFR > 60.0 (>60) mL/min BUN/Creatinine Ratio 24.6 H (6-22) Glucose 80 (80-110) mg/dL Calcium 8.7 (8.4-10.2) mg/dL Total Bilirubin 0.7 (0.2-1.3) mg/dL AST 14 L (17-59) IU/L ALT 7 (<50) IU/L Alkaline Phosphatase 84 (38-126) U/L Total Creatine Kinase < 20 L (55-170) U/L CK-MB (CK-2) TNP CK-MB (CK-2) Rel Index TNP Troponin I < 0.012 (0.01-0.034) ng/mL Total Protein 5.6 L (6.3-8.2) g/dL Albumin 2.8 L (3.5-5.0) g/dL Globulin 2.8 (1.7-4.1) g/dL Albumin/Globulin Ratio 1.0 (1.0-2.8) Lipase 21 L (23-300) U/L Urine RBC (0-5/HPF) Urine WBC (0-5/HPF) Ur Squamous Epith Cells (0-5/HPF) Urine Bacteria (None) Ur Culture Indicated? 10/04/19 Range/Units 15:40 WBC (4.5-11.0) X10^3/uL RBC (4.5-5.9) X10^6/uL Hgb (13.5-17.5) g/dL Hct (41-53) % MCV (80-100) fL MCH (26-34) PG MCHC (30-36) % RDW (11.6-14.8) % Plt Count (150-400) X10^3/uL Neut % (Auto) (50-75) % Lymph % (Auto) (25-40) % Hart % (Auto) (3-14) % Eos % (Auto) (2-4) % Baso % (Auto) (0-2) % Neut # (Auto) (1872-9053) /uL Lymph # (Auto) (9694-4322) /uL Hart # (Auto) (0-900) /uL Eos # (Auto) (0-450) /uL Baso # (Auto) (0-100) /uL Sodium (137-145) mmol/L Potassium (3.4-5.1) mmol/L Chloride (98-107) mmol/L Carbon Dioxide (22-32) mmol/L BUN (9-20) mg/dL Creatinine (0.66-1.25) mg/dL Estimated GFR (>60) mL/min BUN/Creatinine Ratio (6-22) Glucose (80-110) mg/dL Calcium (8.4-10.2) mg/dL Total Bilirubin (0.2-1.3) mg/dL AST (17-59) IU/L ALT (<50) IU/L Alkaline Phosphatase (38-126) U/L Total Creatine Kinase (55-170) U/L CK-MB (CK-2) CK-MB (CK-2) Rel Index Troponin I (0.01-0.034) ng/mL Total Protein (6.3-8.2) g/dL Albumin (3.5-5.0) g/dL Globulin (1.7-4.1) g/dL Albumin/Globulin Ratio (1.0-2.8) Lipase (23-300) U/L Urine RBC None seen (0-5/HPF) Urine WBC None seen (0-5/HPF) Ur Squamous Epith Cells 1-5 /hpf (0-5/HPF) Urine Bacteria None seen (None) Ur Culture Indicated? Cult not indicated Urine Dip Bedside Urine Glucose 100 mg/dl Bedside Urine Ketone ++ 40 Urine Specific [place] 1.025 Bedside Urine Occult Blood - Negative Bedside Urine pH 5.5 Bedside Urine Protein +/- 15 Bedside Urine Urobilinogen - Negative Bedside Urine Nitrite - Negative Bedside Urine Leukocytes - Negative Esterase Imaging Data CT scan - head: Radiologist Impression: 350 Harjit Pendleton MD Find Patient Imaging - Alex Galan 84 M 1935 ACTIVITY DATE EXAM STATUS AUTHOR 10/04/19 14:59 Signed Brad Terry 10/04/19 14:59 Signed Leif Kraft 10/04/19 14:59 Signed Terry,[place] [address] CT Scan Report Signed Patient: Alex Galan BMR#: [id number] : [id number]:[id number] Age/Sex: 84 / MDate of Service: 10/04/19 Loc: ED Accession Number: [id number] Procedure: CT head/brain wo con Ordering Provider: Harjit Pendleton MD PROCEDURE: CT HEAD/BRAIN WO CON INDICATIONS: Weakness. Decreased responsiveness. TECHNIQUE: Noncontrast 4.5 mm thick angled axial sections acquired from the foramen magnum to the vertex, with coronal and sagittal reformats. For radiation dose reduction, the following was used: automated exposure control, adjustment of mA and/or kV according to patient size. COMPARISON: [facility], CT, CT HEAD/BRAIN WO CON, 06/30/2019, 12:58. FINDINGS: Image quality: Excellent. CSF spaces: Basal cisterns are patent. No extra-axial fluid collections. The ventricles are symmetric in size and shape. There is moderate cerebral volume loss, with resultant ventricular and sulcal prominence. Brain: No intracranial hemorrhage, mass, or mass effect. There are subcortical, periventricular and deep white matter hypodensities consistent with moderate chronic small vessel ischemic changes. A focal hypodensity is also redemonstrated in the right toro radiata suggestive of a prior lacunar infarct. There is intracranial internal carotid artery atherosclerosis. Skull and face: Calvarium and visualized facial bones appear intact, without suspicious lesions. Sinuses: Visualized sinuses and mastoids are clear. IMPRESSION: 1. No acute intracranial abnormality. 2. Moderate chronic white matter small vessel ischemic changes and cerebral volume loss. Dictated by: Brad Terry M.D. on 10/04/2019 at 15:32 Approved by: Brad Terry M.D. on 10/04/2019 at 15:35 CT soft tissue neck:: Radiologist Impression: 350 Harjit Pendleton MD Find Patient Imaging - Alex Galan 84 M 1935 ACTIVITY DATE EXAM STATUS AUTHOR 10/04/19 14:59 Signed Brad Terry 10/04/19 14:59 Signed Leif Kraft 10/04/19 14:59 Signed Terry,[place] [address] CT Scan Report Signed Patient: Alex Galan BMR#: [id number] : [id number]:[id number] Age/Sex: 84 / MDate of Service: 10/04/19 Loc: ED Accession Number: [id number] Procedure: CT soft tissue neck wo con Ordering Provider: Harjit Pendleton MD PROCEDURE: CT SOFT TISSUE NECK WO CON INDICATIONS: Dysphagia. TECHNIQUE: Non-contrast 3.0 mm axial sections acquired from the sella to the aortic arch. Additional oblique axial 3.0 mm sections acquired through the pharynx. 3 mm thick coronal and sagittal reformats were generated. For radiation dose reduction, the following was used: automated exposure control. COMPARISON: [facility], CT, CT CHEST ABD PEL WO CON, 10/04/2019, 15:06. FINDINGS: Image quality: Exam limited by the lack of IV contrast. In particular, the vascular evaluation is highly, as is evaluation of the mucosal and submucosal a CIS. Lymph nodes: No enlarged lymph nodes seen throughout the neck. Vessels: Non-opacified vessels appear normal in caliber. Neck spaces: The oropharynx, nasopharynx, and pharynx demonstrate no obvious unenhanced evidence of mucosal lesions. The vocal cords, false vocal cords, pyriform sinuses, epiglottis, vallecula, and tongue base all appear normal. Extramucosal spaces appear unremarkable. Glands: No unenhanced evidence of parotid or submandibular gland mass. The glands are of normal size and attenuation. The thyroid gland is mildly enlarged. Punctate calcification in the posterior right thyroid lobe. No unenhanced evidence of thyroid mass. IMPRESSION: Mildly enlarged thyroid without evidence of discrete mass. Otherwise grossly unremarkable CT of the neck. Dictated by: Leif Kraft M.D. on 10/04/2019 at 15:33 Approved by: Leif Kraft M.D. on 10/04/2019 at 15:37 CT chest/abdomen/pelvis:: Radiologist Impression: [address] [address] [address] Scan Report Signed Patient: Alex Galan BMR#: [id number] : 6Acct:[id number] Age/Sex: 84 / MDate of Service: 10/04/19 Loc: ED Accession Number: [id number] Procedure: CT chest abd pel wo con Ordering Provider: Harjit Pendleton MD PROCEDURE: CT CHEST ABD PEL WO CON INDICATIONS: Dysphagia. Weight loss.Weakness. TECHNIQUE: After the administration of oral contrast, 5 mm thick sections acquired from the lung apices to the symphysis pubis. 5 mm thick coronal and sagittal reformats ac quired, with additional 7 mm coronal MIP reformats through the lungs. For radiation dose reduction, the following was used: automated exposure control, adjustment of mA and/or kV according to patient size. COMPARISON: [facility], CT, CHEST/ABDOMEN WITHOUT CONTRAST, 01/14/2011, 9:26. [facility], CT, CT ABDOMEN PELVIS W CON, 08/26/2019, 21:35. FINDINGS: Image quality: Evaluation is limited by motion artifact. There is also a beam hardening artifact from patient's upper extremities. CHEST: Lungs and pleura: There is a new small to moderate right pleural effusion with associated compressive atelectasis. New confluent airspace consolidation is demonstrated within the posterior right middle lobe as well as a region of masslike consolidation inferiorly in the anterior right middle lobe. There is mild dependent atelectasis bilaterally Mediastinum: Heart size is enlarged. There is trace pericardial fluid. Coronary arterial vascular calcification demonstrated. There is aneurysmal dilatation of the ascending thoracic aorta measuring up to 4.7 cm, similar in appearance to the prior studies. No mediastinal adenopathy by CT size criteria. Esophagus is normal in caliber. No hiatal hernia. Chest wall: No axillary or supraclavicular adenopathy by size criteria. Thyroid gland is heterogeneous in appearance without a focal dominant nodule. ABDOMEN: Solid organs: Noncontrast evaluation of the liver demonstrates no focal hepatic lesions. Gallbladder appears within normal limits without calcified gallstones. Pancreas is normal in contours without peripancreatic fat stranding or fluid collections. Spleen is normal in size. No adrenal nodules. Kidneys demonstrate no hydronephrosis. Peritoneum and bowel: Small bowel loops are normal in caliber and wall thickness. The appendix is normal in appearance. There is colonic diverticulosis without acute diverticulitis. Postsurgical changes are demonstrated in the rectosigmoid colon compatible with prior partial colectomy. There is moderate residual stool [place] of the rectosigmoid colon with mild wall thickening in the rectum. Findings are suggestive of a mild proctocolitis. No free fluid or air. Nodes and vessels: No retroperitoneal or mesenteric adenopathy by size criteri a. Aorta and inferior vena cava are normal in size. Miscellaneous: No ventral hernias. PELVIS: Genitourinary: Bladder wall thickness is normal. Miscellaneous: No inguinal hernias or adenopathy. Bones: No suspicious bony lesions. No vertebral body compression fractures. IMPRESSION: 1. New consolidation in the right middle lobe including a masslike area of consolidation anteriorly. Given the change compared to the recent abdominal CT, the findings likely represent pneumonia. However, follow-up is recommended to demonstrate resolution as an underlying mass cannot be excluded. 2. New small to moderate right pleural effusion. 3. Postsurgical changes in the rectosigmoid colon redemonstrated with persistent moderate stool distention in the rectum. Mild associated concentric wall thickening may reflect a mild proctocolitis. 4. Aneurysmal dilatation of the thoracic aorta redemonstrated. Dictated by: Brad Terry M.D. on 10/04/2019 at 16:08 Approved by: Brad Terry M.D. on 10/04/2019 at 16:19 ECG Data Attestation: I personally reviewed and interpreted this ECG as follows: (AFib rate 94 beats per minute. No acute ST T wave changes. No acute findings.) Discharge Plan Departure Patient Disposition: Admitted As Inpatient Clinical Impression: Acute dehydration, Cachexia, Acute hypokalemia Pneumonia Qualifiers: Pneumonia type: due to unspecified organism Laterality: right Lung location: middle lobe of lung Qualified Code(s): J18.9 - Pneumonia, unspecified organism Dysphagia Qualifiers: Dysphagia type: pharyngeal phase Qualified Code(s): R13.13 - Dysphagia, pharyngeal phase Atrial fibrillation Qualifiers: Atrial fibrillation type: permanent Qualified Code(s): I48.21 - Permanent atrial fibrillation Admit Date/Time: 10/04/19 17:09 Admit Provider: Leif Healy
[2019-10-04] MEDS: SODIUM CHLORIDE 0.9% 1,000 ML 1000 ML IV ×2 (14:10→15:56)
[2019-10-04 14:20] LABS: Add Manual Diff / Slide Review NO; Basophils Absolute Auto 200 /uL (0-100); Basophils Percent Auto 1.1 % (0-2); Eosinophils Absolute Auto 0 /uL (0-450); Hematocrit 31.2 % (41-53); Hemoglobin 9.9 g/dL (13.5-17.5); Lymphocytes Absolute Auto 400 /uL (1100-4500); Lymphocytes Percent Auto 2.4 % (25-40); Mean Corpuscular HGB Conc 31.8 % (30-36); Mean Corpuscular Hemoglobin 27.2 PG (26-34); Mean Corpuscular Volume 85.5 fL (80-100); Monocytes Absolute Auto 900 /uL (0-900); Monocytes Percent Auto 6.5 % (3-14); Neutrophils Absolute Auto 13200 /uL (1500-7000); Platelet Count 307 X10^3/uL (150-400); Red Blood Cell Count 3.64 X10^6/uL (4.5-5.9); Red Cell Distribution Width 17.4 % (11.6-14.8); White Blood Cell Count 14.6 X10^3/uL (4.5-11.0)
[2019-10-04 14:42] LABS: Alanine Aminotransferase 7 IU/L (<50); Albumin 2.8 g/dL (3.5-5.0); Alkaline Phosphatase 84 U/L (38-126); Aspartate Aminotransferase 14 IU/L (17-59); BUN Creatinine Ratio 24.6 (6-22); Bilirubin Total 0.7 mg/dL (0.2-1.3); Blood Urea Nitrogen 14 mg/dL (9-20); Calcium 8.7 mg/dL (8.4-10.2); Carbon Dioxide 30 mmol/L (22-32); Chloride 104 mmol/L (98-107); Creatine Kinase < 20 U/L (55-170); Estimated Glomerular Filt Rate > 60.0 mL/min (>60); Globulin 2.8 g/dL (1.7-4.1); Glucose 80 mg/dL (80-110); HEMOLYSIS < 15 (0-50); Lipase 21 U/L (23-300); Potassium 3.2 mmol/L (3.4-5.1); Sodium 138 mmol/L (137-145); Total Protein 5.6 g/dL (6.3-8.2)
[2019-10-04 14:53] LABS: Troponin I < 0.012 ng/mL (0.01-0.034)
--- NOTE | 2019-10-04 14:59 | DI.CT.S_ITS ---
PROCEDURE: CT HEAD/BRAIN WO CON INDICATIONS: Weakness. Decreased responsiveness. TECHNIQUE: Noncontrast 4.5 mm thick angled axial sections acquired from the foramen magnum to the vertex, with coronal and sagittal reformats. For radiation dose reduction, the following was used: automated exposure control, adjustment of mA and/or kV according to patient size. COMPARISON: [facility], CT, CT HEAD/BRAIN WO CON, 06/30/2019, 12:58. FINDINGS: Image quality: Excellent. CSF spaces: Basal cisterns are patent. No extra-axial fluid collections. The ventricles are symmetric in size and shape. There is moderate cerebral volume loss, with resultant ventricular and sulcal prominence. Brain: No intracranial hemorrhage, mass, or mass effect. There are subcortical, periventricular and deep white matter hypodensities consistent with moderate chronic small vessel ischemic changes. A focal hypodensity is also redemonstrated in the right toro radiata suggestive of a prior lacunar infarct. There is intracranial internal carotid artery atherosclerosis. Skull and face: Calvarium and visualized facial bones appear intact, without suspicious lesions. Sinuses: Visualized sinuses and mastoids are clear. IMPRESSION: 1. No acute intracranial abnormality. 2. Moderate chronic white matter small vessel ischemic changes and cerebral volume loss. Dictated by: Brad Terry M.D. on 10/04/2019 at 15:32 Approved by: Brad Terry M.D. on 10/04/2019 at 15:35
--- NOTE | 2019-10-04 14:59 | DI.CT.S_ITS ---
PROCEDURE: CT CHEST ABD PEL WO CON INDICATIONS: Dysphagia. Weight loss.Weakness. TECHNIQUE: After the administration of oral contrast, 5 mm thick sections acquired from the lung apices to the symphysis pubis. 5 mm thick coronal and sagittal reformats acquired, with additional 7 mm coronal MIP reformats through the lungs. For radiation dose reduction, the following was used: automated exposure control, adjustment of mA and/or kV according to patient size. COMPARISON: [facility], CT, CHEST/ABDOMEN WITHOUT CONTRAST, 01/14/2011, 9:26. [facility], CT, CT ABDOMEN PELVIS W CON, 08/26/2019, 21:35. FINDINGS: Image quality: Evaluation is limited by motion artifact. There is also a beam hardening artifact from patient's upper extremities. CHEST: Lungs and pleura: There is a new small to moderate right pleural effusion with associated compressive atelectasis. New confluent airspace consolidation is demonstrated within the posterior right middle lobe as well as a region of masslike consolidation inferiorly in the anterior right middle lobe. There is mild dependent atelectasis bilaterally Mediastinum: Heart size is enlarged. There is trace pericardial fluid. Coronary arterial vascular calcification demonstrated. There is aneurysmal dilatation of the ascending thoracic aorta measuring up to 4.7 cm, similar in appearance to the prior studies. No mediastinal adenopathy by CT size criteria. Esophagus is normal in caliber. No hiatal hernia. Chest wall: No axillary or supraclavicular adenopathy by size criteria. Thyroid gland is heterogeneous in appearance without a focal dominant nodule. ABDOMEN: Solid organs: Noncontrast evaluation of the liver demonstrates no focal hepatic lesions. Gallbladder appears within normal limits without calcified gallstones. Pancreas is normal in contours without peripancreatic fat stranding or fluid collections. Spleen is normal in size. No adrenal nodules. Kidneys demonstrate no hydronephrosis. Peritoneum and bowel: Small bowel loops are normal in caliber and wall thickness. The appendix is normal in appearance. There is colonic diverticulosis without acute diverticulitis. Postsurgical changes are demonstrated in the rectosigmoid colon compatible with prior partial colectomy. There is moderate residual stool Dawson of the rectosigmoid colon with mild wall thickening in the rectum. Findings are suggestive of a mild proctocolitis. No free fluid or air. Nodes and vessels: No retroperitoneal or mesenteric adenopathy by size criteria. Aorta and inferior vena cava are normal in size. Miscellaneous: No ventral hernias. PELVIS: Genitourinary: Bladder wall thickness is normal. Miscellaneous: No inguinal hernias or adenopathy. Bones: No suspicious bony lesions. No vertebral body compression fractures. IMPRESSION: 1. New consolidation in the right middle lobe including a masslike area of consolidation anteriorly. Given the change compared to the recent abdominal CT, the findings likely represent pneumonia. However, follow-up is recommended to demonstrate resolution as an underlying mass cannot be excluded. 2. New small to moderate right pleural effusion. 3. Postsurgical changes in the rectosigmoid colon redemonstrated with persistent moderate stool distention in the rectum. Mild associated concentric wall thickening may reflect a mild proctocolitis. 4. Aneurysmal dilatation of the thoracic aorta redemonstrated. Dictated by: Brad Terry M.D. on 10/04/2019 at 16:08 Approved by: Brad Terry M.D. on 10/04/2019 at 16:19
--- NOTE | 2019-10-04 14:59 | DI.CT.S_ITS ---
PROCEDURE: CT SOFT TISSUE NECK WO CON INDICATIONS: Dysphagia. TECHNIQUE: Non-contrast 3.0 mm axial sections acquired from the sella to the aortic arch. Additional oblique axial 3.0 mm sections acquired through the pharynx. 3 mm thick coronal and sagittal reformats were generated. For radiation dose reduction, the following was used: automated exposure control. COMPARISON: [facility], CT, CT CHEST ABD PEL WO CON, 10/04/2019, 15:06. FINDINGS: Image quality: Exam limited by the lack of IV contrast. In particular, the vascular evaluation is highly, as is evaluation of the mucosal and submucosal a CIS. Lymph nodes: No enlarged lymph nodes seen throughout the neck. Vessels: Non-opacified vessels appear normal in caliber. Neck spaces: The oropharynx, nasopharynx, and pharynx demonstrate no obvious unenhanced evidence of mucosal lesions. The vocal cords, false vocal cords, pyriform sinuses, epiglottis, vallecula, and tongue base all appear normal. Extramucosal spaces appear unremarkable. Glands: No unenhanced evidence of parotid or submandibular gland mass. The glands are of normal size and attenuation. The thyroid gland is mildly enlarged. Punctate calcification in the posterior right thyroid lobe. No unenhanced evidence of thyroid mass. IMPRESSION: Mildly enlarged thyroid without evidence of discrete mass. Otherwise grossly unremarkable CT of the neck. Dictated by: Leif Kraft M.D. on 10/04/2019 at 15:33 Approved by: Leif Kraft M.D. on 10/04/2019 at 15:37
[2019-10-04 16:01] LABS: Bacteria Urine None Seen; RBC Urine None Seen (0-5/HPF); WBC Urine None Seen (0-5/HPF)
[2019-10-04 16:14] LABS: Culture Indicated Urine Cult Not Indicated; Squamous Epithelial Cell Urine 1-5 /HPF (0-5/HPF)
--- NOTE | 2019-10-04 17:36 | PM.HP.1 ---
History of Present Illness History of Present Illness Date Patient Seen: 10/04/19 Time Patient Seen: 17:39 Chief complaint: Failure to Thrive Narrative: 84-year-old male admitted via the emergency department because of weakness. Has been going downhill for several weeks. Has had weight loss inability to eat or drink much of anything and become increasingly weak. Was actually brought in by spouse by EMS thinking perhaps patient had recurrent thrush which was affecting his ability to eat Workup in the ER was mostly unremarkable with the following exceptions. He had an elevated white blood cell count, however imaging of his head neck and abdomen were essentially unremarkable except for known postoperative changes. There was a new finding of a large masslike structure in the right anterior chest possibly pneumonia verses malignancy with small effusion. Patient not complaining of any respiratory symptoms however per ER physician (unable to obtain much of a history from patient himself and was unable to locate family members for additional information) He was admitted for IV antibiotics and further evaluation Patient does have a history apparently of right-sided lung cancer dating back to the . Further details are not available at this time. Patient History Medical History Ankle pain (Chronic) Anxiety (Acute) Aortic aneurysm (Chronic) Atrial fibrillation (Chronic) Cancer of parotid gland (Resolved) Chronic back pain (Chronic) Chronic cough (Chronic) Colorectal cancer (Resolved) Foot pain (Chronic) Head and neck cancer (Resolved) Hx of bronchogenic malignancy (Resolved 07/27/13) Hyperlipidemia (Chronic) Hypertension (Chronic) Lumbar spine pain (Chronic) Lung cancer (Resolved) Malignant neoplasm of colon, unspecified (Resolved 07/27/13) Mid back pain (Chronic) Osteopenia (Chronic 2014) Positive PPD (Resolved) Salivary gland cancer (Resolved) TIA (transient ischemic attack) (Resolved) Surgical History Anesthesia (Resolved) History of head, eyes, ears, nose, and throat (HEENT) surgery (Resolved) History of sinus surgery (Resolved) History of surgery of head (Resolved) History of throat surgery (Resolved) Status post cervical spinal fusion (Resolved) Status post colectomy (Resolved) Status post lumbar laminectomy (Resolved) Family & Social History Family History Brother Heart disease Mother Breast cancer Heart disease Father Heart disease Social History: household members spouse Safety & Behavioral: Feels Safe in Current Yes Environment Tobacco & Substance use: Smoking Status Former smoker alcohol intake current alcohol intake frequency 0-2 drinks per day Substance Use Type does not use Meds Home Medications and Allergies Home Medications Medication Instructions Recorded Confirmed Type cholecalciferol (vitamin D3) 1,000 unit PO QDAY #0 01/20/17 10/04/19 History [Vitamin D3] digoxin 125 mcg (0.125 mg) tablet 125 mcg PO QDAY #90 tab 11/19/18 10/04/19 Rx ipratropium bromide 42 mcg (0.06 2 spray NASAL QID #15 ml 01/14/19 10/04/19 Rx %) nasal spray pantoprazole 40 mg tablet,delayed 40 mg PO BID #180 tab 08/12/19 10/04/19 Rx release donepezil 10 mg tablet 10 mg PO BID 08/23/19 10/04/19 History prednisone 10 mg PO BID 08/26/19 10/04/19 History nystatin 100,000 unit/mL oral 5 ml PO QID 10 Days #200 ml 09/26/19 10/04/19 Rx suspension acetaminophen 500 mg PO BID 10/04/19 10/04/19 History mirtazapine 15 mg PO BEDTIME 10/04/19 10/04/19 History tamsulosin [Flomax] 0.4 mg PO BEDTIME 10/04/19 10/04/19 History Allergies Allergy/AdvReac Type Severity Reaction Status Date / Time iodine [IODINE] Allergy Mild FACIAL Verified 10/04/19 13:45 SWELLING Review of Systems Review of Systems Narrative: Unable to obtain accurate review of systems from patient due to his inability to really respond to questions appropriately ROS: Yes unobtainable due to mental condition Exam Vital Signs (past 8 hours): - 10/04/19 13:40 10/04/19 13:41 10/04/19 14:00 Temperature 99.3 F Pulse Rate 99 H 99 H 98 H Respiratory Rate 12 13 33 H Blood Pressure 115/59 L 116/58 L Pulse Oximetry 96 99 97 10/04/19 14:30 10/04/19 15:00 10/04/19 15:30 Temperature Pulse Rate 102 H 96 H 98 H Respiratory Rate Blood Pressure 121/60 108/61 Pulse Oximetry 98 99 98 10/04/19 15:31 10/04/19 16:00 10/04/19 16:30 Temperature Pulse Rate 104 H 95 H 91 H Respiratory Rate 28 H 40 H Blood Pressure 99/57 L 102/60 112/62 Pulse Oximetry 98 98 10/04/19 17:00 Temperature Pulse Rate 94 H Respiratory Rate 29 H Blood Pressure 97/60 Pulse Oximetry 96 Oxygen Delivery Method Room Air Narrative Exam Narrative: Elderly male looks chronically ill and somewhat emaciated HEENT-unremarkable Lungs-clear no wheezes or crackles Heart-irregularly regular with grade 3/6 systolic ejection murmur consistent with aortic stenosis along the right sternal border without radiation Abdomen-benign Extremities-no cyanosis or clubbing Objective Labs Result Diagrams: 10/04/19 14:11 10/04/19 14:11 Labs: Laboratory Results - last 24 hr 10/04/19 10/04/19 10/04/19 14:11 14:11 14:11 WBC 14.6 H RBC 3.64 L Hgb 9.9 L Hct 31.2 L MCV 85.5 MCH 27.2 MCHC 31.8 RDW 17.4 H Plt Count 307 Neut % (Auto) 90.0 H Lymph % (Auto) 2.4 L [place] % (Auto) 6.5 Eos % (Auto) 0.0 L Baso % (Auto) 1.1 Neut # (Auto) 50468 H Lymph # (Auto) 400 L [place] # (Auto) 900 Eos # (Auto) 0 Baso # (Auto) 200 H Sodium 138 Potassium 3.2 L Chloride 104 Carbon Dioxide 30 BUN 14 Creatinine 0.57 L Estimated GFR > 60.0 BUN/Creatinine Ratio 24.6 H Glucose 80 Calcium 8.7 Total Bilirubin 0.7 AST 14 L ALT 7 Alkaline Phosphatase 84 Total Creatine Kinase < 20 L CK-MB (CK-2) TNP CK-MB (CK-2) Rel Index TNP Troponin I < 0.012 Total Protein 5.6 L Albumin 2.8 L Globulin 2.8 Albumin/Globulin Ratio 1.0 Lipase 21 L Urine RBC Urine WBC Ur Squamous Epith Cells Urine Bacteria Ur Culture Indicated? 10/04/19 15:40 WBC RBC Hgb Hct MCV MCH MCHC RDW Plt Count Neut % (Auto) Lymph % (Auto) [place] % (Auto) Eos % (Auto) Baso % (Auto) Neut # (Auto) Lymph # (Auto) [place] # (Auto) Eos # (Auto) Baso # (Auto) Sodium Potassium Chloride Carbon Dioxide BUN Creatinine Estimated GFR BUN/Creatinine Ratio Glucose Calcium Total Bilirubin AST ALT Alkaline Phosphatase Total Creatine Kinase CK-MB (CK-2) CK-MB (CK-2) Rel Index Troponin I Total Protein Albumin Globulin Albumin/Globulin Ratio Lipase Urine RBC None seen Urine WBC None seen Ur Squamous Epith Cells 1-5 /hpf Urine Bacteria None seen Ur Culture Indicated? Cult not indicated Assessment & Plan Assessment & Plan narrative: 1. Right-sided pneumonia verses bronchogenic carcinoma-will treat with IV antibiotics and monitor for resolution. Does have an elevated white count which would be consistent with more of an infectious process. Depending on family's wishes and or long-term plan of care may consider trying to obtain sample from his pleural effusion for more definitive diagnosis. 2. Weight loss-probably secondary to poor intake which may well be secondary to problem 1. Above. He would benefit from nutritional assistance as well as possibly speech therapy. 3. Atrial fibrillation-continue patient's usual meds. Appears to be adequately rate controlled at this time 4. Hypokalemia-replaced with IV potassium in the ER and continue that IV fluids for now 5. Continue patient's other usual medications. I have held his Aricept due to interactions with his antibiotic therapy. 6. Code status-patient clearly requested no code status upon admission in June for a GI bleed. Unable to clearly elucidate at this time but will continue as a no code status for now. There are notes in the chart that patient's family was seeking hospice care and so that seems entirely appropriate 7. VTE prophylaxis-given a potential need for invasive procedure to help with diagnosis will hold off on anticoagulation but use SCDs at this time Patient deserves inpatient hospitalization will clearly be in the hospital greater than 48 hours including 2 separate midnights due to his weakness his weight loss and his significant pneumonia/lung cancer as above. Dr. Healy to assume care tomorrow
[2019-10-04 17:42] LABS: Lactate (Lactic Acid) 0.7 mmol/L (0.7-2.1)
[2019-10-04] MEDS: cefTRIAXone 2,000 MG VIAL 1000 MG IM (17:52)
[2019-10-04] MEDS: POTASSIUM CHLORIDE 20 MEQ in SODIUM CHLORIDE 0.9% 250 ML 130 ML IV (17:53)
[2019-10-04] MEDS: AZITHROMYCIN 500 MG in DEXTROSE 5% IN WATER 250 ML IV (17:53)
[2019-10-04 18:03] LABS: INR 1.3 (0.9-1.3); Prothrombin Time 15.4 SECONDS (10.1-12.7)
[2019-10-04 18:05] LABS: PTT Partial Thromboplastin Tim 33 SECONDS (26.4-36.2)
[2019-10-04 18:17] LABS: Digoxin 0.6 ng/mL (0.8-2.0)
[2019-10-04 19:03] LABS: COVID19 -Nasal RAPID Negative (Negative)
--- NOTE | 2019-10-04 20:31 | PC.NURSE ---
Pt arrived on unit from ER via stretcher at approx 1840. VSS, A and O x 2 self, spouse and somewhat of situation. He has lost 60 lbs in the last 2 months per spouse 2/2 oral thrush and lethargy. He has had two small very loose stools in the 2 hours he has been here. He is sleepy. He is sometimes confused when he wakes up. He is in pain (wincing and moaning) when moved. Skin is fragile and bruised. Spouse rode in ambulance with pt from [place] and was unable to get a cab home so is spending the noc.
[2019-10-04] MEDS: PANTOPRAZOLE 40 MG TABLET PO (22:04)
[2019-10-04] MEDS: predniSONE 10 MG TABLET PO (22:04)
[2019-10-04 23:28] LABS: Clostridium Difficile Tox PCR Negative for C. diff
[2019-10-05] VITALS (7 sets, daily range): BP systolic 99–123; BP diastolic 54–70; PULSE 89–102; RESP 18–24; TEMP 36.6–37.4; O2SAT 92–96
[2019-10-05] MEDS: CEFTRIAXONE 1 GM/50 ML FROZ.PIGGY IV ×2 (05:40→16:59)
[2019-10-05] MEDS: SODIUM CHLORIDE 0.9% FLUSH 10 ML IV ×3 (05:41→20:58)
[2019-10-05 06:11] LABS: Add Manual Diff / Slide Review NO; Basophils Absolute Auto 0 /uL (0-100); Basophils Percent Auto 0.1 % (0-2); Eosinophils Absolute Auto 0 /uL (0-450); Hematocrit 32.2 % (41-53); Hemoglobin 10.5 g/dL (13.5-17.5); Lymphocytes Absolute Auto 300 /uL (1100-4500); Lymphocytes Percent Auto 1.7 % (25-40); Mean Corpuscular HGB Conc 32.8 % (30-36); Mean Corpuscular Hemoglobin 28.1 PG (26-34); Mean Corpuscular Volume 85.6 fL (80-100); Monocytes Absolute Auto 500 /uL (0-900); Monocytes Percent Auto 2.8 % (3-14); Neutrophils Absolute Auto 16400 /uL (1500-7000); Neutrophils Percent Auto 95.4 % (50-75); Platelet Count 314 X10^3/uL (150-400); Red Blood Cell Count 3.76 X10^6/uL (4.5-5.9); Red Cell Distribution Width 17.2 % (11.6-14.8); White Blood Cell Count 17.2 X10^3/uL (4.5-11.0)
[2019-10-05 06:19] LABS: BUN Creatinine Ratio 23.5 (6-22); Blood Urea Nitrogen 12 mg/dL (9-20); Calcium 8.4 mg/dL (8.4-10.2); Carbon Dioxide 25 mmol/L (22-32); Chloride 106 mmol/L (98-107); Estimated Glomerular Filt Rate > 60.0 mL/min (>60); Glucose 84 mg/dL (80-110); HEMOLYSIS < 15 (0-50); Potassium 3.1 mmol/L (3.4-5.1); Sodium 138 mmol/L (137-145)
--- NOTE | 2019-10-05 07:48 | PM.PN.1 ---
Subjective Subjective Date Patient Seen: 10/05/19 Time Patient Seen: 07:48 Interval history: Patient seen and evaluated this morning. Reviewed care with nurse. Because he has had some diarrhea overnight. Patient does have some chronic diarrhea. He is arousable this morning. Says he is tired. Says he does not feel well. I estimate if I could do anything to help. Patient says ?I want the pill?. Patient is a longstanding do not resuscitate. Over the last 2 years he has had a general progressive decline in his health and more specifically in the last 6 months. Has a hard time keeping weight on because of his chronic diarrhea and he has had a slow decline of his muscle mass and strength in weight. His current complaints are weakness. Inability to eat. No energy. Not complaining of cough. He says it is hard time swallowing. And has some ongoing throat pain and discomfort which is been an issue with him. Says he does not want to eat he has had a couple of different bouts of treatment for thrush. Exam Vital Signs (past 8 hours): - 10/05/19 02:00 10/05/19 04:25 Temperature 98.7 F 97.8 F Pulse Rate 89 90 Respiratory Rate 18 18 Blood Pressure 99/54 L 104/60 Pulse Oximetry 94 96 Oxygen Delivery Method Room Air Oxygen Flow Rate 0 Narrative Exam Narrative: Gen.: Alert arousable reliable historian. He has temporal wasting. He is quite cachectic and malnourished looking HEENT: Pupils equal round and reactive or mucosa is quite dry. Neck is supple Cardio: Regular rate and rhythm Respiratory: Normal respiratory effort. Lung crackles present Abdomen: Soft nontender no rebound or guarding no liver spleen enlargement no appreciable hernias Extremities: Generalized weakness to his lower extremities. Neurologic: Grossly intact. Objective Labs Result Diagrams: 10/05/19 05:50 10/05/19 05:50 Labs: Laboratory Results - last 24 hr 10/04/19 10/04/19 10/04/19 14:11 14:11 14:11 WBC 14.6 H RBC 3.64 L Hgb 9.9 L Hct 31.2 L MCV 85.5 MCH 27.2 MCHC 31.8 RDW 17.4 H Plt Count 307 Neut % (Auto) 90.0 H Lymph % (Auto) 2.[address] [place] % (Auto) 6.5 Eos % (Auto) 0.0 L Baso % (Auto) 1.1 Neut # (Auto) 05419 H Lymph # (Auto) [address] [place] # (Auto) 900 Eos # (Auto) 0 Baso # (Auto) 200 H PT INR APTT Sodium 138 Potassium 3.2 L Chloride 104 Carbon Dioxide 30 BUN 14 Creatinine 0.57 L Estimated GFR > 60.0 BUN/Creatinine Ratio 24.6 H Glucose 80 Lactate Calcium 8.7 Total Bilirubin 0.7 AST 14 L ALT 7 Alkaline Phosphatase 84 Total Creatine Kinase < 20 L CK-MB (CK-2) TNP CK-MB (CK-2) Rel Index TNP Troponin I < 0.012 Total Protein 5.6 L Albumin 2.8 L Globulin 2.8 Albumin/Globulin Ratio 1.0 Lipase 21 L Urine RBC Urine WBC Ur Squamous Epith Cells Urine Bacteria Ur Culture Indicated? Digoxin C. difficile Tox (PCR) COVID-19 PCR 10/04/19 10/04/19 10/04/19 14:11 14:11 15:40 WBC RBC Hgb Hct MCV MCH MCHC RDW Plt Count Neut % (Auto) Lymph % (Auto) [place] % (Auto) Eos % (Auto) Baso % (Auto) Neut # (Auto) Lymph # (Auto) [place] # (Auto) Eos # (Auto) Baso # (Auto) PT 15.4 H INR 1.3 APTT 33 D Sodium Potassium Chloride Carbon Dioxide BUN Creatinine Estimated GFR BUN/Creatinine Ratio Glucose Lactate Calcium Total Bilirubin AST ALT Alkaline Phosphatase Total Creatine Kinase CK-MB (CK-2) CK-MB (CK-2) Rel Index Troponin I Total Protein Albumin Globulin Albumin/Globulin Ratio Lipase Urine RBC None seen Urine WBC None seen Ur Squamous Epith Cells 1-5 /hpf Urine Bacteria None seen Ur Culture Indicated? Cult not indicated Digoxin 0.6 L C. difficile Tox (PCR) COVID-19 PCR 10/04/19 10/04/19 10/04/19 17:22 18:03 21:15 WBC RBC Hgb Hct MCV MCH MCHC RDW Plt Count Neut % (Auto) Lymph % (Auto) [place] % (Auto) Eos % (Auto) Baso % (Auto) Neut # (Auto) Lymph # (Auto) [place] # (Auto) Eos # (Auto) Baso # (Auto) PT INR APTT Sodium Potassium Chloride Carbon Dioxide BUN Creatinine Estimated GFR BUN/Creatinine Ratio Glucose Lactate 0.7 Calcium Total Bilirubin AST ALT Alkaline Phosphatase Total Creatine Kinase CK-MB (CK-2) CK-MB (CK-2) Rel Index Troponin I Total Protein Albumin Globulin Albumin/Globulin Ratio Lipase Urine RBC Urine WBC Ur Squamous Epith Cells Urine Bacteria Ur Culture Indicated? Digoxin C. difficile Tox (PCR) Negative for c. diff COVID-19 PCR Negative 10/05/19 10/05/19 05:50 05:50 WBC 17.2 H RBC 3.76 L Hgb 10.5 L Hct 32.2 L MCV 85.6 MCH 28.1 MCHC 32.8 RDW 17.2 H Plt Count 314 Neut % (Auto) 95.4 H Lymph % (Auto) 1.[address] % (Auto) 2.8 L Eos % (Auto) 0.0 L Baso % (Auto) 0.1 Neut # (Auto) 34965 H Lymph # (Auto) [address] [place] # (Auto) 500 Eos # (Auto) 0 Baso # (Auto) 0 PT INR APTT Sodium 138 Potassium 3.1 L Chloride 106 Carbon Dioxide 25 BUN 12 Creatinine 0.51 L Estimated GFR > 60.0 BUN/Creatinine Ratio 23.5 H Glucose 84 Lactate Calcium 8.4 Total Bilirubin AST ALT Alkaline Phosphatase Total Creatine Kinase CK-MB (CK-2) CK-MB (CK-2) Rel Index Troponin I Total Protein Albumin Globulin Albumin/Globulin Ratio Lipase Urine RBC Urine WBC Ur Squamous Epith Cells Urine Bacteria Ur Culture Indicated? Digoxin C. difficile Tox (PCR) COVID-19 PCR Assessment & Plan Assessment & Plan narrative: Right middle lobe Pneumonia acute community-acquired versus aspiration versus postobstructive due to mass tumor. He will be placed on appropriate antibiotic therapy covering staph strep and Gram-negative. Ceftriaxone and Zithromax. It also could be a postobstructive pneumonia. There was concern that there was a mass tumor in the lung as wel. This was not visualized on previous CT scan of the abdomen a few months ago though. On discussion with patient this morning. Patient does not want any interventions as far as thoracentesis in fact he says he would prefer to be made comfortable. As he says he thinks it is is time to go. Will discussion with his as he is pretty clear about his current healthcare wishes and directives. After discussion with his we will decide about further care plans at this point will continue treating pneumonia. He is not on oxygen. And continue with IV fluids. Acute hypokalemia. Continue with IV potassium replacement. Mild nutrition moderate to severe. Patient is not taking any p.o.. His BMI is 18 is weight is 136. Is having a hard time swallowing. Continue with IV fluid resource management. His significant malnourishment is making it very difficult to treat his underlying health conditions. Chronic diarrhea. Patient has had chronic diarrhea for the last few years. 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 He has had previous endoscopies with evaluation for this. Will continue with Imodium. But has odor is or other qualities we may want to send a stool culture for C diff to rule out this although I think this is unlikely. Dysphagia and history of oral thrush. Patient is not eating well at all. He is not really complaining of throat pain at this time he says he just can not eat and swallow. I think this is due to his mild nourishment and significant decline in his health. Atrial fibrillation. Heart rates well controlled. Previously on anticoagulation. Recent admission to the hospital with gastrointestinal bleed his anticoagulation has been held. He is at high risk of stroke. He is on digoxin. This is been helpful in controlling his heart rate. His digoxin level was drawn today which looks good. Acute Anemia recent hospital admission for GI bleed. Anticoagulation held. His numbers are improving. Disposition and plan. Patient's wishes at this time or to be made comfortable. Does not want any further major intervention he is okay with antibiotics. He set a significant decline in his health. Questionable concerned about cancer in his right lung versus infection versus aspiration. After discussion with patient. He would like to be a at home with hospice. I will have a phone consultation with his today. Help direct our further care plans. Quality VTE Deep Vein Thrombosis/Pulmonary Embolism Present on Admission: No
[2019-10-05] MEDS: POTASSIUM CHLORIDE 40 MEQ in SODIUM CHLORIDE 0.9% 500 ML 130 ML IV (10:16)
[2019-10-05] MEDS: PANTOPRAZOLE 40 MG TABLET PO ×2 (10:16→21:06)
[2019-10-05] MEDS: TAMSULOSIN 0.4 MG CAPSULE PO (10:17)
[2019-10-05] MEDS: predniSONE 10 MG TABLET PO ×2 (10:17→21:06)
[2019-10-05] MEDS: DIGOXIN 0.125 MG TABLET PO (10:27)
--- NOTE | 2019-10-05 11:00 | CM.DANOTE ---
Addendum entered by ABIGAIL Preciado 10/05/19 14:32: ADD: Return call from [facility] stating they can accept the pt and open him to service on 10/09/19 around 1400. No phone Info Visit yet. Dr. Healy PCP met bedside with pt and spouse today around 1245 and had lengthy discussion regarding Comfort Care/Hospice and pt and spouse still agreeable with no medical intervention beyond current IV-Abx and being Comfort Care. MD feels that Hospice likely needs to be on board before pt can d/c. Updated him on when [facility] can open and requests SW to call [facility] to determine if they can open sooner. SW made referral to [facility] and called with update inquiring if they have availability before Sun 10/08. They will review and look at their schedule and call SW back. SW met bedside with pt and spouse and explained role and spouse quite tearful but confirms that preference is home and not a facility and further discussed that Hospice does not provide 24/7 care and spouse aware from her own mother being on Hospice and spouse states that she personally has PP CG through [facility] and can get caregiver set up for pt at home as well as we discussed need for toileting and ambulation support. Spouse agreeable with Hospice Info Visit on her home phone and referrals to both [facility] and [facility]. Plan: SW to follow closely with [facility] and [facility] to determine which can open sooner. SW had called [facility] back asking them to call spouse at home for Info Visit to discuss their services and supports with spouse. BF Original Note: Patient is an 84 year old male who was admitted on 10/04/19 for Failure to Thrive. Pt has MCR and [employer] for insurance and his PCP is Dr. Healy. EMR was reviewed. Per MD, pt with possible pneumonia vs malignancy and pt clearing stating his wishes to be comfortable and not pursue any medical intervention at this time beyond IV-Abx and interested in Hospice. MD plans to contact spouse today to update and discuss further. SW met bedside with pt and RN and explained role and pt confirms he lives at home with his spouse in [place] and his children and family live in [place] and [place]. Pt has continued to decline in health over the past few months and states his main focus is to be free of pain. SW and RN discussed briefly Hospice services and pt is interested in a Hospice Info Visit when his spouse arrives bedside today around lunchtime to gather further information on Hospice services and coverage to determine d/c plans. SW attempted to call spouse to determine her time of arrival and left ms. SW called [facility] and they have openings available for new patients on Fri, Thu and next week and willing to review. They still only provide phone Info Visit and not in person when patients are off of [facility] at the hospital. PARKER Villanueva faxed new referral to [facility]. SW called [facility] and confirmed they have openings but typically about 3 days out and they are still only doing Phone Info Visits due to COVID 19 precautions. No referral made yet until SW can touch base with spouse. Plan: SW to follow for further coordination to set up Hospice Info Visit via phone with spouse and pt and determine if family available to participate as well. [facility] reviewing. ABIGAIL Preciado Discharge Planning/Care Management Advanced directive, confirm from FAMILY Start: 10/04/19 19:17 Freq: Q24H Status: Active Protocol: Document 10/04/19 19:17 SL (Rec: 10/04/19 19:39 SL [id number]) Advance Directive, confirm on record Time 19:39 Person contacted spouse Copy received No CM Discharge Assessment Start: 10/05/19 10:58 Freq: Status: Active Protocol: Document 10/05/19 10:58 BF (Rec: 10/05/19 11:00 BF [id number]) Discharge Planning Assessment Assigned Employee Development Specialist ABIGAIL Olivares Advance Directives? Yes Advance Directives on File No History Provided By Patient,Family Member,Medical Record Has Patient been admitted in last 30 No days? Prior Living Arrangements House Household Members spouse Type of transporation used prior to Relies on Others admit Independent with ADL's No Is patient alert and oriented? Yes Needs Assistance With Meal Prep,Managing Medications ,Home Chores / Shopping Caregiver for Another No Comment Made Hospice [facility] referral for discharge planning Barriers to Discharge No Discharge Plan Hospice Transportation Arrangement Family to likely provide transport if pt safe for home Referrals Initiated Other Additional Comment [facility] referral made Review Status In Process Please Provide Date Initial DC 10/05/19 Assessment Was Performed Next Review Type Continued Stay Review
--- NOTE | 2019-10-05 11:10 | ST.IPCSEOM ---
Visit Care Team Role Provider Type Harjit Pendleton MD Emergency Provider Physician Referring Provider Specialty: Emergency Medicine Address: [address] [place] [address], [address] Email: [email or web address] Leif Healy MD Attending Provider Physician Other Providers Primary Care Provider Specialty: Family Practice Address: [address] [place] [address], [address] Email: [email or web address] Tony Fry MD Admit Provider Physician Specialty: Internal Medicine Address: [address] [place] [address], [address] [place] [address], [id number] Email: [email or web address] Past Medical History (Last Reviewed 10/04/19 @ 17:42 by Tony Fry MD) Ankle pain (Chronic Medical) Anxiety (Acute Medical) Aortic aneurysm (Chronic Medical) Atrial fibrillation (Chronic Medical) Cancer of parotid gland (Resolved Medical) Chronic back pain (Chronic Medical) Chronic cough (Chronic Medical) Colorectal cancer (Resolved Medical) Foot pain (Chronic Medical) Head and neck cancer (Resolved Medical) Hx of bronchogenic malignancy (Resolved Medical 07/27/13) Hyperlipidemia (Chronic Medical) Hypertension (Chronic Medical) Lumbar spine pain (Chronic Medical) Lung cancer (Resolved Medical) Malignant neoplasm of colon, unspecified (Resolved Medical 07/27/13) Mid back pain (Chronic Medical) Osteopenia (Chronic Medical 2014) 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) TIA (transient ischemic attack) (Resolved Medical) Speech-Language Pathology Swallow Evaluation PHARMACY BENEFITS COORDINATOR Clinical Swallow Evaluation Start: 10/05/19 10:43 Freq: Status: Active Protocol: Document 10/05/19 10:43 MG (Rec: 10/05/19 11:10 MG [id number]) Clinical Swallow Evaluation Session Time Visit Start Time 09:45 Visit Stop Time 10:35 Total Visit Minutes 50 Visit Information Visit Number 1 Setting Assessment Location Acute Care Visit Type Note Type Initial Evaluation Next Note Type Next Note Type Treatment Note Patient Information Identification Type Name,ID Wristband History 84-year-old male admitted via the emergency department because of weakness. Has been going downhill for several weeks. Has had weight loss, inability to eat or drink much of anything, and become increasingly weak. Was actually brought in by spouse by EMS thinking perhaps patient had recurrent thrush which was affecting his ability to eat. Workup in the ER was mostly unremarkable with the following exceptions. He had an elevated white blood cell count, however imaging of his head neck and abdomen were essentially unremarkable except for known postoperative changes. There was a new finding of a large masslike structure in the right anterior chest possibly pneumonia verses malignancy with small effusion. Patient not complaining of any respiratory symptoms. He was admitted for IV antibiotics and further evaluation. Patient does have a history apparently of right-sided lung cancer dating back to the . Has a hard time keeping weight on because of his chronic diarrhea and he has had a slow decline of his muscle mass and strength in weight. His current complaints are weakness. Inability to eat. No energy. Not complaining of cough. He says he has a hard time swallowing . And has some ongoing throat pain and discomfort which is been an issue with him. Says he does not want to eat he has had a couple of different bouts of treatment for thrush. Per progress note, pt's wishes at this time or to be made comfortable. Pt reported to want to be discharged home with hospice care. Subjective Observations Pt was found sitting upright in bed and asleep. Was arousable and agreed to an evaluation by the PHARMACY BENEFITS COORDINATOR. Pt appeared tired and reported he did not sleep well last night . Pt reported his mouth was dry and he did not eat much breakfast this AM. Pt reports pain in back and shoulder area . PHARMACY BENEFITS COORDINATOR administered the Eating Assessment Tool (EAT-10) to get further information from the pt. Pt scored a 36 on the protocol, indicating severe swallowing problems that are impacting daily life. All but one question the pt reported a score of 4, or severe problem . Evaluation Liquids Trialed Ice chips,Thin,[place] Solids Trialed Puree,Dysphagia Mechanical, Mechanical Soft,Regular Administration Type Tea Spoon,Cup Single Sip, Controlled Cup Sip,Straw,Self- Feeding,Dependent Feeding Oral Impairment Moderately Impaired Oral Strategies Upright at 90 degrees,Double Swallow,Lingual Sweep, Controlled Bite/Sip Size, Alternate Liquids/Solids Oral Phase Comments Formal OME was done with pt. Pt has moderate oral weakness . Lip pucker, lip retraction, and lip seal were all impacted and noted to be very weak. Tongue protrusion, retraction, and lateral movements were also noted to be very weak. Pt has poor dentition; all natural teeth. Upon oral cavity examination, no other abnormalities noted. Pt does not has tonsils. Pt appeared to have prolonged mastication of solid foods that were more difficult in texture (e.g., sandwich). Pt reported dry, harder to eat foods are difficult and he avoids eating things like that at home (e.g ., crackers). Pharyngeal Impairment Moderately Impaired Pharyngeal Strategies Sitting Upright (90 deg), Double Swallow,Effortful Swallow,Small Bites and Sips, Alternate Liquids/Solids Pharyngeal Phase Comments Laryngeal palpation indicates reduced anterior movement of the hyoid bone and reduced hyolaryngeal elevation. Upon single sips of thin liquid from cup as pt would normally drink, delayed throat clearing was noted. PHARMACY BENEFITS COORDINATOR re- administered and requested pt to take a smaller sip and use double swallow strategy. Pt was successful and no overt s/ sx of aspiration was noted. Pt needed reminders throughout evaluation to use double swallow strategy. When not reminded, he was sporadic at using it. Pt as well needed reminders to take smaller sips of thin liquids. On trials of puree, dysphagia mechanical, and mechanical soft pt did not show overt s/sx of aspiration . PHARMACY BENEFITS COORDINATOR oberved pt take medication in carrier with no overt s/sx of aspiration. On regular consistency of solid food, pt had a delayed throat clear. Pt reported he does not usually consume dry, hard to eat textures as things get stuck in his teeth. Pt independently used lingual sweep between bites of solid food textures. Findings Dysphagia Type Oropharyngeal dysphagia Rehabilitation Potential Fair Impressions Pt presents with oropharyngeal dysphagia at this time as noted by overall weakness of the oral and pharyngeal mechanism. Pt can tolerate small, single sips of thin liquid with using a double swallow and effortful swallow technique. Softer foods are easier for the pt to consume safely. Pt may require frequent reminders to use strategies to remain safe while eating/drinking. Prior to leaving the room, PHARMACY BENEFITS COORDINATOR went over recommendations with pt, who was agreeable to trying strategies. PHARMACY BENEFITS COORDINATOR left safe swallow precautions in his room . Pt did not have any further questions at that time for the PHARMACY BENEFITS COORDINATOR. Diet Recommendations Liquids Order Thin Diet Order Mechanical Soft Medication Recommendations As Tolerated,Whole in Carrier Additional Dietary Needs Single Sips,Controlled Sips,No Straws,Reminders to Use Strategies Aspiration Precautions Recommended Precautions Upright at 90 Degrees, Alternate Liquids/Solids,Small Bites/Sips,Effortful Swallow, Double Swallow Treatment Plan Placement Recommendations after Home with Hospice Discharge Appropriate for Therapy Yes Therapy Recommendations PHARMACY BENEFITS COORDINATOR team to follow up to monitor pt's tolerance for current diet, if he is consuming more food, and modifications and usage of safe swallowing strategies. Dysphagia Goals Pt will tolerate least restrictive diet and show no overt s/sx of aspiration. Pt will utilize safe swallowing strategies with minimal prompting.
--- NOTE | 2019-10-05 12:29 | PT-IP ANOTE ---
Spoke to JOVITA Olivares that Dr. Healy will have a meeting with pt and spouse to discuss hospice care. Will get updates after if PT still needed.
--- NOTE | 2019-10-05 16:25 | PT-IP ANOTE ---
Checked in with pt this pm but pt was sleeping soundly who just went through repositioning in bed and pericare with LOG HAUL OPERATOR. Per EMR, Dr. Healy PCP met bedside with pt and spouse today around 1245 and had lengthy discussion regarding Comfort Care/Hospice and pt and spouse still agreeable with no medical intervention beyond current IV-Abx and being Comfort Care. Will check with care team again tomorrow for further info.
[2019-10-05] MEDS: AZITHROMYCIN 500 MG in DEXTROSE 5% IN WATER 250 ML IV (16:59)
[2019-10-05] MEDS: HYDROCODONE/ACET 5/325 TABLET 1 TAB PO (17:44)
[2019-10-06] VITALS: O2SAT 92
[2019-10-06] MEDS: SODIUM CHLORIDE 0.9% FLUSH 10 ML IV ×2 (05:28→08:35)
[2019-10-06] MEDS: CEFTRIAXONE 1 GM/50 ML FROZ.PIGGY IV ×2 (05:28→16:16)
[2019-10-06 05:59] LABS: Add Manual Diff / Slide Review NO; Basophils Absolute Auto 0 /uL (0-100); Basophils Percent Auto 0.2 % (0-2); Eosinophils Absolute Auto 0 /uL (0-450); Hematocrit 32.2 % (41-53); Hemoglobin 10.2 g/dL (13.5-17.5); Lymphocytes Absolute Auto 300 /uL (1100-4500); Lymphocytes Percent Auto 1.4 % (25-40); Mean Corpuscular HGB Conc 31.6 % (30-36); Mean Corpuscular Hemoglobin 26.9 PG (26-34); Monocytes Absolute Auto 500 /uL (0-900); Monocytes Percent Auto 2.4 % (3-14); Neutrophils Absolute Auto 20100 /uL (1500-7000); Platelet Count 325 X10^3/uL (150-400); Red Blood Cell Count 3.79 X10^6/uL (4.5-5.9); Red Cell Distribution Width 17.6 % (11.6-14.8); White Blood Cell Count 20.9 X10^3/uL (4.5-11.0)
[2019-10-06 06:04] LABS: BUN Creatinine Ratio 31.4 (6-22); Blood Urea Nitrogen 16 mg/dL (9-20); Calcium 8.3 mg/dL (8.4-10.2); Carbon Dioxide 26 mmol/L (22-32); Chloride 105 mmol/L (98-107); Estimated Glomerular Filt Rate > 60.0 mL/min (>60); Glucose 115 mg/dL (80-110); HEMOLYSIS < 15 (0-50); Potassium 3.3 mmol/L (3.4-5.1); Sodium 135 mmol/L (137-145)
[2019-10-06 07:00] VITALS: O2SAT 92
--- NOTE | 2019-10-06 07:19 | P.PN_ITS ---
Subjective Subjective Date Patient Seen: 10/06/19 Time Patient Seen: 07:20 Interval history: Patient seen and evaluated this morning. Nursing notes were reviewed. Had a long discussion with patient and patient's yesterday about care plans and goals. Patient again and confirmed would like to go home on hospice. Patient does not want any further surgical procedures. Her further evaluation of potential tumor mass in lungs. He does not want a thoracentesis. He would like to continue treatment with antibiotics if this is an infection and pneumonia. Would like to go home with hospice able to in soon to arrange. Patient still complaining of difficulty swallowing did not eat well yesterday. Intermittent pain and uncomfortableness. Having lots of the GI distress with the bowel issues. Exam Vital Signs (past 8 hours): - 10/05/19 23:51 10/06/19 00:00 Temperature 98.0 F Pulse Rate 99 H Respiratory Rate 18 Blood Pressure 100/70 Pulse Oximetry 92 92 Oxygen Delivery Method Room Air Oxygen Flow Rate 0 Narrative Exam Narrative: Gen.: Very weak arousable able to provide a reliable historian. HEENT: Pupils equal round and reactive or mucosa is moist. Cardio: S1-S2 irregular rate and rhythms to stall it murmur Respiratory: Right lung christian lower lung crackles Abdomen: Soft nontender no rebound or guarding no liver spleen enlargement no ap preciable hernias Extremities: Generalized weakness Neurologic: Neurologically intact Objective Labs Result Diagrams: 10/06/19 05:35 10/06/19 05:35 Labs: Laboratory Results - last 24 hr 10/06/19 10/06/19 05:35 05:35 WBC 20.9 H RBC 3.79 L Hgb 10.2 L Hct 32.2 L MCV 85.0 MCH 26.9 MCHC 31.6 RDW 17.6 H Plt Count 325 Neut % (Auto) 96.0 H Lymph % (Auto) 1.[address] [place] % (Auto) 2.4 L Eos % (Auto) 0.0 L Baso % (Auto) 0.2 Neut # (Auto) 84774 H Lymph # (Auto) [address] [place] # (Auto) 500 Eos # (Auto) 0 Baso # (Auto) 0 Sodium 135 L Potassium 3.3 L Chloride 105 Carbon Dioxide 26 BUN 16 Creatinine 0.51 L Estimated GFR > 60.0 BUN/Creatinine Ratio 31.4 H Glucose 115 H Calcium 8.3 L Assessment & Plan Assessment & Plan narrative: Right middle lobe Pneumonia acute community- acquired versus aspiration versus postobstructive due to mass tumor. Patient does not want surgical intervention. Afebrile vital signs are stable. White blood cell count has increased again today. He is on appropriate antibiotics for outpatient community pneumonia including Zithromax and Rocephin. I am concerned his white blood cell count keeps increasing although clinic acutely he looks improved today. I may consult in considered adjusting his antibiotics to a different. Acute hypokalemia. Continue with IV potassium replacement given K riders yesterday need another K rider today. Recheck potassium tomorrow Mild nutrition moderate to severe. Significant malnourishment on examination today with temporal wasting. No muscle mass a very weak. Patient still has poor p.o. intake. Has some chronic thrush in his mouth and tongue. Will switch him from the nystatin swish and swallow to a Diflucan prescription today. Chronic diarrhea. Patient has had chronic diarrhea for the last few years. 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 Stool sample negative for C diff. Diarrhea is improved today. Not quite as much output. Oral thrush with Dysphagia. Place on Diflucan hold is nystatin swish and swallow that he has currently been on. Had a scheduled a swallow evaluation as an outpatient all think we need to do that here in the hospital. Atrial fibrillation. Heart rates well controlled. Previously on anticoagulatio n. Recent admission to the hospital with gastrointestinal bleed his anticoagulation has been held. He is at high risk of stroke. He is on digoxin. This is been helpful in controlling his heart rate. His digoxin level was drawn today which looks good. Acute Anemia recent hospital admission for GI bleed. Anticoagulation held. His numbers are improving. Degenerative disc disease of his back. Patient complaining of significant lumbar spine back pain. Provided prescription for oxycodone hydrocodone. This is inhibiting his ability to get up and ambulate well. Disposition and plan. Long discussion with patient and yesterday. Patient would like to go home with hospice. As he has had a significant decline in his health over the past 2 years and more importantly over the last 3 months. He does not want any surgical interventions for his potential obstruction of his long it would hurt some mass tumor or pneumonia. Will continue treatment with antibiotics. Hospice will be arranged. Patient will go home with hospice available for him. Quality VTE Deep Vein Thrombosis/Pulmonary Embolism Present on Admission: No
[2019-10-06 08:00] VITALS: BP 115/65; PULSE 104; RESP 22; TEMP 36.7; O2SAT 93
--- NOTE | 2019-10-06 08:15 | ST.IPDYTX ---
Visit Care Team Role Provider Type Harjit Pendleton MD Emergency Provider Physician Referring Provider Specialty: Emergency Medicine Address: [address] [place] [address], [address] Email: [email or web address] Leif Healy MD Attending Provider Physician Other Providers Primary Care Provider Specialty: Family Practice Address: [address] [place] [address], [address] Email: [email or web address] Tony Fry MD Admit Provider Physician Specialty: Internal Medicine Address: [address] [place] [address], [address] [place] [address], [address] Email: [email or web address] KEY HOLDER Dysphagia Treatment KEY HOLDER Dysphagia Treatment Start: 10/05/19 10:43 Freq: Status: Active Protocol: Document 10/06/19 14:03 TLC (Rec: 10/06/19 14:10 TLC [id number]) Dysphagia Treatment Session Time Total Visit Minutes 30 Visit Information Visit Number 2 Setting Assessment Location Acute Care Visit Type Note Type Treatment Note Patient Information Subjective Observations Patient seen on two occasions - this AM with breakfast and this afternoon with present Treatment Liquids Trialed Thin Solids Trialed Mechanical Soft Administration Type Dependent Feeding Oral Strategies Upright at 90 degrees,Double Swallow,Controlled Bite/Sip Size Treatment Activities Patient requesting cheerios with milk this AM. He ate half of the bowl. He was unable to recall recommended strategies /precautions from evaluation yesterday. He self-fed at a slow rate, but commented on his tendency to shovel food. Reviewed strategies with patient including small bites/ sips, double swallow. Assessment Assessment of Improvement Patient continues to demonstrate signs of aspiration with PO intake ( coughing immediately after swallow); however, this cannot be fully assessed without MBSS. I returned to patient's room this afternoon to meet with his regarding MBSS. The patient was scheduled for an MBSS the day he was admitted to the hospital. At this time, they are pursuing d /c home on hospice and both the patient and his stated they do not see the point in getting MBSS done at this point. Diet Recommendations Recommendations Continue Current Diet Aspiration Precautions Recommended Precautions Upright at 90 Degrees,Small Bites/Sips,Double Swallow Treatment Plan Appropriate for Continued Therapy No: Patient and his not interested in pursuing ongoing therapy
[2019-10-06] MEDS: POTASSIUM CHLORIDE 40 MEQ in SODIUM CHLORIDE 0.9% 500 ML 130 ML IV (08:34)
[2019-10-06] MEDS: TAMSULOSIN 0.4 MG CAPSULE PO (08:34)
[2019-10-06] MEDS: ACETAMINOPHEN 325 MG TABLET 650 MG PO (08:34)
[2019-10-06] MEDS: predniSONE 10 MG TABLET PO ×2 (08:35→20:50)
[2019-10-06] MEDS: DIGOXIN 0.125 MG TABLET PO (08:35)
[2019-10-06] MEDS: PANTOPRAZOLE 40 MG TABLET PO ×2 (08:35→20:50)
--- NOTE | 2019-10-06 10:30 | CM.DPC ---
Addendum entered by Radha Caal R.N. 10/06/19 15:46: CANDE/Rn gave patients Francesca from [facility]'s phone number [phone]. [facility] called several times but only got voicemail. Cm/Rn Spoke with Francesca and gave patients her number to call her back. Patient stated he wanted to go home tomorrow. Cm/Rn will work with patient, patients and and work out a plan for D/C tomorrow. Cm/RN spoke with patient and his on what they need at home for DME for [facility] to help provide- They asked for over the bed table, bedside commode and a wheel chair. Francesca stated she will get those ordered and set up a time to deliver them to patients home. Patient is adamant with wanting to D/C home tomorrow as is patients . CM will work with [facility] and Staff to see if this is possible. Radha Caal RN Original Note: DCP Continued: EMR reviewed: CM/RN spoke with Francesca with [facility] and she is going to call patients today for an informational visit and to set up any DME that they may need to be delivered prior to D/C and hospice starting. CANDE/RN was informed that hospice cannot start care until thursday at the earliest and they want to make sure patient is able to D/C prior to hospice being set up. Patients Lara notified that [facility] will be calling to do an informational visit. Patient has caregivers at home and and state they are able to care for him prior to starting of Hospice. Cande/RN will speak with patients provider to see if patient will be stable for d/C without hospice started? Also to see how long until patient is ready for D/C home. Radha Caal RN
--- NOTE | 2019-10-06 10:58 | PT.IIE ---
Current Diagnoses Pneumonia, unspecified organism (10/04/19) Surgical History (Last Reviewed 10/04/19 @ 17:42 by Tony Fry MD) Anesthesia (Resolved) History of head, eyes, ears, nose, and throat (HEENT) surgery (Resolved) History of sinus surgery (Resolved) History of surgery of head (Resolved) History of throat surgery (Resolved) Status post cervical spinal fusion (Resolved) Status post colectomy (Resolved) Status post lumbar laminectomy (Resolved) Medical History (Last Reviewed 10/04/19 @ 17:42 by Tony Fry MD) Ankle pain (Chronic) Anxiety (Acute) Aortic aneurysm (Chronic) Atrial fibrillation (Chronic) Cancer of parotid gland (Resolved) Chronic back pain (Chronic) Chronic cough (Chronic) Colorectal cancer (Resolved) Foot pain (Chronic) Head and neck cancer (Resolved) Hx of bronchogenic malignancy (Resolved 07/27/13) Hyperlipidemia (Chronic) Hypertension (Chronic) Lumbar spine pain (Chronic) Lung cancer (Resolved) Malignant neoplasm of colon, unspecified (Resolved 07/27/13) Mid back pain (Chronic) Osteopenia (Chronic 2014) Positive PPD (Resolved) Salivary gland cancer (Resolved) TIA (transient ischemic attack) (Resolved) Physical Therapy Inpatient Evaluation/Re-Eval M1 PT/OT-IP Prior Functional Status Start: 10/06/19 12:23 Freq: NEEDED Status: Active Protocol: Document 10/06/19 10:58 AB (Rec: 10/06/19 12:41 AB [id number]) Medical Review Prior Functional Status Medical History Reviewed Yes Communication able to answer questions when asked but with garbled speech and confusion; pt is drowsy Mobility and Gait per spouse, pt is independent with all mobilities and ambulation using 4WW and that spouse was the one who usually assists her Social History Household Members spouse Living Arrangements House Number of Floors (Floors) Two Floors Number of Stairs To Enter/Railing? pt stays on main level of the house no steps to enter Home Environment High Toilet,Walk in Shower Home Equipment Front Wheel Walker,Four Wheel Walker,Grab Bars Near Toilet, Grab Bars In Shower Employment Status Retired Additional Social History Comment spouse is hoping the pt will be able to go on hospice soon. Plan is for pt to go home under hospice care. M2 PT-IP Current Condition Start: 10/06/19 12:23 Freq: NEEDED Status: Active Protocol: Document 10/06/19 10:58 AB (Rec: 10/06/19 12:41 AB [id number]) Physical Therapy Current Condition Current Condition Evaluation Date 10/06/19 Treatment Diagnosis failure to thrive; difficulty in walking Onset Date 10/04/19 Precautions Other Precautions falls M3 PT-IP Subjective Start: 10/06/19 12:23 Freq: NEEDED Status: Active Protocol: Document 10/06/19 10:58 AB (Rec: 10/06/19 12:41 AB [id number]) Subjective Physical Therapy Visit Type Type Initial Evaluation Visit Start Time 10:58 Visit Stop Time 11:33 Total Visit Minutes 35 Number of GLORY HOLE TENDER Visits 0 Physical Therapy Visit Comments Patient Comments pt stated that he is always tired but agreed to get out of bed Therapy Pain Assessment Pain When Pain Assessed During Mobility Pain Present Pain Present Pain Reported Location Back Scale Used pain scale not stated Pain Management Techniques Distraction,Re-positioning M4 PT-IP Mobility and Gait Start: 10/06/19 12:23 Freq: NEEDED Status: Active Protocol: Document 10/06/19 10:58 AB (Rec: 10/06/19 12:41 AB [email or web address]) PT-Bed Mobility Assessment Supine to Sit Supine to Sit Maximum Assistance,1 Person Assistance,Bedrails PT-Transfer Assessment Sit to and From Stand Sit to and from Stand Moderate Assistance,Maximum Assistance,1 Person Assistance ,Use of Upper Extremities Equipment Transfer Assistive Device Gait Belt,Front Wheeled Walker Orthotic/Prosthetic Devices or Brace: No Transfers Transfer Destination Chair Transfer Technique Stand Step Pivot Transfer Ability Level of Assist Moderate Assistance,Maximum Assistance,1 Person Assistance ,Use of Upper Extremities Comments Mobility Comments BP: 96/52 pt completed supine to sit using bed rail max A and max cues. pt was able to sit on EOB CGA. BP in sitting : 113/58. completed sit to stand mod/max A and max cues and was able to complete step transfer to chair using FWW mod to max A and max cues. asked pt regarding ambulation and refused to do ambulation. stated that he is tired and will not be able to ambulate. positioned pt on chair. call light and table placed within reach. informed spouse regarding equipement needs: w/c and a hospital bed. Left pt with spouse in nurse in room. PT-Balance Assessment Sitting Balance and Reactions Static Sitting Balance Ability Good Dynamic Sitting Balance Ability Fair Standing Balance and Reactions Static Standing Balance Ability Fair Dynamic Standing Balance Ability Poor Device Used FWW M5 PT-IP Objective Assessments Start: 10/06/19 12:23 Freq: NEEDED Status: Active Protocol: Document 10/06/19 10:58 AB (Rec: 10/06/19 12:41 AB [id number]) Orientation Orientation/Cognition Level of Alertness Confusional State Orientation Name,Birthday Safety Awareness Decreased Safety Awareness Memory Description Short Term Impaired Gross Range of Motion Lower Extremity ROM Assessment Within Functional Limits Strength Lower Extremity Strength Assessment Bilaterally Impaired Comments Strength Comments BLE 3+/5 except R foot DF: 1+/ 5 M6 PT-IP Treatment Start: 10/06/19 12:23 Freq: NEEDED Status: Active Protocol: Document 10/06/19 10:58 AB (Rec: 10/06/19 12:41 AB [email or web address]) Physical Therapy Treatment Education Education Provided Safety M7 PT-IP Assessment and Plan Start: 10/06/19 12:23 Freq: NEEDED Status: Active Protocol: Document 10/06/19 10:58 AB (Rec: 10/06/19 12:41 AB [email or web address]) PT Summary Assessment and Plan Potential Rehabilitation Potential Good Status of Condition at Evaluation Evolving Summary Impairments Pain,ROM,Strength,Balance, Coordination,Sensation,Tone, Cognition,Bed Mobility, Transfers,Gait,Activity Tolerance Assessment Summary pt requiring mod to max A with mobility and unable to ambulate at this time. pt presents with decrease activity tolerance affecting mobility independence. Spouse stated that she is hoping that pt goes home with hospice care. will conduct caregiver training if appropriate. currently, pt will require 24/7 assistance and may need to go to SNF if spouse will not be able to assist pt. will continue to assess pt's progress. Goals Bed Mobility Goal Minimal Assistance Transfer Goal Minimal Assistance,Front Wheeled Walker Gait Goal Minimal Assistance,Front Wheel Walker Gait Distance 40 Days to Meet Goals 5 Frequency of Treatment Frequency Of Treatment Once a Day Treatment Plan Physical Therapy Treatment Plan Bed Mobility Training,Transfer Training,Gait Training, Therapeutic Exercise,Balance Retraining,Discharge Planning, Neuromuscular Re-ed Other Recommendations and Next Treatment transfers, ambulation, Focus caregiver training Recommendations To Nursing Amount of Assist Needed 1 Person Assist Discharge Recommendations PT Discharge Recommendations Home with 24/7 Assist,Home Health,SNF Rehab Other Discharge Recommendations depending on progress: home with 24/7 and HHPT vs SNF Transportation Needs at Discharge Private Vehicle,Wheelchair/ Cabulance
[2019-10-06] MEDS: FLUCONAZOLE 100 MG TABLET 200 MG PO (11:29)
--- NOTE | 2019-10-06 13:37 | PC.NURSE ---
PATIENT AMBULATED TO BR WITH 1P ASSIST/FWW AND VERBAL CUES TO KEEP WALKER CLOSE AND STAND UP STRAIGHT. VOIDED. BACK TO RECLINER. NEW IV INSERTED, AC IV WAS LEAKING. SKIN TEAR SUSTAINED W/ DRSG REMOVAL. SKIN FLAP RE-APPROXIMATED APPLIED ALLYVN BORDER FOAM DRSG. OLD SKIN TEAR SITE TO LEFT FA WITH DRIED BLOOD GAUZE. REMOVED GAUZE W/ NS. APPLIED ALLYVN BORDER FOAM DRSG. NEW IV TO L UPPER ARM FLUSHES AND DRAWS. K-RIDER RESUMED.
[2019-10-06 15:55] VITALS: BP 132/67; PULSE 96; RESP 18; TEMP 36.4; O2SAT 97
[2019-10-06 16:09] VITALS: O2SAT 94
[2019-10-06] MEDS: AZITHROMYCIN 500 MG in DEXTROSE 5% IN WATER 250 ML IV (17:39)
[2019-10-06] MEDS: POTASSIUM CHLORIDE 40 MEQ in SODIUM CHLORIDE 0.9% 500 ML 100 ML IV (20:39)
[2019-10-06] MEDS: HYDROCODONE/ACET 5/325 TABLET 1 TAB PO (22:35)
--- NOTE | 2019-10-06 22:38 | PC.NURSE ---
PATIENT ASSISTED TO BSC, SEEMS STRONGER TODAY THAN YESTERDAY ABLE TO STAND LONGER AND GET SELF UP.BACK TO BED,ALARM ON, PATIENT REQUESTED PAIN MEDICATION GIVEN x1 NORCO. REFUSES SCDS
[2019-10-06 23:50] VITALS: BP 101/68; PULSE 140; RESP 18; TEMP 36.6; O2SAT 97
[2019-10-07 00:10] VITALS: O2SAT 95
[2019-10-07 00:24] VITALS: PULSE 82
[2019-10-07] MEDS: CEFTRIAXONE 1 GM/50 ML FROZ.PIGGY IV (05:15)
--- NOTE | 2019-10-07 06:44 | DI.RAD.S_ITS ---
PROCEDURE: XR CHEST 1V INDICATIONS: Pneumonia TECHNIQUE: One view of the chest was acquired. COMPARISON: [facility], CR, XR CHEST 1V, 06/30/2019, 12:23. FINDINGS: Surgical changes and devices: None. Lungs and pleura: Consolidation noted in the right lung base compatible with pneumonia. No pleural effusions or pneumothorax. Mediastinum: Mediastinal contours appear normal. Heart size is normal. Bones and chest wall: No suspicious bony lesions. Overlying soft tissues appear unremarkable. IMPRESSION: Right basilar pneumonia. Dictated by: Lynda Driscoll MD, PhD on 10/07/2019 at 8:48 Approved by: Lynda Driscoll MD, PhD on 10/07/2019 at 8:49
[2019-10-07 06:49] LABS: Add Manual Diff / Slide Review NO; Basophils Absolute Auto 0 /uL (0-100); Basophils Percent Auto 0.2 % (0-2); Eosinophils Absolute Auto 100 /uL (0-450); Eosinophils Percent Auto 0.3 % (2-4); Hematocrit 31.9 % (41-53); Lymphocytes Absolute Auto 400 /uL (1100-4500); Lymphocytes Percent Auto 2.3 % (25-40); Mean Corpuscular HGB Conc 31.4 % (30-36); Mean Corpuscular Hemoglobin 26.8 PG (26-34); Mean Corpuscular Volume 85.3 fL (80-100); Monocytes Absolute Auto 400 /uL (0-900); Monocytes Percent Auto 2.4 % (3-14); Neutrophils Absolute Auto 17000 /uL (1500-7000); Neutrophils Percent Auto 94.8 % (50-75); Platelet Count 298 X10^3/uL (150-400); Red Blood Cell Count 3.73 X10^6/uL (4.5-5.9); Red Cell Distribution Width 17.5 % (11.6-14.8); White Blood Cell Count 17.9 X10^3/uL (4.5-11.0)
[2019-10-07 07:00] VITALS: O2SAT 90
[2019-10-07 07:00] LABS: BUN Creatinine Ratio 36.2 (6-22); Blood Urea Nitrogen 17 mg/dL (9-20); Carbon Dioxide 27 mmol/L (22-32); Chloride 106 mmol/L (98-107); Estimated Glomerular Filt Rate > 60.0 mL/min (>60); Glucose 97 mg/dL (80-110); HEMOLYSIS < 15 (0-50); Potassium 4.1 mmol/L (3.4-5.1); Sodium 136 mmol/L (137-145)
--- NOTE | 2019-10-07 07:36 | PM.DS.1 ---
History of Present Illness History of Present Illness Chief complaint: Failure to Thrive Discharge Providers Provider Date of admission: 10/04/19 17:09 Discharge Date: 10/07/19 Primary care physician: Leif Healy MD Consults: 10/04/19 17:24 Consult to Speech Therapy Evaluate & Treat Comment: Difficulty swallowing Physician Instructions: Evaluate and treat 10/04/19 18:13 Consult to Discharge Planning Routine Comment: Consult to Physical Therapy Evaluate & Treat Comment: Physician Instructions: Evaluate and Treat Discharge provider: Leif Healy MD Summary Hospital Course Discharge Diagnosis: Pneumonia community-acquired or possible postobstructive due to mass tumor. Right middle lobe. Acute hypokalemia Mild nutrition severe Oral thrush Atrial fibrillation Anemia acute with recent gastrointestinal bleed Atrial fibrillation now not on anticoagulation Degenerative disc disease of spine Hospital Course: Patient was meant to the hospital with increasing weakness confusion inability to take care of himself and difficulty with swallowing. On evaluation and workup in the hospital due to weakness pain discomfort he had CT scan done of his abdomen pelvis chest and soft tissue of his neck. Patient has a history of 3 different previous cancers. On admission to the hospital he was found have an elevated white blood cell count. Right middle lobe pneumonia versus mass. Hospital course. Patient was admitted the hospital with IV antibiotics. IV fluid rehydration dietary monitoring physical therapy and occupational therapy. Discussed with patient and about further evaluation of his massive tumor potential pneumonia his lungs in the did not want further surgical intervention thoracentesis or diagnosis of this. The patient is a no code in his advanced care wishes are no aggressive measures. The patient has had a steady progressive clinical decline in his health over the last 2 years and more so over the past few months. After discussion with patient patient's family patient's and patient himself. They have elected to go home with hospice. They wanted to continue treatment of his pneumonia. During his hospitalization is white blood cell count initially kim for the 1st 2 days and by the time of discharge that is stabilized in decreased. His antibiotic choices were ceftriaxone and Zithromax which seemed appropriate. Patient had a MRSA swab which was negative. His covert test was negative. During his hospital stay he had potassium replacement S his potassium was quite low. He had monitoring closely his kidney function and those remained stable. He is quite anemic due to recent admission hospitalization for gastrointestinal bleeding. His warfarin was stopped previously even know he has atrial fibrillation during his hospital stay as heart rate was well controlled and he remained on digoxin. During his stay was provided pain relief for his ongoing back pain and just generalized discomfort. 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 Exam Vital Signs (past 8 hours): - 10/06/19 23:50 10/07/19 00:10 10/07/19 00:24 Temperature 97.9 F Pulse Rate 140 H 82 Respiratory Rate 18 Blood Pressure 101/68 Pulse Oximetry 97 95 Oxygen Delivery Method Room Air Oxygen Flow Rate 0 Objective Labs Result Diagrams: 10/07/19 06:40 10/07/19 06:40 Labs: Laboratory Results - last 24 hr 10/06/19 10/07/19 10/07/19 11:30 06:40 06:40 WBC 17.9 H RBC 3.73 L Hgb 10.0 L Hct 31.9 L MCV 85.3 MCH 26.8 MCHC 31.4 RDW 17.5 H Plt Count 298 Neut % (Auto) 94.8 H Lymph % (Auto) 2.3 L Cooper % (Auto) 2.4 L Eos % (Auto) 0.3 L Baso % (Auto) 0.2 Neut # (Auto) 97270 H Lymph # (Auto) 400 L Cooper # (Auto) 400 Eos # (Auto) 100 Baso # (Auto) 0 Sodium 136 L Potassium 4.1 Chloride 106 Carbon Dioxide 27 BUN 17 Creatinine 0.47 L Estimated GFR > 60.0 BUN/Creatinine Ratio 36.2 H Glucose 97 Calcium 9.0 Nasal Screen MRSA (PCR) Negative for mrsa Discharge Plan Discharge Plan Patient Disposition: Home Discharge orders & Medications Prescriptions: New cefdinir 300 mg capsule 300 mg PO BID Qty: 14 RF: 0 fluconazole [Diflucan] 150 mg tablet 150 mg PO DAILY Qty: 7 RF: 0 Continued cholecalciferol (vitamin D3) [Vitamin D3] 1,000 UNIT tablet 1,000 unit PO QDAY Qty: 0 RF: 0 digoxin [Lanoxin] 125 mcg tablet 125 mcg PO QDAY Qty: 90 RF: 5 ipratropium bromide 42 mcg (0.06 %) spray,non-aerosol 2 spray NASAL QID Qty: 15 RF: 1 pantoprazole 40 mg tablet,delayed release (DR/EC) 40 mg PO BID Qty: 180 RF: 3 donepezil [Aricept] 10 mg tablet 10 mg PO BID RF: 0 prednisone 5 mg tablet 10 mg PO BID RF: 0 acetaminophen 500 mg Capsule 500 mg PO BID RF: 0 tamsulosin [Flomax] 0.4 mg capsule 0.4 mg PO BEDTIME RF: 0 mirtazapine 7.5 mg tablet 15 mg PO BEDTIME RF: 0 Changed pantoprazole 40 mg tablet,delayed release (DR/EC) 40 mg PO QD-BID Qty: 180 RF: 3 Discontinued nystatin 100,000 unit/mL suspension 5 ml PO QID 10 Days Qty: 200 RF: 0 Follow up/Referrals: Leif Healy MD [Primary Care Provider] - Discharge Health Status Multidrug resistant organism: No MDRO Diet/Activity/Treatments Diet: Diet as Tolerated Activity: As tolerated Visit Report/Discharge Packet Visit Report Forms: Patient Portal/API, Stroke Signs & Symptoms Discharge Data Primary Care Provider: Leif Healy Quality VTE Deep Vein Thrombosis/Pulmonary Embolism Present on Admission: No
[2019-10-07 07:57] VITALS: O2SAT 90
--- NOTE | 2019-10-07 08:55 | CM.DPC ---
Addendum entered by Radha Caal R.N. 10/07/19 15:50: Cande/RN met with patient and patients now states that she thinks she will need BLS transport home. CM/RN explained that they could be charged for BLS transport home between 500-800 dollars. Patients stated that she was fine with the cost just wanted him home safely. CANDE/RN called Dr Healy to get approval for BLS transport. Dr. Healy gave verbal order for BLS transport. CM/RN filled out Ambulance transport form and called for an ambulance that will be here at 6pm to transport patient home. Patient and family notified and nursing staff notified Radha Caal RN. Original Note: DCP continued: EMR reviewed: aCnde/Rn Spoke to patients and discussed D/C home today. patient and patients were very happy to be going home today. They plan on transporting patient home in private vehicle with FWW to help him walk inside the home with assistance from patients and daughter. Patients daughter will be staying with them tonight and patients son will be with them tomorrow to assist the patient with needs until hospice starts Thursday. CANDE/Rn spoke with Francesca from [facility] and they are delivering DME- wheel chair, hospital bed, over the bed table and bedside commode today from [facility]. patients feel confident in taking patient home and has help set up for now until Thursday when Hospice will start. Patients nurse Marie notified. Radha Caal RN
[2019-10-07 09:30] VITALS: BP 118/81; PULSE 110; RESP 20; TEMP 37.2; O2SAT 93
--- NOTE | 2019-10-07 09:30 | PT.IPTN ---
Current Diagnoses Pneumonia, unspecified organism (10/04/19) Physical Therapy Treatment Note M2 PT-IP Current Condition Start: 10/06/19 12:23 Freq: NEEDED Status: Active Protocol: Document 10/06/19 10:58 AB (Rec: 10/06/19 12:41 AB [id number]) Physical Therapy Current Condition Current Condition Evaluation Date 10/06/19 Treatment Diagnosis failure to thrive; difficulty in walking Onset Date 10/04/19 Precautions Other Precautions falls M3 PT-IP Subjective Start: 10/06/19 12:23 Freq: NEEDED Status: Active Protocol: Document 10/07/19 09:30 AB (Rec: 10/07/19 12:32 AB [id number]) Subjective Physical Therapy Visit Type Type Treatment Note Visit Start Time 09:30 Visit Stop Time 11:15 Total Visit Minutes 56 Notes pt seen for split visits: 930 am to 958 and 1047 to 1115 Number of DRIER ATTENDANT Visits 0 Physical Therapy Visit Comments Patient Comments pt is agreeable to do PT Therapy Pain Assessment Pain When Pain Assessed During Mobility Location Back Scale Used pain scale not stated Pain Management Techniques Distraction,Modification of Treatment,Re-positioning M4 PT-IP Mobility and Gait Start: 10/06/19 12:23 Freq: NEEDED Status: Active Protocol: Document 10/07/19 09:30 AB (Rec: 10/07/19 12:32 AB [id number]) PT-Bed Mobility Assessment Supine to Sit Supine to Sit Maximum Assistance,1 Person Assistance,Head of Bed Elevated,Bedrails PT-Transfer Assessment Sit to and From Stand Sit to and from Stand Moderate Assistance,Maximum Assistance,1 Person Assistance ,Use of Upper Extremities Equipment Transfer Assistive Device Gait Belt,Front Wheeled Walker Orthotic/Prosthetic Devices or Brace: No Transfers Transfer Destination Bed,Chair Transfer Technique Stand Step Pivot Transfer Ability Level of Assist Moderate Assistance,1 Person Assistance,Use of Upper Extremities Comments Mobility Comments pt completed supine to sit max A and max cues using bed rail and with HOB elevated. completed sit to stand mod to max A and max cues and able to transfer to the chair using FWW max A and cues. set up pt for breakfast. spouse came in and stated that pt will be going home today but hospice will not start until thursday. informed spouse that caregiver training is recommended. spouse stated that pt's daughter and son will be available to assist. spouse stated that daughter will come in for training. Left pt to eat breakfast and PT checked back after a few hours for caregiver training. pt's daughter present. educated on how use safety belt and how to assist pt. pt 's daughter was able to put safety belt on pt. pt completed sit to stand with daughter assisting but pt has to assist daughter and pt completed transfer to bed using FWW mod to max A. pt agreed to transfer back to chair using FWW requiring mod to max A and max cues. positioned pt on the chair. call light and table placed within reach. unable to complete further caregiver training due to pt's fatigue. educated family regarding equipement needs and assistance needs. family stated that there will be people that can assist. M5 PT-IP Objective Assessments Start: 10/06/19 12:23 Freq: NEEDED Status: Active Protocol: Document 10/06/19 10:58 AB (Rec: 10/06/19 12:41 AB [id number]) Orientation Orientation/Cognition Level of Alertness Confusional State Orientation Name,Birthday Safety Awareness Decreased Safety Awareness Memory Description Short Term Impaired Gross Range of Motion Lower Extremity ROM Assessment Within Functional Limits Strength Lower Extremity Strength Assessment Bilaterally Impaired Comments Strength Comments BLE 3+/5 except R foot DF: 1+/ 5 M6 PT-IP Treatment Start: 10/06/19 12:23 Freq: NEEDED Status: Active Protocol: Document 10/07/19 09:30 AB (Rec: 10/07/19 12:32 AB [id number]) Physical Therapy Treatment Education Education Provided Safety M7 PT-IP Assessment and Plan Start: 10/06/19 12:23 Freq: NEEDED Status: Active Protocol: Document 10/07/19 09:30 AB (Rec: 10/07/19 12:32 AB [id number]) PT Summary Assessment and Plan Potential Rehabilitation Potential Fair Summary Impairments Pain,ROM,Strength,Balance, Coordination,Sensation,Tone, Cognition,Bed Mobility, Transfers,Gait,Activity Tolerance Progress Towards Goals Slow Progress due to Medical Issues,Slow Progress due to Activity Tolerance Assessment Summary pt continues to require mod to max A with mobility. pt plans to go home with family today and will have hospice starting thursday per family. educated family regarding equipement needs and stated that hospice will be delivering DMEs today. conducted caregiver training but unable to do much due to pt's fatigue. family is aware of pt's mobility assistance needs and has been informed and educated on how to assist pt safely. Goals Bed Mobility Goal Minimal Assistance Transfer Goal Minimal Assistance,Front Wheeled Walker Gait Goal Minimal Assistance,Front Wheel Walker Gait Distance 40 Days to Meet Goals 5 Frequency of Treatment Frequency Of Treatment Once a Day Treatment Plan Physical Therapy Treatment Plan Bed Mobility Training,Transfer Training,Gait Training, Therapeutic Exercise,Balance Retraining,Discharge Planning, Neuromuscular Re-ed Other Recommendations and Next Treatment transfers, ambulation, Focus caregiver training Recommendations To Nursing Amount of Assist Needed 1 Person Assist Discharge Recommendations PT Discharge Recommendations Home with 24/7 Assist,Home Health,SNF Rehab Other Discharge Recommendations depending on progress: home with 24/7 and HHPT vs SNF Transportation Needs at Discharge Wheelchair/Cabulance,Stretcher /Ambulance
[2019-10-07 10:05] VITALS: BP 118/81; PULSE 110
[2019-10-07] MEDS: predniSONE 10 MG TABLET PO (10:05)
[2019-10-07] MEDS: PANTOPRAZOLE 40 MG TABLET PO (10:05)
[2019-10-07] MEDS: TAMSULOSIN 0.4 MG CAPSULE PO (10:05)
[2019-10-07] MEDS: DIGOXIN 0.125 MG TABLET PO (10:05)
[2019-10-07] MEDS: FLUCONAZOLE 100 MG TABLET 200 MG PO (10:06)
[2019-10-07] MEDS: SODIUM CHLORIDE 0.9% FLUSH 10 ML IV (10:07)
--- NOTE | 2019-10-07 11:23 | PC.NURSE ---
Addendum entered by Cullen Muniz R.N. 10/07/19 14:39: Family to return this afternoon after meeting with Hospice and setting up equipment and house. Pt up in chair, then settled to bed brief changed oral care done. Pt restful. Addendum entered by Cullen Muniz R.N. 10/07/19 11:30: Pt's family going home to meet with Hospice and then will return this afternoon to fruit or nut picker Pt. Original Note: Pt arousable to voice, follows commands, some confusion, recognize and daughter. Up with PT, taking small amount of b'fast.. took pills whole in applesauce...slowly. Family attentive at bedside. Voicing appropriate questions and concerns.
--- NOTE | 2019-10-07 17:36 | PC.NURSE ---
Pt spouse Jessica understands discharge instructions and states she has all of patient's belongings. Pt will be going home with spouse via BLS with hospice care.
== END 2019-10-07 18:24 | disposition hospice, home (50) | DRG 178 ==
LOC: ED 14:02 → AC 17:10
PROVIDERS: Admitting Provider Internal Medicine; Emergency Provider Emergency Medicine; PCP Family Medicine; Referring Provider Emergency Medicine; Visit Provider Family Medicine
DX: J69.0 Pneumonitis due to inhalation of food and vomit (principal); Z68.1 Body mass index [BMI] 19.9 or less, adult; E44.0 Moderate protein-calorie malnutrition; B37.0 Candidal stomatitis; C34.31 Malignant neoplasm of lower lobe, right bronchus or lung; I48.21 Permanent atrial fibrillation; D62 Acute posthemorrhagic anemia; J15.20 Pneumonia due to staphylococcus, unspecified; J15.4 Pneumonia due to other streptococci; R13.13 Dysphagia, pharyngeal phase; E87.6 Hypokalemia; K52.9 Noninfective gastroenteritis and colitis, unspecified; E86.0 Dehydration; I10 Essential (primary) hypertension; M51.36 Other intervertebral disc degeneration, lumbar region; E78.5 Hyperlipidemia, unspecified; N40.0 Benign prostatic hyperplasia without lower urinary tract symptoms; Z87.891 Personal history of nicotine dependence; Z66 Do not resuscitate; Z79.52 Long term (current) use of systemic steroids; Z85.038 Personal history of other malignant neoplasm of large intestine; Z85.89 Personal history of malignant neoplasm of other organs and systems; Z11.59 Encounter for screening for other viral diseases
CPT/HCPCS: 36415; 70450; 70490; 71045; 71250; 74176; 80048; 80053; 80162; 81003; 81015; 82550; 83605; 83690; 84484; 85025; 85610; 85730; 87040; 87220; 87493; 87635; 87797; 92526; 92610; 93005; 96361; 96365; 96368; 96375; 97162; 97530; 99223; 99232; 99238; 99284; 99285; J0696; J3480